=== PATIENT | female | born 1965 ===

== ENCOUNTER 2022-04-03 18:59 | Inpatient (IN) | payer OTHER, SELFPAY ==
--- NOTE | ~2022-04-03 | XR_ITS ---
EXAMINATION: XR CHEST CLINICAL INFORMATION: NG tube placement COMPARISON: 04/04/2022 TECHNIQUE: Frontal view of the chest was obtained. FINDINGS: Enteric tube tip lies in the region of the upper thoracic esophagus at the level of T2/T3. Lung volumes are symmetric. No focal consolidation is seen. No evidence of pneumothorax or significant pleural effusion, though the lateral left base is not fully included on this exam. The cardiomediastinal contour is unremarkable. No acute osseous findings are seen. XR/XR chest 1V IMPRESSION: 1. Enteric tube tip lies in the region of the upper thoracic esophagus. Repositioning recommended. 2. No acute cardiopulmonary findings.
--- NOTE | ~2022-04-03 | XR_ITS ---
EXAMINATION: XR CHEST CLINICAL INFORMATION: NG tube placement COMPARISON: Chest x-ray from earlier today TECHNIQUE: Frontal view of the chest was obtained. FINDINGS: Enteric tube tip lies in the region of the distal stomach, with side-port below the level of the diaphragm. The lungs are clear with no focal consolidation. No evidence of pneumothorax, pulmonary edema, or pleural effusions. The cardiomediastinal silhouette is unremarkable. No acute osseous findings. XR/XR chest 1V IMPRESSION: Enteric tube tip in the region of the distal stomach.
--- NOTE | ~2022-04-03 | XR_ITS ---
EXAMINATION: XR CHEST CLINICAL INFORMATION: G-tube confirmation COMPARISON: 10/30/2019 TECHNIQUE: Frontal view of the chest was obtained. FINDINGS: Enteric tube courses into the stomach with side-port below the level of the gastroesophageal junction. Lung volumes are symmetric. No focal consolidation is seen. No evidence of pneumothorax. No significant pleural effusion, though the lateral left base is not fully included on this exam. The cardiomediastinal contour is unremarkable. No acute osseous findings are seen. XR/XR chest 1V IMPRESSION: Enteric tube courses into the stomach with side-port below the level of the gastroesophageal junction.
--- NOTE | ~2022-04-03 | CT_ITS ---
EXAMINATION: CT ABDOMEN AND PELVIS WITHOUT CONTRAST CLINICAL INFORMATION: Abdominal pain COMPARISON: None TECHNIQUE: Multidetector volumetric imaging was performed from the superior aspect of the liver through the pubic symphysis. Sagittal and coronal reformatted images were obtained on the technologist's workstation. This CT examination was performed using dose optimization techniques as appropriate, variously including the following: *Automated exposure control *Adjustment of mA and/or kV according to patient size (this includes techniques or standardized protocols for targeted exams where dose is matched to indication/reason for exam; i.e. extremities or head) *Use of iterative reconstruction technique DLP: 395 mGy-cm FINDINGS: LUNG BASES: The visualized lung bases are unremarkable. LIVER, GALLBLADDER, AND BILIARY TREE: The liver is normal in size, shape, and attenuation. No focal hepatic lesion or biliary ductal dilatation is present. The gallbladder is unremarkable with no evidence of radiopaque gallstones, gallbladder wall thickening, or obvious pericholecystic inflammatory changes. PANCREAS: Unremarkable. SPLEEN: Unremarkable. ADRENAL GLANDS: Unremarkable. KIDNEYS AND URETERS: The kidneys are normal in size, shape, and attenuation. No hydronephrosis, hydroureter, or calculi seen. No perinephric stranding. BLADDER: Unremarkable. GASTROINTESTINAL TRACT: Large volume stool in the rectal vault with thickening of the rectosigmoid colon. The large bowel is otherwise decompressed. There are multiple dilated loops of small bowel extending to the ileocolic valve, a discrete transition point is not visualized. Left mid hemiabdomen anastomosis is noted. There is free pelvic fluid. ABDOMINAL WALL: No significant hernia is appreciated. Midline surgical incision scar is noted. LYMPH NODES: Normal. VASCULAR: Unremarkable. PELVIC VISCERA: Unremarkable. OSSEOUS STRUCTURES: Unremarkable. CT/CT abdomen pelvis wo IV con IMPRESSION: 1. Multiple dilated loops of small bowel extending to the ileocolic valve, a discrete transition point is not visualized. These findings are concerning for small bowel obstruction. 2. Large volume stool in the rectal vault with thickening of the rectosigmoid colon. This may reflect stercoral colitis. 3. There is free pelvic fluid which may be secondary to inflammation or bowel obstruction. Fleischner guidelines were followed.
[2022-04-03 19:05] VITALS: BP 136/101; RESP 18; TEMP 36.1; BMI 18.7
[2022-04-03 20:13] LABS: MANUAL DIFF FLAG NO
[2022-04-03 20:14] LABS: Basophils Percent Auto 0.2 % (0-2); Eosinophils Percent Auto 0.2 % (0-4); Hematocrit 48.7 % (37.0-47.0); Hemoglobin 15.8 g/dl (12.0-16.0); Imm Gran Abs Auto 0.03 X10*3/uL (0.00-0.03); Imm Gran Pct Auto 0.3 % (0.0-0.4); Lymphocytes Absolute Auto 1.5 X10*3/uL (1.2-4.9); Mean Corpuscular HGB Conc 32.4 g/dl (31.0-35.0); Mean Corpuscular Hemoglobin 29.3 pg (27.0-33.0); Mean Corpuscular Volume 90.2 fL (80.0-98.0); Mean Platelet Volume 10.6 fL (9.4-12.3); Monocytes Absolute Auto 0.6 X10*3/uL (0.1-1.2); Monocytes Percent Auto 5.5 % (2-11); Neutrophils Absolute Auto 9.3 x10*3/uL (2.0-8.3); Neutrophils Percent Auto 80.8 % (45-73); Platelet Count 345 X10*3/uL (160-400); Red Cell Distribution Width 13.1 % (11.0-16.0); White Blood Count 11.5 X10*3/uL (4.8-10.8)
[2022-04-03 20:39] LABS: Anion Gap 22 (12-20); Blood Urea Nitrogen 33 mg/dL (9-16); Calcium 10.3 mg/dL (8.4-10.2); Carbon Dioxide 33 mmol/L (22-29); Chloride 96 mmol/L (96-108); Creatinine Clr Calc Pharmacy 61.6; Estimated Glomerular Filt Rate > 60; Glucose Random 133 mg/dL (60-115); Potassium 3.2 mmol/L (3.3-5.1); Sodium 148 mmol/L (135-145)
--- NOTE | 2022-04-03 22:15 | PC.NURSE ---
PT laying in stretcher, no apparent distress. Daughter at bedside, reports PT c/o abd pain and black emesis. PT not able to formulate sentences, word salad. 5/10 on the faces pain scale. IV placed. PT able to stand on side of bed with two assist.PT incontinent of stool/urine. Incontinent care provided.
--- NOTE | 2022-04-03 22:23 | ED_ITS ---
HPI - Nausea/Vomiting/Diarrhea General Chief complaint: Nausea/Vomiting/Diarrhea Stated complaint: vomiting, not feeling well Time Seen by Provider: 04/03/22 22:15 Source: family Limitations: other (dementia) History of Present Illness HPI Narrative: This is a 56 years old female with history of early dementia no verbal a baseline, presented with the daughter with a chief complaint of nausea vomiting the history is obtained by the daughter that tells me she has been vomiting today. MD elicited complaint: vomiting and diarrhea Pertinent past history: other (dementia) Onset (ago): hour(s) (10) Description of diarrhea: watery Associated nausea: Yes Associated abdominal pain: Yes Related Data Home Medications Medication Instructions Recorded Confirmed amlodipine 10 mg tablet 1 tab PO DAILY 04/04/22 04/04/22 fluoxetine 10 mg capsule 1 cap PO DAILY 04/04/22 04/04/22 hydrochlorothiazide 25 mg tablet 1 tab PO DAILY 04/04/22 04/04/22 risperidone 0.5 mg tablet 1 tab PO BID 04/04/22 04/04/22 trazodone 50 mg tablet 1 tab PO DAILY 04/04/22 04/04/22 Previous Rx's Medication Instructions Recorded amlodipine 10 mg tablet 10 mg PO DAILY 90 days #90 tabs 02/21/21 hydrochlorothiazide 25 mg tablet 25 mg PO DAILY 90 days #90 tabs 02/21/21 risperidone 0.5 mg tablet 0.5 mg PO BID 30 days #60 tabs 05/07/21 fluoxetine 10 mg capsule 10 mg PO DAILY 30 days #30 caps 09/24/21 trazodone 50 mg tablet 50 mg PO DAILY 30 days #30 tabs 09/24/21 Allergies Allergy/AdvReac Type Severity Reaction Status Date / Time No Known Allergies Allergy Verified 04/03/22 19:18 [No Known Allergies*] Review of Systems Review of Systems: Yes Unobtainable due to mental condition (dementia) Gastrointestinal: Gastrointestinal: Reports nausea PMF Past Medical History Attestation statement: The following information was validated with the patient. PMFSH Narrative: Dementia, depression, history of overdose Medical History B12 deficiency Surgical History History of section History of incisional hernia repair History of ventral hernia repair Family History Family History Father Pacemaker Chronic mental illness Hypertension Mother Hypertension Chronic mental illness Family/Other Chronic mental illness Brother No problems noted. Sister No problems noted. Son No problems noted. Daughter No problems noted. Daughter No problems noted. Daughter No problems noted. Social History Social History Patient Tobacco Use Status: Former Tobacco user Advance Directives: No Advance Directives Information Provided: Yes Nutrition Risks: Anorexia Physical Exam Vital Signs: Vital Signs: Last Vital Signs Temp 97.4 F 04/04/22 00:28 Pulse 76 04/04/22 00:28 Resp 16 04/04/22 00:28 BP 146/96 H 04/04/22 00:28 Pulse Ox 100 04/04/22 00:28 O2 Del Method 04/04/22 00:28 BMI result Body Mass Index 18.7 Const: General: cooperative Nutritional Appearance: average body habitus HEENT: Head: Yes normal to inspection General nose exam: Normal external nose present Face and sinus: Yes normal facial exam Mouth: Normal oral and palatal mucosa present Throat: Yes posterior oropharynx normal Neck: Neck: Yes normal visual inspection and Yes full ROM Chest: Chest palpation & inspection: normal inspection of the chest Resp: Effort & Inspection: normal respiratory effort Cardio: Rate: regular rate Rhythm: regular rhythm GI: Inspection: Yes normal to inspection Palpation (GI): Soft to palpation, not firm, nontender and no guarding Auscultation: normal bowel sounds Skin: General skin exam: no rashes or lesions noted and elasticity normal Rashes: no rashes Neuro: Other: She is awake and alert, she is nonverbal a baseline Course Reevaluation(s) Reevaluation #1: case d/w Dr Monsivais will admit the pt Time: 00:44 Medications Administered Generic Name Dose Route Start Last Admin Trade Name Freq PRN Reason Stop Dose Admin Lactated Ringer's 1,000 mls @ 999 mls/hr 04/04/22 00:15 04/04/22 00:24 Lr IV 04/04/22 01:15 999 mls/hr .Q1H1M KJ Administration Discontinued Medications Generic Name Dose Route Start Last Admin Trade Name Freq PRN Reason Stop Dose Admin Lactated Ringer's 500 mls @ 999 mls/hr 04/03/22 22:30 04/04/22 00:01 Lr IV 04/03/22 23:00 Infused .Q31M KJ Infusion Ondansetron HCl 4 mg 04/03/22 22:18 04/03/22 23:04 Ondansetron Hcl 4 Mg/2 Ml Vial IVPUSH 04/03/22 22:19 4 mg ONCE ONE Administration Medical Decision Making Medical Decision Making [facility] Narrative: 56 years old woman presented with the nausea vomiting will get labs IV fluid reassess Differential Diagnosis Differential Diagnoses: The differential diagnosis associated with the presentation includes Colitis diverticulitis gastroenteritis Admission/Observation Consideration of admission/observation: Escalation of care including admission/observation considered Consult Healthcare Provider Management of the patient was discussed with: Acid Bleacher Dr monsivais Lab Data [facility] Lab Attestation statement: I reviewed the patient's lab results. 04/03/22 20:08 04/03/22 20:08 Labs: Lab Results 04/03/22 04/03/22 Range/Units 20:08 20:08 WBC 11.5 H (4.8-10.8) X10*3/uL RBC 5.40 (4.20-5.50) X10*6/uL Hgb 15.8 (12.0-16.0) g/dl Hct 48.7 H (37.0-47.0) % MCV 90.2 (80.0-98.0) fL MCH 29.3 (27.0-33.0) pg MCHC 32.4 (31.0-35.0) g/dl RDW 13.1 (11.0-16.0) % Plt Count 345 (160-400) X10*3/uL MPV 10.6 (9.4-12.3) fL Immature Gran % (Auto) 0.3 (0.0-0.4) % Neut % (Auto) 80.8 H (45-73) % Lymph % (Auto) 13.0 L (20-40) % [place] % (Auto) 5.5 (2-11) % Eos % (Auto) 0.2 (0-4) % Baso % (Auto) 0.2 (0-2) % Lymph # (Auto) 1.5 (1.2-4.9) X10*3/uL [place] # (Auto) 0.6 (0.1-1.2) X10*3/uL Eos # (Auto) 0.0 (0.0-0.4) X10*3/uL Baso # (Auto) 0.0 (0.0-0.2) X10*3/uL Abs Immat Gran (auto) 0.03 (0.00-0.03) X10*3/uL Absolute Neuts (auto) 9.3 H (2.0-8.3) x10*3/uL Absolute Nucleated RBC 0.000 (0.0-0.012) X10*3/uL Nucleated RBC % (auto) 0.0 (0.0-0.2) /100WBC Sodium 148 H (135-145) mmol/L Potassium 3.2 L (3.3-5.1) mmol/L Chloride 96 (96-108) mmol/L Carbon Dioxide 33 H (22-29) mmol/L Anion Gap 22 H (12-20) BUN 33 H (9-16) mg/dL Creatinine 0.84 (0.5-1.4) mg/dL Estim Creat Clear Calc 61.6 Estimated GFR > 60 Random Glucose 133 H (60-115) mg/dL Calcium 10.3 H (8.4-10.2) mg/dL Independent Interpretation I performed an independent interpretation of an: CT Scan Interpretation: i reviewed ct scan my self Radiology Impression Discussion of test interpretation with radiology: I have reviewed the radiologist's reading. Radiologist Impression: normal in size, shape, and attenuation. No hydronephrosis, hydroureter, or calculi seen. No perinephric stranding. ? BLADDER: Unremarkable.? GASTROINTESTINAL TRACT: Large volume stool in the rectal vault with thickening of the rectosigmoid colon. The large bowel is otherwise decompressed. There are multiple dilated loops of small bowel extending to the ileocolic valve, a discrete transition point is not visualized. Left mid hemiabdomen anastomosis is noted. There is free pelvic fluid. ABDOMINAL WALL: No significant hernia is appreciated. Midline surgical incision scar is noted. LYMPH NODES: Normal. VASCULAR: Unremarkable. PELVIC VISCERA: Unremarkable.? OSSEOUS STRUCTURES: Unremarkable.? CT/CT abdomen pelvis wo IV con IMPRESSION: 1.? Multiple dilated loops of small bowel extending to the ileocolic valve, a discrete transition point is not visualized. These findings are concerning for small bowel obstruction. 2.? Large volume stool in the rectal vault with thickening of the rectosigmoid colon. This may reflect stercoral colitis. 3.? There is free pelvic fluid which may be secondary to inflammation or bowel obstruction. Fleischner guidelines were f Independent Historian Clinical information obtained from an independent historian. History obtained from or confirmed by: Other (Daughter) External Record Review External record reviewed: Inpatient record Chronic Conditions Patient?s care impacted by: Other (dementia) Discharge Plan Discharge Clinical Impression: SBO (small bowel obstruction) Patient Disposition: Admitted As Inpatient
[2022-04-03] MEDS: ondansetron HCL 4 MG/2 ML VIAL IVPUSH (23:04)
[2022-04-03] MEDS: Lactated Ringers 500 ML 999 ML IV (23:13)
[2022-04-04] VITALS (8 sets, daily range): BP systolic 99–156; BP diastolic 69–96; PULSE 65–100; RESP 12–76; TEMP 35.7–37.3; O2SAT 95–100; BMI 18.7
[2022-04-04] MEDS: Lactated Ringers 1,000 ML 999 ML IV (00:24)
[2022-04-04 01:20] LABS: COVID-19 Test Negative (Negative); IDNOW Serial# 6674DD1D
[2022-04-04] MEDS: Dextrose 5 % and Lactated Ring 1,000 ML 125 ML IVCONT ×3 (01:28→17:21)
[2022-04-04] MEDS: Heparin Sodium,Porcine 5,000 UNIT/ML VIAL 5000 UNIT SUBCUT ×2 (01:28→15:16)
--- NOTE | 2022-04-04 03:50 | PC.NURSE ---
NG tube inserted to right nare, secured. Draining dark brown/black liquid. x-ray obtained. Daughter remains at bedside.
--- NOTE | 2022-04-04 07:49 | P.HPGS_ITS ---
History of Present Illness History of Present Illness Date of Service: 04/04/22 Chief complaint: small bowel obstruction Narrative: Shalonda Murguia is a 56 year old female presenting with complaints of nausea and vomiting, evaluated in the emergency department and determined to have a small b owel obstruction. Her past history is significant for dementia and she is non- verbal. She has a previous surgical history of an abdominal hernia repair in [place] complicated by mesh infection. 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 She was previously admitted to the surgical service in 2018 for small bowel obstruction and found to have a recurrent incisional her álvaro. She underwent hernia repair without mesh at that time. She returns today with abdominal distension, nausea, vomiting and diarrhea. CT abdomen without contrast revealed diffusely dilated small bowel with a large amount of stool in the rectum with surrounding inflammation. No definite transition point is identified. Review of Systems Review of Systems: Yes Unobtainable due to mental status PMF Past Medical History Medical History B12 deficiency Family History Family History Father Pacemaker Chronic mental illness Hypertension Mother Hypertension Chronic mental illness Family/Other Chronic mental illness Brother No problems noted. Sister No problems noted. Son No problems noted. Daughter No problems noted. Daughter No problems noted. Daughter No problems noted. Surgical History Surgical History History of section History of incisional hernia repair History of ventral hernia repair Social History Social History Alcohol intake: never Patient Tobacco Use Status: Former Tobacco user Smoked in Last 30 Days: No Use of substances other than those prescribed or required for medical reasons: No Advance Directives: No Advance Directives Information Provided: Yes Nutrition Risks: Anorexia Patient : No Meds Allergies Allergy/AdvReac Type Severity Reaction Status Date / Time No Known Allergies Allergy Verified 04/03/22 19:18 [No Known Allergies*] Active Medications: Current Medications Heparin Sodium (Porcine) (Heparin Sodium,Porcine 5,000 Unit/Ml Vial) 5,000 unit SUBCUT Q12H KJ Last Admin: 04/04/22 01:28 Dose: 5,000 unit Hydromorphone HCl (Hydromorphone Hcl 0.5 Mg/0.5 Ml Syringe) 0.5 mg IVPUSH Q3H PRN; Protocol PRN Reason: Pain, Severe (Pain Scale 7-10) Dextrose/Lactated Ringer's (D5lr) 1,000 mls @ 125 mls/hr IVCONT .Q8H [facility] Last Admin: 04/04/22 01:28 Dose: 125 mls/hr Ondansetron HCl (Ondansetron Hcl 4 Mg/2 Ml Vial) 4 mg IVPUSH QID PRN PRN Reason: Nausea Pharmacy Consult (Consult Rx Perform Med Rec) 1 each MISCELLANE ONCE PRN PRN Reason: Consult order Sodium Chloride (0.9 % Sodium Chloride Flush 3 Ml Syringe) 3 ml IVFLUSH QSHIFT [facility] Home Medications Medication Instructions Recorded Confirmed Last Taken Type amlodipine 10 mg tablet 1 tab PO DAILY 04/04/22 04/04/22 Unknown History fluoxetine 10 mg capsule 1 cap PO DAILY 04/04/22 04/04/22 Unknown History hydrochlorothiazide 25 mg tablet 1 tab PO DAILY 04/04/22 04/04/22 Unknown History risperidone 0.5 mg tablet 1 tab PO BID 04/04/22 04/04/22 Unknown History trazodone 50 mg tablet 1 tab PO BEDTIME 04/04/22 04/04/22 Unknown History Physical Exam Vital Signs: Vital Signs: Last Vital Signs Temp 97.4 F 04/04/22 00:28 Pulse 77 04/04/22 07:29 Resp 12 04/04/22 07:29 BP 99/72 04/04/22 07:29 Pulse Ox 95 04/04/22 07:29 O2 Del Method 04/04/22 07:29 BMI result Body Mass Index 18.7 Const: Other: somnulent, lethargic, opens eyes to voice, non-verbal Eyes: Sclerae: sclerae normal Resp: Effort & Inspection: normal respiratory effort, not labored, no stridor and no tracheal deviation GI: Inspection: Yes normal to inspection, Yes distended and Yes scar Palpation (GI): Soft to palpation, nontender, no guarding and not rigid Percussion: Yes dullness to percussion Auscultation: Absent bowel sounds Rectal Exam - Female: deferred Extrem: Other: contracted lower extremities Results Results Labs: Short CBC 04/03/22 Range/Units 20:08 WBC 11.5 H (4.8-10.8) X10*3/uL Hgb 15.8 (12.0-16.0) g/dl Hct 48.7 H (37.0-47.0) % Plt Count 345 (160-400) X10*3/uL BMP 04/03/22 20:08 Sodium 148 H Potassium 3.2 L Chloride 96 Carbon Dioxide 33 H BUN 33 H Creatinine 0.84 Calcium 10.3 H Assessment and Plan (1) SBO (small bowel obstruction): Status: Acute (2) Dementia: Status: Acute Plan Unfortunate 56 year old female with severe dementia [facility] apparent small bowel obstruction by non-contrasted CT abdomen and pelvis. Patient with prior history on multiple abdominal surgeries and history of Enterocutaneous fistula. Current exam is difficult to interpret due to the dementia. CT is not very clear as well. NGT placed and drained dark brown/black fluid. Will plan non-operative management with IV hydration and bowel rest/NGT decompression for the next several days. Contrasted CT may be needed if no improvement of symptoms. Time Spent With Patient Time: Total time managing care of this patient today 30 minutes. Quality Stroke Does the patient have a stroke diagnosis?: No VTE Prior VTE?: No VTE Risk Level:: Surgical - moderate VTE Device Contraindication: N/A - Device Ordered VTE Drug Contraindication: N/A - Med Ordered Procedures Date of Service Date of Service: 04/04/22
--- NOTE | 2022-04-04 08:06 | PC.NURSE ---
rn to rn report given randy. pt/daughter aware of plan of care.
--- NOTE | 2022-04-04 08:14 | PHA.MEDREC ---
Pharmacy Consult ? Medication Reconciliation Pharmacy has completed the medication reconciliation. Spoke with daughter via talk show host. Patient last took her medications about 1 week ago. daughter had med list on her phone
--- NOTE | 2022-04-04 13:14 | HO.PM.IMCN ---
History of Present Illness Data of Consult Service Date: 04/04/22 <JERRY Vines - Last Filed: 04/04/22 13:40> Primary Care Provider: Camila Gambino MD <JERRY Vines - Last Filed: 04/04/22 13:40> HPI Reason for consult: Med management <JERRY Vines - Last Filed: 04/04/22 13:40> Pt is a 56-year-old female with a PMH significant for early onset dementia with limited verbal capabilities, HTN, mood disorder, and hx of hernia repair complicated by enterocutaneous fistula who presented to the ED with N/V, abdominal distention, diarrhea and determined to have a SBO. General surgery consult for medication management. Patient is Kyrgyz-speaking only and accompanied by her daughter. Patient seen and evaluated at bedside, somnolent, lethargic, opens eyes to commands but unable to provide HPI. <JERRY Vines - Last Filed: 04/04/22 13:40> Review of Systems Review of Systems: Unable to obtain due to patient's mentation <JERRY Vines - Last Filed: 04/04/22 13:40> [facility] Medical History: Medical History B12 deficiency <JERRY Vines - Last Filed: 04/04/22 13:40> Family History: Family History Father Pacemaker Chronic mental illness Hypertension Mother Hypertension Chronic mental illness Family/Other Chronic mental illness Brother No problems noted. Sister No problems noted. Son No problems noted. Daughter No problems noted. Daughter No problems noted. Daughter No problems noted. <JERRY Vines - Last Filed: 04/04/22 13:40> Surgical History: Surgical History History of section History of incisional hernia repair History of ventral hernia repair <JERRY Vines - Last Filed: 04/04/22 13:40> Social History: Social History Household Members: Family Household Members Other:: lives with son Housing: Apartment Do you presently have visiting nurse or other home services: Yes (2 days per week) Unable to assess alcohol history related to: Unable to respond Alcohol intake: never Patient Tobacco Use Status: Former Tobacco user Tobacco use type: Cigarette Years Smoked: 20 e-Cigarette/Vaping Use: Never Used Second Hand Smoke Exposure: No service: No <JERRY Vines - Last Filed: 04/04/22 13:40> Meds Allergies/Adverse reactions: Allergies Allergy/AdvReac Type Severity Reaction Status Date / Time No Known Allergies Allergy Verified 04/03/22 19:18 [No Known Allergies*] <JERRY Vines - Last Filed: 04/04/22 13:40> Active Medications: Current Medications Amlodipine Besylate (Amlodipine Besylate 10 Mg Tablet) 10 mg PO DAILY [facility]; Protocol Fluoxetine HCl (Fluoxetine Hcl 10 Mg Capsule) 10 mg PO DAILY [facility] Heparin Sodium (Porcine) (Heparin Sodium,Porcine 5,000 Unit/Ml Vial) 5,000 unit SUBCUT Q12H [facility] Last Admin: 04/04/22 01:28 Dose: 5,000 unit Hydromorphone HCl (Hydromorphone Hcl 0.5 Mg/0.5 Ml Syringe) 0.5 mg IVPUSH Q3H PRN; Protocol PRN Reason: Pain, Severe (Pain Scale 7-10) Dextrose/Lactated Ringer's (D5lr) 1,000 mls @ 125 mls/hr IVCONT .Q8H [facility] Last Admin: 04/04/22 09:32 Dose: 125 mls/hr Ondansetron HCl (Ondansetron Hcl 4 Mg/2 Ml Vial) 4 mg IVPUSH QID PRN PRN Reason: Nausea Pharmacy Consult (Consult Rx Perform Med Rec) 1 each MISCELLANE ONCE PRN PRN Reason: Consult order Risperidone (Risperidone 0.5 Mg Tablet) 0.5 mg PO BID [facility] Sodium Chloride (0.9 % Sodium Chloride Flush 3 Ml Syringe) 3 ml IVFLUSH QSHIFT [facility] Last Admin: 04/04/22 09:31 Dose: Not Given Trazodone HCl (Trazodone Hcl 50 Mg Tablet) 50 mg PO BEDTIME [facility] <JERRY Vines - Last Filed: 04/04/22 13:40> Home medications: Home Medications Medication Instructions Recorded Confirmed Last Taken Type amlodipine 10 mg tablet 1 tab PO DAILY 04/04/22 04/04/22 03/28/22 History fluoxetine 10 mg capsule 1 cap PO DAILY 04/04/22 04/04/22 03/28/22 History hydrochlorothiazide 25 mg tablet 1 tab PO DAILY 04/04/22 04/04/22 03/28/22 History risperidone 0.5 mg tablet 1 tab PO BID 04/04/22 04/04/22 03/28/22 History trazodone 50 mg tablet 1 tab PO BEDTIME 04/04/22 04/04/22 03/28/22 History <JERRY Vines - Last Filed: 04/04/22 13:40> Physical Exam Vital Signs and Narrative: Vital Signs: Last Vital Signs Temp 98.5 F 04/04/22 10:00 Pulse 65 04/04/22 08:07 Resp 76 H 04/04/22 10:00 BP 120/73 04/04/22 10:00 Pulse Ox 95 04/04/22 10:00 O2 Del Method 04/04/22 10:00 BMI result Body Mass Index 18.7 <JERRY Vines - Last Filed: 04/04/22 13:40> General: Somnolent, lethargic, opens eyes to verbal commands Resp: CTA bilaterally CVS: S1, S2, RRR GI: Abdomen soft, nontender, nondistended. Bowel sounds absent. Skin: No rash Extremities: No edema <JERRY Vines - Last Filed: 04/04/22 13:40> Results Labs CBC and Chem 7: 04/03/22 20:08 04/03/22 20:08 <JERRY Vines - Last Filed: 04/04/22 13:40> Labs: Laboratory Results - last 24 hr 04/03/22 04/03/22 04/04/22 20:08 20:08 01:03 MCV 90.2 MCH 29.3 MCHC 32.4 RDW 13.1 Plt Count 345 MPV 10.6 Immature Gran % (Auto) 0.3 Neut % (Auto) 80.8 H Lymph % (Auto) 13.0 L [place] % (Auto) 5.5 Eos % (Auto) 0.2 Baso % (Auto) 0.2 Lymph # (Auto) 1.5 [place] # (Auto) 0.6 Eos # (Auto) 0.0 Baso # (Auto) 0.0 Abs Immat Gran (auto) 0.03 Absolute Neuts (auto) 9.3 H Absolute Nucleated RBC 0.000 Nucleated RBC % (auto) 0.0 Anion Gap 22 H Estim Creat Clear Calc 61.6 Estimated GFR > 60 Random Glucose 133 H Calcium 10.3 H COVID-19 ([facility]) Negative COVID-19 Clin Com See Note <JERRY Vines - Last Filed: 04/04/22 13:40> Imaging Radiologist's Impressions: Impressions Abdomen/Pelvis CT 04/03/22 22:57 IMPRESSION: 1. Multiple dilated loops of small bowel extending to the ileocolic valve, a discrete transition point is not visualized. These findings are concerning for small bowel obstruction. 2. Large volume stool in the rectal vault with thickening of the rectosigmoid colon. This may reflect stercoral colitis. 3. There is free pelvic fluid which may be secondary to inflammation or bowel obstruction. Fleischner guidelines were followed. Chest X-Ray 04/04/22 03:59 IMPRESSION: Enteric tube courses into the stomach with side-port below the level of the gastroesophageal junction. <JERRY Vines Last Filed: 04/04/22 13:40> Assessment and Plan (1) SBO (small bowel obstruction): Status: Acute <JERRY Vines - Last Filed: 04/04/22 13:40> (2) Dementia: Status: Acute <JERRY Vines - Last Filed: 04/04/22 13:40> Pt is a 56-year-old female with a PMH significant for early onset dementia with limited verbal capabilities, HTN, mood disorder, and hx of hernia repair complicated by enterocutaneous fistula who presented to the ED with N/V, abdominal distention, diarrhea and determined to have a SBO. General surgery consult for medication management. HTN Continue amlodipine, hold hydrochlorothiazide Monitor BP Mood disorder Continue fluoxetine, risperidone SBO Plan as per Surgery team Thank you for allowing us to participate in the care of this pt. We will follow at this time. Please contact us if there are any acute concerns or questions. <JERRY Vines Last Filed: 04/04/22 13:40> Pt is a 56-year-old female with a PMH significant for early onset dementia with limited verbal capabilities, HTN, mood disorder, and hx of hernia repair complicated by enterocutaneous fistula who presented to the ED with N/V, abdominal distention, diarrhea and determined to have a SBO. General surgery consult for medication management. HTN Continue amlodipine reduce dose to 5mg since bp soft, hold hydrochlorothiazide Monitor BP Mood disorder Continue fluoxetine, risperidone SBO Plan as per Surgery team Thank you for allowing us to participate in the care of this pt. We will follow at this time. Please contact us if there are any acute concerns or questions. <Kris Toro MD - Last Filed: 04/04/22 16:37> Time Spent With Patient Time: Total time managing care of this patient today ____ minutes. <JERRY Vines - Last Filed: 04/04/22 13:40>
--- NOTE | 2022-04-04 13:40 | MHC.CM.PN ---
with interpertator met with pt and dgter basilio gomez [phone] who explins that pt has herpetologist servceis which family is hoping to increase pt lives with brother pt is active with [facility] attempted to do a hcp with pt pt is too confused plan is forpt to return home with [facility] and herpetologist,may need help with transport home
[2022-04-04] MEDS: risperiDONE 0.5 MG TABLET PO (21:22)
[2022-04-04] MEDS: traZODone HCL 50 MG TABLET PO (21:22)
[2022-04-04] MEDS: 0.9 % Sodium Chloride Flush 3 ML SYRINGE IVFLUSH (23:18)
[2022-04-05] VITALS (7 sets, daily range): BP systolic 138–152; BP diastolic 80–92; PULSE 64–78; RESP 15–18; TEMP 36.4–37.1; O2SAT 95–100
[2022-04-05] MEDS: Heparin Sodium,Porcine 5,000 UNIT/ML VIAL 5000 UNIT SUBCUT ×2 (02:16→13:25)
[2022-04-05] MEDS: LORazepam 2 MG/ML VIAL 1 MG IVPUSH (03:40)
[2022-04-05] MEDS: Dextrose 5 % and Lactated Ring 1,000 ML 125 ML IVCONT ×2 (03:43→14:39)
[2022-04-05 06:36] LABS: MANUAL DIFF FLAG NO
[2022-04-05 06:41] LABS: Basophils Percent Auto 0.6 % (0-2); Eosinophils Absolute Auto 0.1 X10*3/uL (0.0-0.4); Eosinophils Percent Auto 0.8 % (0-4); Hematocrit 33.3 % (37.0-47.0); Hemoglobin 10.5 g/dl (12.0-16.0); Imm Gran Abs Auto 0.02 X10*3/uL (0.00-0.03); Imm Gran Pct Auto 0.3 % (0.0-0.4); Lymphocytes Absolute Auto 2.1 X10*3/uL (1.2-4.9); Mean Corpuscular HGB Conc 31.5 g/dl (31.0-35.0); Mean Corpuscular Hemoglobin 29.2 pg (27.0-33.0); Mean Corpuscular Volume 92.5 fL (80.0-98.0); Mean Platelet Volume 10.8 fL (9.4-12.3); Monocytes Absolute Auto 0.5 X10*3/uL (0.1-1.2); Neutrophils Absolute Auto 4.4 x10*3/uL (2.0-8.3); Neutrophils Percent Auto 61.3 % (45-73); Platelet Count 222 X10*3/uL (160-400); Red Cell Distribution Width 13.1 % (11.0-16.0); White Blood Count 7.1 X10*3/uL (4.8-10.8)
--- NOTE | 2022-04-05 10:29 | PM.PNGS ---
Subjective Subjective Date of Service: 04/05/22 Interval history: The patient is seen in coverage for Dr. Monsivais Per nursing staff, the patient was agitated overnight and just received sedation. She was pulling at the nasogastric tube. Patient is comfortable now having been medicated. Physical Exam Vital Signs: Vital Signs: Last Vital Signs Temp 98.4 F 04/05/22 08:00 Pulse 71 04/05/22 08:00 Resp 18 04/05/22 08:00 BP 142/91 H 04/05/22 08:00 Pulse Ox 98 04/05/22 08:00 O2 Del Method 04/05/22 08:00 BMI result Body Mass Index 18.7 Abdomen is nondistended and soft with no apparent tenderness Objective Data Active Medications Amlodipine Besylate (Amlodipine Besylate 5 Mg Tablet) 5 mg PO DAILY [facility]; Protocol Fluoxetine HCl (Fluoxetine Hcl 10 Mg Capsule) 10 mg PO DAILY [facility] Heparin Sodium (Porcine) (Heparin Sodium,Porcine 5,000 Unit/Ml Vial) 5,000 unit SUBCUT Q12H [facility] Last Admin: 04/05/22 02:16 Dose: 5,000 unit Documented By: HUMA Hydromorphone HCl (Hydromorphone Hcl 0.5 Mg/0.5 Ml Syringe) 0.5 mg IVPUSH Q3H PRN; Protocol PRN Reason: Pain, Severe (Pain Scale 7-10) Dextrose/Lactated Ringer's (D5lr) 1,000 mls @ 125 mls/hr IVCONT .Q8H [facility] Last Admin: 04/05/22 10:17 Dose: Not Given Documented By: PARKER Non-Admin Reason: IV Running Ondansetron HCl (Ondansetron Hcl 4 Mg/2 Ml Vial) 4 mg IVPUSH QID PRN PRN Reason: Nausea Pharmacy Consult (Consult Rx Perform Med Rec) 1 each MISCELLANE ONCE PRN PRN Reason: Consult order Risperidone (Risperidone 0.5 Mg Tablet) 0.5 mg PO BID [facility] Last Admin: 04/04/22 21:22 Dose: 0.5 mg Documented By: HUMA Sodium Chloride (0.9 % Sodium Chloride Flush 3 Ml Syringe) 3 ml IVFLUSH QSHIFT [facility] Last Admin: 04/05/22 10:17 Dose: Not Given Documented By: HO.LINGH Non-Admin Reason: IV Running Trazodone HCl (Trazodone Hcl 50 Mg Tablet) 50 mg PO BEDTIME [facility] Last Admin: 04/04/22 21:22 Dose: 50 mg Documented By: HUMA Labs 04/05/22 05:57 04/03/22 20:08 Labs: Laboratory Results - last 24 hr 04/05/22 05:57 MCV 92.5 MCH 29.2 MCHC 31.5 RDW 13.1 Plt Count 222 D MPV 10.8 Immature Gran % (Auto) 0.3 Neut % (Auto) 61.3 Lymph % (Auto) 30.0 [place] % (Auto) 7.0 Eos % (Auto) 0.8 Baso % (Auto) 0.6 Lymph # (Auto) 2.1 [place] # (Auto) 0.5 Eos # (Auto) 0.1 Baso # (Auto) 0.0 Abs Immat Gran (auto) 0.02 Absolute Neuts (auto) 4.4 Absolute Nucleated RBC 0.000 Nucleated RBC % (auto) 0.0 Procedures Date of Service Date of Service: 04/05/22 Progress Note: A&P Assessment and plan (1) SBO (small bowel obstruction): Status: Acute (2) Dementia: Status: Acute (3) B12 deficiency: Status: Acute Plan See orders regarding NG tube clamping schedule. Try clamping the NG for 4 hours. Restart the nasogastric tube if the patient becomes bloated, nauseous or has vomiting. After 4 hours, restart the nasogastric tube for 1 hour and record output. Continue this clamping schedule and we will reassess the entire output next 24 hours. Patient is a little dry with an elevated BUN. Continue IV fluids and trend labs. Await evidence of bowel function Time Spent With Patient Time: Total time managing care of this patient today ____ minutes. Quality Stroke Does the patient have a stroke diagnosis?: No VTE Prior VTE?: No VTE Risk Level:: Surgical - moderate VTE Device Contraindication: N/A - Device Ordered VTE Drug Contraindication: N/A - Med Ordered
--- NOTE | 2022-04-05 12:29 | P.PNIM_ITS ---
Subjective Subjective Date of Service: 04/05/22 Interval History: Seen in follow-up for small bowel obstruction Interval history: Patient is nonverbal but sister is at bedside who is here overnight. She denies any overnight events including vomiting. Patient has not moved her bowels. She has been noted to be agitated trying to pull out NG tube but is resting comfortably on my exam with NG Tube in place. Review of Systems Review of Systems: Yes Unobtainable due to mental condition and Unobtainable due to mental status Physical Exam Vital Signs: Vital Signs: Last Vital Signs Temp 97.6 F 04/05/22 11:41 Pulse 67 04/05/22 11:41 Resp 18 04/05/22 11:41 BP 151/86 H 04/05/22 11:41 Pulse Ox 99 04/05/22 11:41 O2 Del Method 04/05/22 11:41 BMI result Body Mass Index 18.7 Constitutional - Awake and Alert, No apparent distress Eyes - PERRLA, EOMI Cardiovascular - S1S2, RRR, No edema Respiratory - Normal lung expansion, Normal respiratory effort, No respiratory distress, CTA bilaterally Gastrointestinal - NT / ND; +BS; No rebound or guarding Extremities - no calf tenderness bilaterally, no swelling Skin - Warm/Dry Neurological - Alert & disoriented Objective Data Active Medications Amlodipine Besylate (Amlodipine Besylate 5 Mg Tablet) 5 mg PO DAILY [facility]; Protocol Last Admin: 04/05/22 10:30 Dose: Not Given Documented By: PARKER Non-Admin Reason: pt unable to follow command to swallow Fluoxetine HCl (Fluoxetine Hcl 10 Mg Capsule) 10 mg PO DAILY [facility] Last Admin: 04/05/22 10:30 Dose: Not Given Documented By: PARKER Non-Admin Reason: pt unable to follow command to swallow Heparin Sodium (Porcine) (Heparin Sodium,Porcine 5,000 Unit/Ml Vial) 5,000 unit SUBCUT Q12H [facility] Last Admin: 04/05/22 02:16 Dose: 5,000 unit Documented By: HUMA Hydromorphone HCl (Hydromorphone Hcl 0.5 Mg/0.5 Ml Syringe) 0.5 mg IVPUSH Q3H PRN; Protocol PRN Reason: Pain, Severe (Pain Scale 7-10) Dextrose/Lactated Ringer's (D5lr) 1,000 mls @ 125 mls/hr IVCONT .Q8H [facility] Last Admin: 04/05/22 10:17 Dose: Not Given Documented By: PARKER Non-Admin Reason: IV Running Ondansetron HCl (Ondansetron Hcl 4 Mg/2 Ml Vial) 4 mg IVPUSH QID PRN PRN Reason: Nausea Pharmacy Consult (Consult Rx Perform Med Rec) 1 each MISCELLANE ONCE PRN PRN Reason: Consult order Risperidone (Risperidone 0.5 Mg Tablet) 0.5 mg PO BID [facility] Last Admin: 04/05/22 10:30 Dose: Not Given Documented By: PARKER Non-Admin Reason: pt unable to follow command to swallow Sodium Chloride (0.9 % Sodium Chloride Flush 3 Ml Syringe) 3 ml IVFLUSH QSHIFT [facility] Last Admin: 04/05/22 10:17 Dose: Not Given Documented By: PARKER Non-Admin Reason: IV Running Trazodone HCl (Trazodone Hcl 50 Mg Tablet) 50 mg PO BEDTIME [facility] Last Admin: 04/04/22 21:22 Dose: 50 mg Documented By: HUMA Labs 04/05/22 05:57 04/03/22 20:08 Labs: Laboratory Results - last 24 hr 04/05/22 05:57 MCV 92.5 MCH 29.2 MCHC 31.5 RDW 13.1 Plt Count 222 D MPV 10.8 Immature Gran % (Auto) 0.3 Neut % (Auto) 61.3 Lymph % (Auto) 30.0 [place] % (Auto) 7.0 Eos % (Auto) 0.8 Baso % (Auto) 0.6 Lymph # (Auto) 2.1 [place] # (Auto) 0.5 Eos # (Auto) 0.1 Baso # (Auto) 0.0 Abs Immat Gran (auto) 0.02 Absolute Neuts (auto) 4.4 Absolute Nucleated RBC 0.000 Nucleated RBC % (auto) 0.0 Assessment and Plan (1) SBO (small bowel obstruction): Status: Acute Plan Pt is a 56-year-old female with a PMH significant for 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 General surgery c onsult for medication management. #HTN- reasonably controlled Continue amlodipine, hold hydrochlorothiazide. Consider resuming once diet advanced Monitor BP #Mood disorder/dementia Continue fluoxetine, risperidone #SBO Plan as per Surgery team NPO, continue IVF WBC trending down Thank you for allowing us to participate in the care of this pt. We will follow at this time. Please contact us if there are any acute concerns or questions. Time Spent With Patient Time: Total time managing care of this patient today ____ minutes. Quality Stroke Does the patient have a stroke diagnosis?: No VTE Prior VTE?: No VTE Risk Level:: Surgical - moderate VTE Device Contraindication: N/A - Device Ordered VTE Drug Contraindication: N/A - Med Ordered
--- NOTE | 2022-04-05 13:44 | PC.NURSE ---
incident occurred around 13:30 when checking in on PT this nurse noticed NG tube was pulled out. This nurse asked sitter in room sitting with pt did someone come in and pull the tube that's in her nose out in which the sitter replied with I don't think so, I came in about 15-20 minutes ago and there was nothing on her face . This nurse and sitter searched bed for NG tube and it was tangled up in some blankets. NG tube was clammed per order around 10:45 for 4hrs and to restart on low intermittent suction should pt becomes bloated or vomits. JERRY Dangelo notified. Bariatric surgeon Mandeep Garza notified. per Dr. Garza, to monitor and should pt get bloated or vomits to place NG tube back in.
[2022-04-05] MEDS: traZODone HCL 50 MG TABLET PO (20:55)
[2022-04-05] MEDS: risperiDONE 0.5 MG TABLET PO (20:56)
[2022-04-06] VITALS (7 sets, daily range): BP systolic 138–155; BP diastolic 84–101; PULSE 59–72; RESP 14–18; TEMP 36.1–36.7; O2SAT 94–100
[2022-04-06] MEDS: Heparin Sodium,Porcine 5,000 UNIT/ML VIAL 5000 UNIT SUBCUT ×2 (01:10→12:34)
[2022-04-06] MEDS: Dextrose 5 % and Lactated Ring 1,000 ML 125 ML IVCONT ×3 (01:19→19:29)
[2022-04-06 06:15] LABS: MANUAL DIFF FLAG NO
[2022-04-06 06:21] LABS: Basophils Percent Auto 0.7 % (0-2); Eosinophils Absolute Auto 0.1 X10*3/uL (0.0-0.4); Hematocrit 32.7 % (37.0-47.0); Hemoglobin 10.4 g/dl (12.0-16.0); Imm Gran Abs Auto 0.01 X10*3/uL (0.00-0.03); Imm Gran Pct Auto 0.2 % (0.0-0.4); Lymphocytes Absolute Auto 2.4 X10*3/uL (1.2-4.9); Lymphocytes Percent Auto 39.8 % (20-40); Mean Corpuscular HGB Conc 31.8 g/dl (31.0-35.0); Mean Corpuscular Hemoglobin 29.3 pg (27.0-33.0); Mean Corpuscular Volume 92.1 fL (80.0-98.0); Mean Platelet Volume 11.2 fL (9.4-12.3); Monocytes Absolute Auto 0.4 X10*3/uL (0.1-1.2); Monocytes Percent Auto 6.4 % (2-11); Neutrophils Absolute Auto 3.1 x10*3/uL (2.0-8.3); Neutrophils Percent Auto 50.9 % (45-73); Platelet Count 198 X10*3/uL (160-400); Red Blood Count 3.55 X10*6/uL (4.20-5.50); Red Cell Distribution Width 12.8 % (11.0-16.0); White Blood Count 6.1 X10*3/uL (4.8-10.8)
[2022-04-06 06:50] LABS: Anion Gap 11 (12-20); Blood Urea Nitrogen 14 mg/dL (9-16); Calcium 8.3 mg/dL (8.4-10.2); Carbon Dioxide 31 mmol/L (22-29); Chloride 105 mmol/L (96-108); Creatinine Clr Calc Pharmacy 87.7; Estimated Glomerular Filt Rate > 60; Glucose Random 96 mg/dL (60-115); Potassium 2.6 mmol/L (3.3-5.1); Sodium 144 mmol/L (135-145)
[2022-04-06 08:44] LABS: Anion Gap 11 (12-20); Blood Urea Nitrogen 14 mg/dL (9-16); Calcium 8.5 mg/dL (8.4-10.2); Carbon Dioxide 32 mmol/L (22-29); Chloride 105 mmol/L (96-108); Creatinine Clr Calc Pharmacy 84.8; Estimated Glomerular Filt Rate > 60; Glucose Random 98 mg/dL (60-115); Potassium 2.9 mmol/L (3.3-5.1); Sodium 145 mmol/L (135-145)
[2022-04-06] MEDS: risperiDONE 0.5 MG TABLET PO ×2 (10:41→20:24)
[2022-04-06] MEDS: amLODIPine Besylate 5 MG TABLET PO (10:41)
[2022-04-06] MEDS: FLUoxetine HCl 10 MG CAPSULE PO (10:41)
--- NOTE | 2022-04-06 11:28 | P.PNGS_ITS ---
Subjective Subjective Date of Service: 04/06/22 Patient reports: feels better Interval history: Patient is seen in coverage for Dr. Monsivais Patient is seen with the help of automotive parts interpreter Amber. Patient's daughters at the bedside in speaks only Albanian. Per the daughter and the patient, the patient is doing better. She denies any nausea or vomiting. Nursing staff reports the patient had smears of stool in her incontinence garment overnight. There is no witnessed flatus or additional bowel movement but the patient is not having any apparent nausea, bloating or vomiting. The patient removed her NG yesterday. Physical Exam Vital Signs: Vital Signs: Last Vital Signs Temp 98.1 F 04/06/22 08:00 Pulse 60 04/06/22 08:00 Resp 18 04/06/22 08:00 BP 155/101 H 04/06/22 08:00 Pulse Ox 99 04/06/22 08:00 O2 Del Method 04/06/22 08:00 BMI result Body Mass Index 18.7 On exam the patient is nontoxic She has no respiratory distress Her abdomen is flat with no distension, tenderness, tympany or peritoneal irritation to percussion Objective Data Active Medications Amlodipine Besylate (Amlodipine Besylate 5 Mg Tablet) 5 mg PO DAILY [facility]; Protocol Last Admin: 04/06/22 10:41 Dose: 5 mg Documented By: PARKER Fluoxetine HCl (Fluoxetine Hcl 10 Mg Capsule) 10 mg PO DAILY [facility] Last Admin: 04/06/22 10:41 Dose: 10 mg Documented By: PARKER Heparin Sodium (Porcine) (Heparin Sodium,Porcine 5,000 Unit/Ml Vial) 5,000 unit SUBCUT Q12H [facility] Last Admin: 04/06/22 01:10 Dose: 5,000 unit Documented By: CHUY Hydromorphone HCl (Hydromorphone Hcl 0.5 Mg/0.5 Ml Syringe) 0.5 mg IVPUSH Q3H PRN; Protocol PRN Reason: Pain, Severe (Pain Scale 7-10) Dextrose/Lactated Ringer's (D5lr) 1,000 mls @ 125 mls/hr IVCONT .Q8H [facility] Last Admin: 04/06/22 10:40 Dose: 125 mls/hr Documented By: PARKER Ondansetron HCl (Ondansetron Hcl 4 Mg/2 Ml Vial) 4 mg IVPUSH QID PRN PRN Reason: Nausea Pharmacy Consult (Consult Rx Perform Med Rec) 1 each MISCELLANE ONCE PRN PRN Reason: Consult order Risperidone (Risperidone 0.5 Mg Tablet) 0.5 mg PO BID [facility] Last Admin: 04/06/22 10:41 Dose: 0.5 mg Documented By: PARKER Sodium Chloride (0.9 % Sodium Chloride Flush 3 Ml Syringe) 3 ml IVFLUSH QSHIFT [facility] Last Admin: 04/06/22 10:41 Dose: Not Given Documented By: PARKER Non-Admin Reason: IV Running Trazodone HCl (Trazodone Hcl 50 Mg Tablet) 50 mg PO BEDTIME [facility] Last Admin: 04/05/22 20:55 Dose: 50 mg Documented By: CHUY Labs 04/06/22 05:30 04/06/22 07:48 Labs: Laboratory Results - last 24 hr 04/06/22 04/06/22 04/06/22 05:30 05:30 07:48 MCV 92.1 MCH 29.3 MCHC 31.8 RDW 12.8 Plt Count 198 MPV 11.2 Immature Gran % (Auto) 0.2 Neut % (Auto) 50.9 Lymph % (Auto) 39.8 [place] % (Auto) 6.4 Eos % (Auto) 2.0 Baso % (Auto) 0.7 Lymph # (Auto) 2.4 [place] # (Auto) 0.4 Eos # (Auto) 0.1 Baso # (Auto) 0.0 Abs Immat Gran (auto) 0.01 Absolute Neuts (auto) 3.1 Absolute Nucleated RBC 0.000 Nucleated RBC % (auto) 0.0 Anion Gap 11 L 11 L Estim Creat Clear Calc 87.7 84.8 Estimated GFR > 60 > 60 Random Glucose 96 98 Calcium 8.3 L D 8.5 Procedures Date of Service Date of Service: 04/06/22 Progress Note: A&P Assessment and plan (1) SBO (small bowel obstruction): Status: Acute (2) Dementia: Status: Acute Plan Start clear liquids Old liquids if the patient becomes bloated or has evidence of dysphagia so, swallowing problem Dr. Monsivais to resume care on April 07 Time Spent With Patient Time: Total time managing care of this patient today ____ minutes. Quality Stroke Does the patient have a stroke diagnosis?: No VTE Prior VTE?: No VTE Risk Level:: Surgical - moderate VTE Device Contraindication: N/A - Device Ordered VTE Drug Contraindication: N/A - Med Ordered
--- NOTE | 2022-04-06 11:35 | P.PNIM_ITS ---
Subjective Subjective Date of Service: 04/06/22 Interval History: Seen in follow-up for small bowel obstruction Interval history: Patient is a limited historian 2/2 dementia. No overnight events. NG tube removed. Review of Systems Review of Systems: Yes Unobtainable due to mental condition and Unobtainable due to mental status Physical Exam Vital Signs: Vital Signs: Last Vital Signs Temp 98.1 F 04/06/22 08:00 Pulse 60 04/06/22 08:00 Resp 18 04/06/22 08:00 BP 155/101 H 04/06/22 08:00 Pulse Ox 99 04/06/22 08:00 O2 Del Method 04/06/22 08:00 BMI result Body Mass Index 18.7 Constitutional - Awake and Alert, No apparent distress Eyes - PERRLA, EOMI Cardiovascular - S1S2, RRR, No edema Respiratory - Normal lung expansion, Normal respiratory effort, No respiratory distress, CTA bilaterally Gastrointestinal - NT / ND; +BS; No rebound or guarding Extremities - no calf tenderness bilaterally, no swelling Skin - Warm/Dry Neurological - Alert & disoriented Objective Data Active Medications Amlodipine Besylate (Amlodipine Besylate 5 Mg Tablet) 5 mg PO DAILY [facility]; Protocol Last Admin: 04/06/22 10:41 Dose: 5 mg Documented By: PARKER Fluoxetine HCl (Fluoxetine Hcl 10 Mg Capsule) 10 mg PO DAILY [facility] Last Admin: 04/06/22 10:41 Dose: 10 mg Documented By: PARKER Heparin Sodium (Porcine) (Heparin Sodium,Porcine 5,000 Unit/Ml Vial) 5,000 unit SUBCUT Q12H [facility] Last Admin: 04/06/22 01:10 Dose: 5,000 unit Documented By: CHUY Hydromorphone HCl (Hydromorphone Hcl 0.5 Mg/0.5 Ml Syringe) 0.5 mg IVPUSH Q3H PRN; Protocol PRN Reason: Pain, Severe (Pain Scale 7-10) Dextrose/Lactated Ringer's (D5lr) 1,000 mls @ 125 mls/hr IVCONT .Q8H [facility] Last Admin: 04/06/22 10:40 Dose: 125 mls/hr Documented By: PARKER Ondansetron HCl (Ondansetron Hcl 4 Mg/2 Ml Vial) 4 mg IVPUSH QID PRN PRN Reason: Nausea Pharmacy Consult (Consult Rx Perform Med Rec) 1 each MISCELLANE ONCE PRN PRN Reason: Consult order Risperidone (Risperidone 0.5 Mg Tablet) 0.5 mg PO BID [facility] Last Admin: 04/06/22 10:41 Dose: 0.5 mg Documented By: PARKER Sodium Chloride (0.9 % Sodium Chloride Flush 3 Ml Syringe) 3 ml IVFLUSH QSHIFT [facility] Last Admin: 04/06/22 10:41 Dose: Not Given Documented By: PARKER Non-Admin Reason: IV Running Trazodone HCl (Trazodone Hcl 50 Mg Tablet) 50 mg PO BEDTIME [facility] Last Admin: 04/05/22 20:55 Dose: 50 mg Documented By: CHUY Labs 04/06/22 05:30 04/06/22 07:48 Labs: Laboratory Results - last 24 hr 04/06/22 04/06/22 04/06/22 05:30 05:30 07:48 MCV 92.1 MCH 29.3 MCHC 31.8 RDW 12.8 Plt Count 198 MPV 11.2 Immature Gran % (Auto) 0.2 Neut % (Auto) 50.9 Lymph % (Auto) 39.8 [place] % (Auto) 6.4 Eos % (Auto) 2.0 Baso % (Auto) 0.7 Lymph # (Auto) 2.4 [place] # (Auto) 0.4 Eos # (Auto) 0.1 Baso # (Auto) 0.0 Abs Immat Gran (auto) 0.01 Absolute Neuts (auto) 3.1 Absolute Nucleated RBC 0.000 Nucleated RBC % (auto) 0.0 Anion Gap 11 L 11 L Estim Creat Clear Calc 87.7 84.8 Estimated GFR > 60 > 60 Random Glucose 96 98 Calcium 8.3 L D 8.5 Assessment and Plan (1) SBO (small bowel obstruction): Status: Acute Plan Pt is a 56-year-old female with a PMH significant for 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 Hospitalist cons ult for medical management #HTN- reasonably controlled -Continue amlodipine, hold hydrochlorothiazide. Consider resuming once diet advanced -Monitor BP #Hypokalemia- likely r/t NPO status -Replete with 40meq PO -Follow BMP #Mood disorder/dementia -Continue fluoxetine, risperidone #SBO -Plan as per Surgery team -Advance to clears per surgery -Leukocytosis resolved Thank you for allowing us to participate in the care of this pt. We will follow at this time. Please contact us if there are any acute concerns or questions. Time Spent With Patient Time: Total time managing care of this patient today ____ minutes. Quality Stroke Does the patient have a stroke diagnosis?: No VTE Prior VTE?: No VTE Risk Level:: Surgical - moderate VTE Device Contraindication: N/A - Device Ordered VTE Drug Contraindication: N/A - Med Ordered
[2022-04-06] MEDS: Potassium Chloride Packet 20 MEQ PACKET 40 MEQ PO (12:34)
[2022-04-06] MEDS: traZODone HCL 50 MG TABLET PO (20:24)
[2022-04-07] VITALS (7 sets, daily range): BP systolic 134–161; BP diastolic 82–102; PULSE 57–76; RESP 15–20; TEMP 36.1–37.2; O2SAT 97–100
[2022-04-07] MEDS: Heparin Sodium,Porcine 5,000 UNIT/ML VIAL 5000 UNIT SUBCUT ×2 (01:21→11:42)
[2022-04-07] MEDS: Dextrose 5 % and Lactated Ring 1,000 ML 125 ML IVCONT ×2 (02:52→11:39)
[2022-04-07 08:02] LABS: Anion Gap 8 (12-20); Blood Urea Nitrogen 9 mg/dL (9-16); Carbon Dioxide 29 mmol/L (22-29); Chloride 105 mmol/L (96-108); Creatinine Clr Calc Pharmacy 94.1; Estimated Glomerular Filt Rate > 60; Glucose Random 99 mg/dL (60-115); Magnesium 1.6 mg/dL (1.6-2.6); Potassium 3.3 mmol/L (3.3-5.1); Sodium 139 mmol/L (135-145)
[2022-04-07] MEDS: amLODIPine Besylate 5 MG TABLET PO (08:11)
[2022-04-07] MEDS: risperiDONE 0.5 MG TABLET PO ×2 (08:11→20:28)
[2022-04-07] MEDS: FLUoxetine HCl 10 MG CAPSULE PO (08:11)
[2022-04-07] MEDS: Potassium Chloride Packet 20 MEQ PACKET 40 MEQ PO (08:12)
--- NOTE | 2022-04-07 10:26 | PM.PNGS ---
Subjective Subjective Date of Service: 04/07/22 Patient reports: no new complaints, tolerating liquids well, flatus and bowel movement Physical Exam Vital Signs: Vital Signs: Last Vital Signs Temp 97.0 F 04/07/22 07:26 Pulse 57 04/07/22 07:26 Resp 20 04/07/22 07:26 BP 161/99 H 04/07/22 07:26 Pulse Ox 100 04/07/22 07:26 O2 Del Method 04/07/22 07:26 BMI result Body Mass Index 18.7 Const: Other: Open eyes, answering simple questions, sleepy HEENT: Head: Yes normocephalic and Yes atraumatic Resp: Other: Breathing comfortably on room air, no respiratory distress, no wheezing GI: Other: Soft, nontender, no tympany to percussion, nondistended Skin: General skin exam: no rashes or lesions noted Objective Data Active Medications Amlodipine Besylate (Amlodipine Besylate 5 Mg Tablet) 5 mg PO DAILY [facility]; Protocol Last Admin: 04/07/22 08:11 Dose: 5 mg Documented By: SHOSHANA Fluoxetine HCl (Fluoxetine Hcl 10 Mg Capsule) 10 mg PO DAILY [facility] Last Admin: 04/07/22 08:11 Dose: 10 mg Documented By: SHOSHANA Heparin Sodium (Porcine) (Heparin Sodium,Porcine 5,000 Unit/Ml Vial) 5,000 unit SUBCUT Q12H [facility] Last Admin: 04/07/22 01:21 Dose: 5,000 unit Documented By: PENNY Hydromorphone HCl (Hydromorphone Hcl 0.5 Mg/0.5 Ml Syringe) 0.5 mg IVPUSH Q3H PRN; Protocol PRN Reason: Pain, Severe (Pain Scale 7-10) Dextrose/Lactated Ringer's (D5lr) 1,000 mls @ 125 mls/hr IVCONT .Q8H [facility] Last Admin: 04/07/22 02:52 Dose: 125 mls/hr Documented By: PENNY Ondansetron HCl (Ondansetron Hcl 4 Mg/2 Ml Vial) 4 mg IVPUSH QID PRN PRN Reason: Nausea Pharmacy Consult (Consult Rx Perform Med Rec) 1 each MISCELLANE ONCE PRN PRN Reason: Consult order Risperidone (Risperidone 0.5 Mg Tablet) 0.5 mg PO BID [facility] Last Admin: 04/07/22 08:11 Dose: 0.5 mg Documented By: SHOSHANA Sodium Chloride (0.9 % Sodium Chloride Flush 3 Ml Syringe) 3 ml IVFLUSH QSHIFT [facility] Last Admin: 04/07/22 08:15 Dose: Not Given Documented By: SHOSHANA Non-Admin Reason: IV Running Trazodone HCl (Trazodone Hcl 50 Mg Tablet) 50 mg PO BEDTIME [facility] Last Admin: 04/06/22 20:24 Dose: 50 mg Documented By: PENNY Labs 04/06/22 05:30 04/07/22 06:35 Labs: Laboratory Results - last 24 hr 04/07/22 06:35 Anion Gap 8 L Estim Creat Clear Calc 94.1 Estimated GFR > 60 Random Glucose 99 Calcium 8.0 L Magnesium 1.6 Procedures Date of Service Date of Service: 04/07/22 Progress Note: A&P Assessment and plan (1) SBO (small bowel obstruction): Status: Acute (2) Dementia: Status: Acute Plan Overall patient is improved with a soft abdomen, nontender to palpation. Overall she seems improved with resolution of small-bowel obstruction. NG tube is now out and she is tolerating a clear liquid. I will advance to a full liquid diet and monitor patient's tolerance. Time Spent With Patient Time: Total time managing care of this patient today ____ minutes. Quality Stroke Does the patient have a stroke diagnosis?: No VTE Prior VTE?: No VTE Risk Level:: Surgical - moderate VTE Device Contraindication: N/A - Device Ordered VTE Drug Contraindication: N/A - Med Ordered
--- NOTE | 2022-04-07 10:36 | MHC.CLN ---
F/U PT IS UNDER WT FOR HT CURRENTLY C/L DIET-75% X 1 MEAL WILL START ENSURE CLEAR TID TO PROVIDE 720KCALS, 24G PROTEIN WHILE ON CLEAR LIQUID DIET WHEN DIET ADVANCES; RECOMMEND SWITCHING TO ENSURE PLUS HIGH PROTEIN BID TO INCREASE KCALS SUPP PROVIDES 700KCALS, 40G PROTEIN MONITOR PO INTAKE CLOSELY
--- NOTE | 2022-04-07 12:48 | HO.PM.IMPN ---
Subjective Subjective Date of Service: 04/07/22 Interval History: Seen in follow-up for small bowel obstruction Interval history: Patient is a limited historian 2/2 dementia. No overnight events. NG tube removed. Hypokalemia resolved, K low normal at 3.3 this morning. BPs stable Review of Systems Review of Systems: Yes Unobtainable due to mental condition and Unobtainable due to mental status Physical Exam Vital Signs: Vital Signs: Last Vital Signs Temp 98.3 F 04/07/22 11:16 Pulse 67 04/07/22 11:16 Resp 20 04/07/22 11:16 BP 160/98 H 04/07/22 11:16 Pulse Ox 99 04/07/22 11:16 O2 Del Method 04/07/22 11:16 BMI result Body Mass Index 18.7 Constitutional - Awake and Alert, No apparent distress Eyes - PERRLA, EOMI Cardiovascular - S1S2, RRR, No edema Respiratory - Normal lung expansion, Normal respiratory effort, No respiratory distress, CTA bilaterally Gastrointestinal - NT / ND; +BS; No rebound or guarding Extremities - no calf tenderness bilaterally, no swelling Skin - Warm/Dry Neurological - Alert & disoriented Objective Data Active Medications Amlodipine Besylate (Amlodipine Besylate 5 Mg Tablet) 5 mg PO DAILY [facility]; Protocol Last Admin: 04/07/22 08:11 Dose: 5 mg Documented By: SHOSHANA Fluoxetine HCl (Fluoxetine Hcl 10 Mg Capsule) 10 mg PO DAILY [facility] Last Admin: 04/07/22 08:11 Dose: 10 mg Documented By: SHOSHANA Heparin Sodium (Porcine) (Heparin Sodium,Porcine 5,000 Unit/Ml Vial) 5,000 unit SUBCUT Q12H [facility] Last Admin: 04/07/22 11:42 Dose: 5,000 unit Documented By: SHOSHANA Hydromorphone HCl (Hydromorphone Hcl 0.5 Mg/0.5 Ml Syringe) 0.5 mg IVPUSH Q3H PRN; Protocol PRN Reason: Pain, Severe (Pain Scale 7-10) Ondansetron HCl (Ondansetron Hcl 4 Mg/2 Ml Vial) 4 mg IVPUSH QID PRN PRN Reason: Nausea Pharmacy Consult (Consult Rx Perform Med Rec) 1 each MISCELLANE ONCE PRN PRN Reason: Consult order Risperidone (Risperidone 0.5 Mg Tablet) 0.5 mg PO BID [facility] Last Admin: 04/07/22 08:11 Dose: 0.5 mg Documented By: SHOSHANA Sodium Chloride (0.9 % Sodium Chloride Flush 3 Ml Syringe) 3 ml IVFLUSH QSHIFT [facility] Last Admin: 04/07/22 08:15 Dose: Not Given Documented By: SHOSHANA Non-Admin Reason: IV Running Trazodone HCl (Trazodone Hcl 50 Mg Tablet) 50 mg PO BEDTIME [facility] Last Admin: 04/06/22 20:24 Dose: 50 mg Documented By: PENNY Labs 04/06/22 05:30 04/07/22 06:35 Labs: Laboratory Results - last 24 hr 04/07/22 06:35 Anion Gap 8 L Estim Creat Clear Calc 94.1 Estimated GFR > 60 Random Glucose 99 Calcium 8.0 L Magnesium 1.6 Assessment and Plan (1) SBO (small bowel obstruction): Status: Acute Plan Pt is a 56-year-old female with a PMH significant for 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 Hospitalist consult for medical management #HTN- reasonably controlled -Increase amlodipine to 10mg. Would continue holding HCTZ in setting of hypokalemia which was also present on admission -Monitor BP #Hypokalemia- resolved -K low normal this am at 3.3 -Addl 40meq KCl Po given to support K. Will likely remain stable with advancement of diet -Continue holding hctz -Follow BMP #Mood disorder/dementia -Continue fluoxetine, risperidone #SBO -Plan as per Surgery team Thank you for allowing me to participate in this consult. Signing off at this time. Please do not hesitate to call for further questions. Time Spent With Patient Time: Total time managing care of this patient today ____ minutes. Quality Stroke Does the patient have a stroke diagnosis?: No VTE Prior VTE?: No VTE Risk Level:: Surgical - moderate VTE Device Contraindication: N/A - Device Ordered VTE Drug Contraindication: N/A - Med Ordered
--- NOTE | 2022-04-07 15:31 | MHC.CM.PN ---
per rounds pt not ready for dc plan [facility] home witH channel account manager and vna
[2022-04-07] MEDS: 0.9 % Sodium Chloride Flush 3 ML SYRINGE IVFLUSH (20:30)
[2022-04-07] MEDS: traZODone HCL 50 MG TABLET PO (20:30)
[2022-04-08] VITALS (7 sets, daily range): BP systolic 133–162; BP diastolic 83–94; PULSE 62–104; RESP 16–20; TEMP 36.3–37.6; O2SAT 96–100
[2022-04-08] MEDS: Heparin Sodium,Porcine 5,000 UNIT/ML VIAL 5000 UNIT SUBCUT ×2 (01:28→14:15)
--- NOTE | 2022-04-08 09:05 | P.CDIC_ITS ---
CDI Concurrent Query Documentation Clarification: PHYSICIAN'S DOCUMENTATION REQUEST Date of Query: 04/08/22905 Patient Name: Shalonda Murguia Admit Date: 04/04/22 Dear Doctor, A review of the medical record indicates additional documentation may be needed. Please review below and update the documentation accordingly. Clinical Indicators: Risk Factors/Clinical Indicators/Treatments Surgery notes - SBO, N/V/abdominal distention, diarrhea. Ct 2/2 - Multiple dilated loops of small bowel extending to the ileocolic valve, a descrete transition point is not visualized. These findings concerning for SBO. Based on the above, could you clarify in the Progress Notes the appropriate diagnosis, if significant, that supports the above abnormalities and additional evaluation, monitoring, and/or treatment rendered: * Small bowel obstruction, complete * Small bowel obstruction, partial * Small bowel obstruction, incomplete * Other (please specify) * Unable to determine Use of terms such as suspected, likely, concern for, or probable (associated with a specific diagnosis that is being evaluated, monitored, or treated as if it exists) are acceptable and can be coded in the inpatient setting, when documented at the time of discharge. Thank you, Sujata Oscar [facility], CDIS Extension: [phone] Please use your independent medical judgment in providing your response. THIS QUERY IS PART OF THE PERMANENT MEDICAL RECORD Provider Response: Other Other Diagnosis: Partial small bowel obstruction
--- NOTE | 2022-04-08 09:15 | P.CDIC_ITS ---
CDI Concurrent Query Documentation Clarification: PHYSICIAN'S DOCUMENTATION REQUEST Date of Query: 04/08/22 0915 Patient Name: Shalonda Murguia Admit Date: 04/04/22 Dear Doctor, A review of the medical record indicates additional documentation may be needed. Please review below and update the documentation accordingly. Risk Factors/Clinical Indicators/Treatments Nutrition notes 2/3 - Patient is underweight with BMI 18.7 Prolong catabolic illness, monitor closely. Recommend adding Ensure to promote KCALS. If possible, please provide an associated diagnosis related to the abnormal BMI, such as: For a BMI <= 19: * Underweight * Weight loss * Anorexia * Other * Unable to determine Use of terms such as suspected, likely, concern for, or probable (associated with a specific diagnosis that is being evaluated, monitored, or treated as if it exists) are acceptable and can be coded in the inpatient setting, when documented at the time of discharge. Thank you, Sujata Oscar [facility], CDIS Extension: [phone] Please use your independent medical judgment in providing your response. THIS QUERY IS PART OF THE PERMANENT MEDICAL RECORD Provider Response: Other Other Diagnosis: Underweight
[2022-04-08] MEDS: FLUoxetine HCl 10 MG CAPSULE PO (09:24)
[2022-04-08] MEDS: amLODIPine Besylate 10 MG TABLET PO (09:24)
[2022-04-08] MEDS: risperiDONE 0.5 MG TABLET PO ×2 (09:24→20:00)
[2022-04-08] MEDS: 0.9 % Sodium Chloride Flush 3 ML SYRINGE IVFLUSH ×3 (09:24→20:00)
--- NOTE | 2022-04-08 11:59 | P.PNGS_ITS ---
Subjective Subjective Date of Service: 04/08/22 Interval history: Patient tolerating the full liquid diet without nausea or vomiting. Denies abdominal pain Physical Exam Vital Signs: Vital Signs: Last Vital Signs Temp 97.4 F 04/08/22 11:01 Pulse 70 04/08/22 11:01 Resp 20 04/08/22 11:01 BP 162/85 H 04/08/22 11:01 Pulse Ox 100 04/08/22 11:01 O2 Del Method 04/08/22 11:01 BMI result Body Mass Index 18.7 Const: Other: Open eyes, answering simple questions, sleepy HEENT: Head: Yes normocephalic and Yes atraumatic Resp: Other: Breathing comfortably on room air, no respiratory distress, no wheezing GI: Other: Soft, nontender, no tympany to percussion, nondistended Skin: General skin exam: no rashes or lesions noted Objective Data Active Medications Amlodipine Besylate (Amlodipine Besylate 10 Mg Tablet) 10 mg PO DAILY [facility]; Protocol Last Admin: 04/08/22 09:24 Dose: 10 mg Documented By: SHOSHANA Fluoxetine HCl (Fluoxetine Hcl 10 Mg Capsule) 10 mg PO DAILY [facility] Last Admin: 04/08/22 09:24 Dose: 10 mg Documented By: SHOSHANA Heparin Sodium (Porcine) (Heparin Sodium,Porcine 5,000 Unit/Ml Vial) 5,000 unit SUBCUT Q12H [facility] Last Admin: 04/08/22 01:28 Dose: 5,000 unit Documented By: CARRIE Hydromorphone HCl (Hydromorphone Hcl 0.5 Mg/0.5 Ml Syringe) 0.5 mg IVPUSH Q3H PRN; Protocol PRN Reason: Pain, Severe (Pain Scale 7-10) Ondansetron HCl (Ondansetron Hcl 4 Mg/2 Ml Vial) 4 mg IVPUSH QID PRN PRN Reason: Nausea Pharmacy Consult (Consult Rx Perform Med Rec) 1 each MISCELLANE ONCE PRN PRN Reason: Consult order Risperidone (Risperidone 0.5 Mg Tablet) 0.5 mg PO BID [facility] Last Admin: 04/08/22 09:24 Dose: 0.5 mg Documented By: SHOSHANA Sodium Chloride (0.9 % Sodium Chloride Flush 3 Ml Syringe) 3 ml IVFLUSH QSHIFT [facility] Last Admin: 04/08/22 09:24 Dose: 3 ml Documented By: SHOSHANA Trazodone HCl (Trazodone Hcl 50 Mg Tablet) 50 mg PO BEDTIME [facility] Last Admin: 04/07/22 20:30 Dose: 50 mg Documented By: CARRIE Labs 04/06/22 05:30 04/07/22 06:35 Procedures Date of Service Date of Service: 04/08/22 Progress Note: A&P Assessment and plan (1) SBO (small bowel obstruction): Status: Acute (2) Dementia: Status: Acute Plan Patient seems improved, tolerating her full liquid diet without nausea or vomiting. Abdominal examination reveals her abdomen to be soft and nondistended with no evidence of obstruction. Will advance to regular diet and if well tolerated anticipate discharge tomorrow. Time Spent With Patient Time: Total time managing care of this patient today ____ minutes. Quality Stroke Does the patient have a stroke diagnosis?: No VTE Prior VTE?: No VTE Risk Level:: Surgical - moderate VTE Device Contraindication: N/A - Device Ordered VTE Drug Contraindication: N/A - Med Ordered
[2022-04-08] MEDS: traZODone HCL 50 MG TABLET PO (20:00)
[2022-04-09] VITALS (7 sets, daily range): BP systolic 104–140; BP diastolic 56–86; PULSE 70–84; RESP 14–20; TEMP 36.2–37.1; O2SAT 98–100
[2022-04-09] MEDS: amLODIPine Besylate 10 MG TABLET PO (09:16)
[2022-04-09] MEDS: 0.9 % Sodium Chloride Flush 3 ML SYRINGE IVFLUSH (09:16)
[2022-04-09] MEDS: risperiDONE 0.5 MG TABLET PO ×2 (09:16→19:40)
[2022-04-09] MEDS: FLUoxetine HCl 10 MG CAPSULE PO (09:16)
--- NOTE | 2022-04-09 11:24 | MHC.CLN ---
F/U PO INTAKE 50% CONTINUES ON F/L DIET PT RECEIVING ENSURE TID TO INCREASE KCALS SUPP PROVIDES 1050KCALS, 60G PROTEIN NOTED: Patient seems improved, tolerating her full liquid diet without nausea or vomiting. Abdominal examination reveals her abdomen to be soft and nondistended with no evidence of obstruction. Will advance to regular diet and if well tolerated anticipate discharge tomorrow. MONITOR PO INTAKE CLOSELY
[2022-04-09] MEDS: Heparin Sodium,Porcine 5,000 UNIT/ML VIAL 5000 UNIT SUBCUT (12:56)
--- NOTE | 2022-04-09 13:26 | P.PNGS_ITS ---
Subjective Subjective Date of Service: 04/09/22 Interval history: Patient is smiling, appears comfortable. Discussed patient's progress with daughter and nail feeder. Patient is tolerating full liquid diet without nausea or vomiting. Patient normally takes a regular diet without restrictions. Physical Exam Vital Signs: Vital Signs: Last Vital Signs Temp 98.1 F 04/09/22 10:55 Pulse 79 04/09/22 10:55 Resp 20 04/09/22 10:55 BP 115/68 04/09/22 10:55 Pulse Ox 99 04/09/22 10:55 O2 Del Method 04/09/22 10:55 BMI result Body Mass Index 18.7 Const: General: comfortable and no acute distress Nutritional Appearance: well nourished Limitations: altered mental status Resp: Effort & Inspection: normal respiratory effort, no audible wheezes, no cough and no respiratory distress GI: Inspection: Yes normal to inspection Palpation (GI): Soft to palpation, nontender, no guarding and not rigid Percussion: Yes normal to percussion Auscultation: normal bowel sounds Skin: General skin exam: no rashes or lesions noted Objective Data Active Medications Amlodipine Besylate (Amlodipine Besylate 10 Mg Tablet) 10 mg PO DAILY [facility]; Protocol Last Admin: 04/09/22 09:16 Dose: 10 mg Documented By: TIM Fluoxetine HCl (Fluoxetine Hcl 10 Mg Capsule) 10 mg PO DAILY [facility] Last Admin: 04/09/22 09:16 Dose: 10 mg Documented By: TIM Heparin Sodium (Porcine) (Heparin Sodium,Porcine 5,000 Unit/Ml Vial) 5,000 unit SUBCUT Q12H [facility] Last Admin: 04/09/22 12:56 Dose: 5,000 unit Documented By: TIM Hydromorphone HCl (Hydromorphone Hcl 0.5 Mg/0.5 Ml Syringe) 0.5 mg IVPUSH Q3H PRN; Protocol PRN Reason: Pain, Severe (Pain Scale 7-10) Ondansetron HCl (Ondansetron Hcl 4 Mg/2 Ml Vial) 4 mg IVPUSH QID PRN PRN Reason: Nausea Pharmacy Consult (Consult Rx Perform Med Rec) 1 each MISCELLANE ONCE PRN PRN Reason: Consult order Risperidone (Risperidone 0.5 Mg Tablet) 0.5 mg PO BID [facility] Last Admin: 04/09/22 09:16 Dose: 0.5 mg Documented By: TIM Sodium Chloride (0.9 % Sodium Chloride Flush 3 Ml Syringe) 3 ml IVFLUSH QSHIFT [facility] Last Admin: 04/09/22 09:16 Dose: 3 ml Documented By: TIM Trazodone HCl (Trazodone Hcl 50 Mg Tablet) 50 mg PO BEDTIME [facility] Last Admin: 04/08/22 20:00 Dose: 50 mg Documented By: CARRIE Labs 04/06/22 05:30 04/07/22 06:35 Procedures Date of Service Date of Service: 04/09/22 Progress Note: A&P Assessment and plan (1) SBO (small bowel obstruction): Status: Acute (2) Dementia: Status: Acute Plan Patient is now much improved and tolerating full liquid diet. Will advance to regular diet and if well tolerated will plan on discharge tomorrow morning. Discussed with patient's daughter and she agrees with the plan. Time Spent With Patient Time: Total time managing care of this patient today ____ minutes. Quality Stroke Does the patient have a stroke diagnosis?: No VTE Prior VTE?: No VTE Risk Level:: Surgical - moderate VTE Device Contraindication: N/A - Device Ordered VTE Drug Contraindication: N/A - Med Ordered
[2022-04-09] MEDS: traZODone HCL 50 MG TABLET PO (19:40)
[2022-04-10] VITALS: BP 119/69; PULSE 75; RESP 14; TEMP 36.8; O2SAT 98
[2022-04-10] MEDS: Heparin Sodium,Porcine 5,000 UNIT/ML VIAL 5000 UNIT SUBCUT (01:13)
[2022-04-10 03:51] VITALS: BP 148/84; PULSE 73; RESP 15; TEMP 36.8; O2SAT 100
[2022-04-10 07:11] VITALS: BP 147/92; PULSE 74; RESP 20; TEMP 36.5; O2SAT 98
--- NOTE | 2022-04-10 08:07 | PM.PNGS ---
Subjective Subjective Date of Service: 04/10/22 Interval history: Patient tolerated solid food without nausea or vomiting. Patient is comfortable with no abdominal pain. Physical Exam Vital Signs: Vital Signs: Last Vital Signs Temp 97.7 F 04/10/22 07:11 Pulse 74 04/10/22 07:11 Resp 20 04/10/22 07:11 BP 147/92 H 04/10/22 07:11 Pulse Ox 98 04/10/22 07:11 O2 Del Method 04/10/22 07:11 BMI result Body Mass Index 18.7 Const: Other: Smiling, in no acute distress Resp: Other: No respiratory distress, breathing comfortably on room air. GI: Other: Soft, nondistended, nontender, non tympanitic to percussion. Skin: Other: Warm, dry, no rash Objective Data Active Medications Amlodipine Besylate (Amlodipine Besylate 10 Mg Tablet) 10 mg PO DAILY [facility]; Protocol Last Admin: 04/09/22 09:16 Dose: 10 mg Documented By: TIM Fluoxetine HCl (Fluoxetine Hcl 10 Mg Capsule) 10 mg PO DAILY [facility] Last Admin: 04/09/22 09:16 Dose: 10 mg Documented By: TIM Heparin Sodium (Porcine) (Heparin Sodium,Porcine 5,000 Unit/Ml Vial) 5,000 unit SUBCUT Q12H [facility] Last Admin: 04/10/22 01:13 Dose: 5,000 unit Documented By: PENNY Hydromorphone HCl (Hydromorphone Hcl 0.5 Mg/0.5 Ml Syringe) 0.5 mg IVPUSH Q3H PRN; Protocol PRN Reason: Pain, Severe (Pain Scale 7-10) Ondansetron HCl (Ondansetron Hcl 4 Mg/2 Ml Vial) 4 mg IVPUSH QID PRN PRN Reason: Nausea Pharmacy Consult (Consult Rx Perform Med Rec) 1 each MISCELLANE ONCE PRN PRN Reason: Consult order Risperidone (Risperidone 0.5 Mg Tablet) 0.5 mg PO BID [facility] Last Admin: 04/09/22 19:40 Dose: 0.5 mg Documented By: PENNY Sodium Chloride (0.9 % Sodium Chloride Flush 3 Ml Syringe) 3 ml IVFLUSH QSHIFT [facility] Last Admin: 04/10/22 01:02 Dose: Not Given Documented By: PENNY Non-Admin Reason: No Access Trazodone HCl (Trazodone Hcl 50 Mg Tablet) 50 mg PO BEDTIME [facility] Last Admin: 04/09/22 19:40 Dose: 50 mg Documented By: PENNY Labs 04/06/22 05:30 04/07/22 06:35 Procedures Date of Service Date of Service: 04/10/22 Progress Note: A&P Assessment and plan (1) SBO (small bowel obstruction): Status: Acute Plan Plan discharge to home today. Patient is cared for by her family with VNA visits. Will continue this upon discharge. Patient should continue with her usual diet. She will follow-up in the office in approximately 1 week and to call sooner for any return of symptoms. Time Spent With Patient Time: Total time managing care of this patient today ____ minutes. Quality Stroke Does the patient have a stroke diagnosis?: No VTE Prior VTE?: No VTE Risk Level:: Surgical - moderate VTE Device Contraindication: N/A - Device Ordered VTE Drug Contraindication: N/A - Med Ordered
--- NOTE | 2022-04-10 08:10 | P.F2F_ITS ---
Service Date Service Date: 04/10/22 Encounter Date of encounter: 04/10/22 Encounter: Patient's symptoms have resolved. Reasons for Services Signs and symptoms assessed: Patient previously had abdominal distension, nausea, vomiting with CT findings suggestive of small-bowel obstruction. Symptoms have now resolved with non operative measures including bowel rest and NG tube decompression. She is now tolerating a regular diet. Reason for longterm: neurological assessment, medication management and teach disease management Homebound: Leaving the home is medically contraindicated at this time without the asist of a device and/or another person due th the listed conditions above and below. Reason homebound: bedbound/chairbound and weakness related to hospital stay Certification: Based on the above findings, I certify that this patient is confined to the home and needs intermittent longterm care, physical therapy and/or speech therapy, or continues to need occupational therapy. The patient is under my care, and I have initiated the establishment of the plan of care. The patient will be followed by a physician who will periodically review the plan of care. Time Spent With Patient Time: Total time managing care of this patient today __20__ minutes.
--- NOTE | 2022-04-10 09:13 | P.DS_ITS ---
DS: Providers Provider Date of Service: 04/10/22 Date of admission: 04/04/22 00:24 Date of discharge: 04/10/22 Primary care physician: Camila Gambino MD Admitting clinician: Oren Monsivais Consults: 04/04/22 00:23 Consult to Hospitalist Routine Consulting Provider: Hospitalist Reason For Exam: SBO, med management Discharging clinician: Oren Monsivais DS: Diagnosis Discharge Diagnosis (1) SBO (small bowel obstruction): Start date: 04/04/22 Status: Acute DS: Summary Hospital Course Hospital Course: Shalonda Murguia is a 56 year old female presenting with complaints of nausea and vomiting, evaluated in the emergency department and determined to have a small bowel obstruction. Her past history is significant for dementia and she is non- verbal. She has a previous surgical history of an abdominal hernia repair in [place] complicated by mesh infection. 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 She was previously admitted to the surgical service in 2018 for small bowel obstruction and found to have a recurrent incisional hernia. She underwent hernia repair without mesh at that time. She returns today with abdominal distension, nausea, vomiting and diarrhea. CT abdomen without contrast revealed diffusely dilated small bowel with a large amount of stool in the rectum with surrounding inflammation. No definite transition point is identified. On examination the patient was noted to be distended mildly tender throughout the abdomen. Decision was made to admit the patient surgical service for bowel rest, nasogastric tube decompression, and IV hydration. A nasogastric tube was placed in the emergency department unfortunately during the night the patient pulled the tube out. The tube was replaced and clamping trials started. over the next 24 hours however the patient was much improved and the tube was subsequently removed. She began to pass gas in bowels over the weekend as well. Her abdomen remains soft and nondistended with no tenderness. By 04/07/2022 she was started on clear liquids and seemed to do well with this. S he was slowly advanced to a regular diet which is her normal diet by 04/10/2022. Over the next 24 hours she tolerated the regular diet without nausea, vomiting, fever or chills. Her abdominal exam reveals no tenderness. She is soft and nondistended. Patient is to be discharged to home on a regular diet. She will follow-up with her PCP and with my office in approximately 1 week. Her family should call sooner for any concerns. Her daughter reports that that her family cares for her at home as well as the VNA which will continue post discharge. Time spent discussing smoking cessation with patient: 3 to 10 minutes Status at Discharge Functional status at discharge: bed bound Overall status at discharge: patient is back to baseline Time Spent with Patient Time attestation: Total time managing care of this patient today __20__ minutes. Discharge coordination time: Less than 30 minutes Quality: Safe Use of Opioids Does Pt have an Active Cancer Diagnosis on the Problem List?: No Quality: Stroke Does the patient have a stroke diagnosis?: No Physical Exam Vital Signs: Vital Signs: Last Vital Signs Temp 97.7 F 04/10/22 07:11 Pulse 74 04/10/22 07:11 Resp 20 04/10/22 07:11 BP 147/92 H 04/10/22 07:11 Pulse Ox 98 04/10/22 07:11 O2 Del Method 04/10/22 07:11 BMI result Body Mass Index 18.7 Const: Other: Smiling, in no acute distress Resp: Other: No respiratory distress, breathing comfortably on room air. GI: Other: Soft, nondistended, nontender, non tympanitic to percussion. Skin: Other: Warm, dry, no rash Discharge Plan Discharge Anticipated Discharge Date/Time: 04/10/22 08:05 Patient Disposition: Home Health Service Discharge Diagnosis: Partial small bowel obstruction Referrals: Oren Monsivais MD [Physician] - 1 Week Camila Rouse MD [Primary Care Provider] - 1 Week (CALL AND SCHEDULE FOLLOW UP APPOINTMENT WITH PCP ) Discharge Medications: Continued trazodone 50 mg tablet 1 tab PO BEDTIME amlodipine 10 mg tablet 1 tab PO DAILY fluoxetine 10 mg capsule 1 cap PO DAILY hydrochlorothiazide 25 mg tablet 1 tab PO DAILY risperidone 0.5 mg tablet 1 tab PO BID Discharge Orders: Discharge Order (Routine); Ordered 04/10/22 Ordered By: Oren Monsivais Diet: Advance to usual diet Activity on Discharge: As tolerated Stand Alone Forms: Patient Portal Discharge page Care Plan Goals: Return to normal diet and activity Health Concerns: abdominal pain, nausea, vomiting Plan of Treatment: Bowel rest, IV hydration Assessment: Partial small bowel obstruction
--- NOTE | 2022-04-10 09:26 | MHC.CM.PN ---
Patient has been medically cleared for dc to home today, with services. A referral was made to Carly HARRIS, who has been made aware of today's dc (DC summary and face to face has been successfully faxed to Carly @ [phone] and uploaded into [employer]).
[2022-04-10] MEDS: FLUoxetine HCl 10 MG CAPSULE PO (09:43)
[2022-04-10] MEDS: risperiDONE 0.5 MG TABLET PO (09:43)
[2022-04-10] MEDS: amLODIPine Besylate 10 MG TABLET PO (09:43)
== END 2022-04-10 11:07 | disposition home health service (06) | DRG 247 ==
LOC: HO.ED 04-04 00:24 → HO.EDOVER 04-04 00:40 → HO.IMC 04-04 06:56
PROVIDERS: Physician Assistant; Surgery; Admitting Provider Surgery; Emergency Provider Emergency Medicine; PCP Internal Medicine; Visit Provider Surgery
DX: K56.600 Partial intestinal obstruction, unspecified as to cause (principal); F03.911 Unspecified dementia, unspecified severity, with agitation; R63.6 Underweight; E53.8 Deficiency of other specified B group vitamins; I10 Essential (primary) hypertension; E87.6 Hypokalemia; F39 Unspecified mood [affective] disorder; Z20.822 Contact with and (suspected) exposure to COVID-19; Z68.1 Body mass index [BMI] 19.9 or less, adult; Z87.891 Personal history of nicotine dependence; Z79.899 Other long term (current) drug therapy
CPT/HCPCS: 36415; 71045; 74176; 80048; 83735; 85025; 87635; 96361; 96374; 99285; J1643; J2060; J2405

== ENCOUNTER → 2022-05-08 13:07 | Outpatient (BNVA) | payer OTHER, SELFPAY | PROVIDERS: PCP Nurse Practitioner Family; Visit Provider Surgery | DX: K56.609 Unspecified intestinal obstruction, unspecified as to partial versus complete obstruction (principal) | CPT/HCPCS: 99212 ==

== ENCOUNTER 2022-08-03 23:22 | Inpatient (IN) | payer OTHER, SELFPAY ==
--- NOTE | ~2022-08-03 | XR_ITS ---
EXAMINATION: XR CHEST CLINICAL INFORMATION: Follow-up pneumonia COMPARISON: Previous chest x-ray most recent 08/07/2022 TECHNIQUE: Frontal view of the chest was obtained. FINDINGS: The cardiac silhouette is enlarged however this may be due to patient positioning/rotation to the right. There is bilateral central multilobar airspace disease. This appears improved from 08/07/2022, particularly in the left upper lung and right lung. No pleural effusion. No pneumothorax. Mild degenerative changes of the spine. XR/XR chest 1V IMPRESSION: Improving bilateral central airspace disease from 08/07/2022.
--- NOTE | ~2022-08-03 | XR_ITS ---
EXAMINATION: XR CHEST CLINICAL INFORMATION: Evaluation of internal jugular line in place COMPARISON: 08/04/2022 TECHNIQUE: Frontal view of the chest was obtained. FINDINGS: Patchy airspace disease seen on the left. There is mediastinal shift to the right due to patient's rotation. Newly placed infusion catheter projecting: The atriocaval junction. No evidence of pneumothorax. XR/XR chest 1V IMPRESSION: Well-positioned internal jugular line with the tip at the atriocaval junction and left lung pneumonia
--- NOTE | ~2022-08-03 | XR_ITS ---
EXAMINATION: XR CHEST CLINICAL INFORMATION: Hypoxic COMPARISON: 04/05/2022 TECHNIQUE: Frontal view of the chest was obtained. FINDINGS: Lung volumes are symmetric. There is patchy airspace opacity in the mid and basilar left lung, suspicious for pneumonia. No evidence of pneumothorax or significant pleural effusion. The cardiomediastinal contour is unremarkable. No acute osseous findings are seen. XR/XR chest 1V IMPRESSION: Patchy mid and basilar left lung opacity, suspicious for pneumonia. Radiographic followup after treatment/resolution of symptoms is recommended.
--- NOTE | ~2022-08-03 | XR_ITS ---
EXAMINATION: XR CHEST CLINICAL INFORMATION: Dyspnea and hypoxia COMPARISON: Previous chest x-ray most recent 08/04/2022 TECHNIQUE: Frontal view of the chest was obtained. FINDINGS: The cardiac and mediastinal contours are stable. There is worsening bilateral multilobar airspace disease. There are small bilateral pleural effusions. No pneumothorax. Mild degenerative changes of the spine. XR/XR chest 1V IMPRESSION: Worsening bilateral multilobar airspace disease and small bilateral pleural effusions. Differential would include pneumonia/ARDS and CHF.
[2022-08-03 23:30] VITALS: PULSE 84; PULSE 88; RESP 16; TEMP 34.8; O2SAT 84; O2SAT 89; O2SAT 90; BMI 16.4
--- NOTE | 2022-08-03 23:37 | ECG_ITS ---
Test Reason : sepsis Blood Pressure : / mmHG Vent. Rate : 070 BPM Atrial Rate : 070 BPM P-R Int : 190 ms QRS Dur : 176 ms QT Int : 460 ms P-R-T Axes : 084 -74 083 degrees QTc Int : 496 ms Normal sinus rhythm Right bundle branch block Left anterior fascicular block Bifascicular block Left ventricular hypertrophy with repolarization abnormality ( R in aVL ) Abnormal ECG When compared with ECG of 31-OCT-2019 06:02, T wave inversion no longer evident in Inferior leads Referred By: Nayely Clinton Electronically Signed By:Santi Jackson
[2022-08-03] MEDS: 0.9 % Sodium Chloride 2,000 ML 999 ML IVCONT (23:50)
[2022-08-04] VITALS (20 sets, daily range): BP systolic 76–148; BP diastolic 36–97; PULSE 58–79; RESP 13–20; TEMP 35–37.6; O2SAT 93–100
[2022-08-04] MEDS: Piperacillin Sodium/Tazobactam 3.375 GM in 0.9 % Sodium Chloride 50 ML IV (00:19)
[2022-08-04] MEDS: vancomycin HCL 1,250 MG in 0.9 % Sodium Chloride 250 ML 166.67 MG IV (00:20)
[2022-08-04 00:29] LABS: Basophils Absolute Auto 0.1 X10*3/uL (0.0-0.2); Basophils Percent Auto 0.5 % (0-2); Eosinophils Absolute Auto 0.1 X10*3/uL (0.0-0.4); Eosinophils Percent Auto 0.5 % (0-4); Hematocrit 36.1 % (37.0-47.0); Hemoglobin 11.7 g/dl (12.0-16.0); Imm Gran Abs Auto 0.04 X10*3/uL (0.00-0.03); Imm Gran Pct Auto 0.2 % (0.0-0.4); Lymphocytes Absolute Auto 0.5 X10*3/uL (1.2-4.9); MANUAL DIFF FLAG SCAN; Mean Corpuscular HGB Conc 32.4 g/dl (31.0-35.0); Mean Corpuscular Volume 92.6 fL (80.0-98.0); Mean Platelet Volume 11.4 fL (9.4-12.3); Monocytes Absolute Auto 0.5 X10*3/uL (0.1-1.2); Monocytes Percent Auto 3.1 % (2-11); Neutrophils Absolute Auto 15.5 x10*3/uL (2.0-8.3); Neutrophils Percent Auto 92.7 % (45-73); Platelet Count 174 X10*3/uL (160-400); Red Cell Distribution Width 12.8 % (11.0-16.0); SCAN SMEAR FLAG 1; White Blood Count 16.8 X10*3/uL (4.8-10.8)
[2022-08-04 00:31] LABS: SLIDE REVIEW VERIFIED
[2022-08-04 00:32] LABS: VBG Base Excess 13.4 mmol/L; VBG HCO3 38 mmol/L (22-26); VBG pCO2 47 mmHg; VBG pH 7.51 (7.32-7.43); VBG pO2 95 mmHg
[2022-08-04 00:42] LABS: Alanine Aminotransferase 120 U/L (0-31); Albumin Level 3.3 g/dL (3.5-5.0); Alkaline Phosphatase 141 U/L (39-117); Anion Gap 18 (12-20); Aspartate Amino Transferase 132 U/L (5-31); Bilirubin Direct 0.4 mg/dL (0.0-0.5); Bilirubin Total 1.6 mg/dL (0.0-1.0); Blood Urea Nitrogen 75 mg/dL (9-16); Calcium 10.4 mg/dL (8.4-10.2); Carbon Dioxide 31 mmol/L (22-29); Chloride 102 mmol/L (96-108); Estimated Glomerular Filt Rate > 60; Glucose Random 153 mg/dL (60-115); Lipase 22 U/L (8-78); Magnesium 2.4 mg/dL (1.6-2.6); Potassium 3.9 mmol/L (3.3-5.1); Sodium 147 mmol/L (135-145); Total Protein 7.2 g/dL (6.5-8.0)
[2022-08-04 00:44] LABS: Venous Blood Gas Refer to POC result
[2022-08-04 00:44] LABS: Lactic Acid 3.1 mmol/L (0.5-2.0)
[2022-08-04 00:48] LABS: Troponin-I High Sensitivity 5.3 ng/L (<3.5-17.0)
[2022-08-04 00:57] LABS: COVID-19 Test Negative (Negative); IDNOW Serial# 6674DD1D
[2022-08-04 01:15] LABS: TSH reflex Free T4 2.55 uIU/mL (0.32-4.0)
[2022-08-04 01:15] LABS: B Type Natriuretic Peptide 13 pg/mL (<100)
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
[2022-08-04 02:18] LABS: Color Urine Dark Yellow; Glucose Urine UA Negative (Negative); Leukocyte Esterase Urine Trace (Negative); Nitrite Urine Negative (Negative); PH 5.5 (5.0-9.0); Specific Gravity - Urine 1.025 (1.005-1.025); UMIC TRIGGER UACC YES; Urine Blood Negative (Negative); Urine Ketones Negative (Negative); Urine Protein Trace mg/dL (Neg-Trace)
--- NOTE | 2022-08-04 02:20 | PC.NURSE ---
med rec complete
[2022-08-04 02:21] LABS: Amphetamine Screen Urine Not Detected (Not Detect); Barbiturates, Urine Not Detected (Not Detect); Benzodiazepines Screen Urine Not Detected (Not Detect); Cannabinoid Screen Urine Not Detected (Not Detect); Cocaine Screen Urine Not Detected (Not Detect); Fentanyl, urine Not Detected (Not Detect); Opiate Screen Urine Not Detected (Not Detect); Phencyclidine Screen Urine Not Detected (Not Detect)
[2022-08-04 02:22] LABS: Appearance Urine Clear
[2022-08-04 02:24] LABS: Reflex Lactate? Lactic Acid Added
[2022-08-04 02:26] LABS: Bacteria Urine None Seen (None Seen); Hyaline Casts Urine >20 /LPF (0-2); RBC Urine 0-2 /HPF (0-2); Squamous Epithelial Cell Urine 0-2 /HPF (0-2); WBC Urine 0-5 /HPF (0-5)
[2022-08-04 02:37] LABS: Ammonia 28 umol/L (13-55)
--- NOTE | 2022-08-04 02:38 | PC.NURSE ---
skin turgor very poor, tenting multiple pressure wounds in varying stages on various parts of the body noted, photos taken by Dr Nayely Clinton pt unable to respond, unable to make needs known seems too make more eye contact when speaking to her in Urdu pt appears to be malnutritioned urine tea colored and concentrated, foul odor hypothermic at 94.7 rectal bear hugger applied to regulate temperature
--- NOTE | 2022-08-04 02:42 | PC.NURSE ---
temp sensing cath in place tolerated well
[2022-08-04 02:44] LABS: INTERNATIONAL NORM RATIO 1.2 (0.9-1.1); Prothrombin Time 14.1 SEC (10.0-13.1)
--- NOTE | 2022-08-04 02:45 | PC.NURSE ---
pt's [id number] found in pt's room taking pictures of monitor by TITI Nevarez made this nurse aware this nurse reported to charge nurse [id number] removed from room
--- NOTE | 2022-08-04 03:09 | PC.NURSE ---
pt's rectal temp 95.0 F bear hugger increased will CTM
--- NOTE | 2022-08-04 04:27 | PC.NURSE ---
low bp of 80/45 hospitalist aware
--- NOTE | 2022-08-04 04:36 | PC.NURSE ---
applied warm packets to pt pt repositioned to trendelenberg position 1L LR 999 mLs per MAR pt responding well to warm packets temp sensing temp (rectal) 97.2 F
--- NOTE | 2022-08-04 04:45 | PC.NURSE ---
per hospitalist to place orders for 2L LR to address pt's low bp
[2022-08-04] MEDS: Lactated Ringers 1,000 ML 999 ML IV ×3 (04:46→12:12)
[2022-08-04 05:04] LABS: ~Lactic Acid-LAB USE ONLY 0.9 mmol/L (0.5-2.0)
--- NOTE | 2022-08-04 05:45 | PC.NURSE ---
1L of LR infusion complete pt O2 NC to 3L -desating to 86% now at 94% pt bp remains low at 76/47 hospitalist aware (Dr Bazan) MD in ED aware (Dr Miller)
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
--- NOTE | 2022-08-04 06:50 | PC.NURSE ---
0634 and 0645 meds not given at this as meds are not verified yet
[2022-08-04 06:51] LABS: Hemoglobin 9.8 g/dl (12.0-16.0); Mean Corpuscular HGB Conc 32.7 g/dl (31.0-35.0); Mean Corpuscular Hemoglobin 30.5 pg (27.0-33.0); Mean Corpuscular Volume 93.5 fL (80.0-98.0); Mean Platelet Volume 11.7 fL (9.4-12.3); Platelet Count 155 X10*3/uL (160-400); Red Blood Count 3.21 X10*6/uL (4.20-5.50); Red Cell Distribution Width 12.8 % (11.0-16.0); White Blood Count 13.1 X10*3/uL (4.8-10.8)
[2022-08-04 07:17] LABS: Alanine Aminotransferase 73 U/L (0-31); Albumin Level 2.3 g/dL (3.5-5.0); Alkaline Phosphatase 93 U/L (39-117); Aspartate Amino Transferase 65 U/L (5-31); Bilirubin Total 1.3 mg/dL (0.0-1.0); Blood Urea Nitrogen 57 mg/dL (9-16); Creatinine Clr Calc Pharmacy 72.1; Estimated Glomerular Filt Rate > 60; Glucose Random 77 mg/dL (60-115); Total Protein 4.6 g/dL (6.5-8.0)
--- NOTE | 2022-08-04 07:23 | PHA.MEDREC ---
Pharmacy Consult ? Medication Reconciliation Pharmacy has completed the medication reconciliation. Reviewed med rec done by nursing
[2022-08-04 07:34] LABS: Anion Gap 12 (12-20); Calcium 8.4 mg/dL (8.4-10.2); Carbon Dioxide 27 mmol/L (22-29); Chloride 116 mmol/L (96-108); Sodium 152 mmol/L (135-145)
[2022-08-04 07:39] LABS: Band Neutrophils Percent 3 % (3-5); Eosinophils Absolute Manual 0.1 X10*3/uL (0.0-0.4); Eosinophils Percent Manual 1 % (0-4); Lymphocytes Absolute Manual 0.8 X10*3/uL (1.2-4.9); Lymphocytes Percent Manual 6 % (20-40); Neutrophils Absolute Manual 12.2 X10*3/uL (2.0-8.3); Neutrophils Percent Manual 90 % (45-73)
[2022-08-04 07:44] LABS: Large Platelet PRESENT; Platelet Estimate NORMAL (NORMAL); Platelet Morphology Comment NOTED; RBC Morphology NORMAL
[2022-08-04] MEDS: cefTRIAXone sodium 1 GM in 0.9 % Sodium Chloride 50 ML IV (08:11)
[2022-08-04] MEDS: Enoxaparin Sodium 40 MG/0.4 ML SYRINGE SUBCUT (08:12)
--- NOTE | 2022-08-04 08:15 | PC.NURSE ---
pt received in bed, sleeping. meds administered. BP noted to be SBP 83, fluids added. SBP 63. Charge nurse aware, making hospitalist aware. SBP now 84, will continue to monitor
[2022-08-04] MEDS: Azithromycin 500 MG in 0.9 % Sodium Chloride 250 ML 125 MG IV (09:19)
[2022-08-04] MEDS: 0.9 % Sodium Chloride 1,000 ML 125 ML IVCONT ×2 (10:10→14:46)
--- NOTE | 2022-08-04 10:11 | PC.NURSE ---
Dr Dodge places TLC to left neck. plan is to transfer patient to [facility] for ICU care.
[2022-08-04] MEDS: Norepinephrine Bitartrate/D5W 8 MG/250 ML PLAST..BAG 4.31 MG IV (10:40)
--- NOTE | 2022-08-04 11:02 | PC.NURSE ---
pt with Norepinephrine running at 0.05mcg/kg/min. MAP now 70. Report to ROMEO Serrato
--- NOTE | 2022-08-04 11:13 | PM.CCN ---
Critical Care Event Note Summary Date of Service: 08/04/22 Code activated: No Narrative: Patient seen and examined in the emergency room. Failure to thrive. Protein calorie malnutrition. Distributive shock requiring pressor support. At this time patient requires intensive care unit level of care, however no staffed intensive care unit beds available at this time. Discussed with Anamaria Sharp N.P. Critical Care Time (minutes): 0
[2022-08-04] MEDS: 0.9 % Sodium Chloride Flush 3 ML SYRINGE IVFLUSH (11:21)
[2022-08-04] MEDS: Albumin Human 25 % 100 ML IV ×4 (12:12→23:15)
--- NOTE | 2022-08-04 12:32 | PM.EVENT ---
Event Note Date of Service: 08/04/22 Event Note: 57-year-old female past medical history of dementia presents the hospital after visiting nurse found her to be sleeping on an air mattress that had no Shilpa it for several days and have multiple pressure ulcers found to have acute pneumonia Septic shock secondary to Community-acquired pneumonia Associated with hypoxia Initially on Rocephin and azithromycin, due to septic shock start vanco and zosyn Follow blood cx hypotension, secondary to septic shock clinically patient appears significantly dehydrated, with concentrated urine, and very dry mucosal membranes s/p started on Pressors in the ED due to SBP as low as 50. Seen and evaluated by ICU provider>rec albumin and continued IV fluids weaned off pressors with stable blood presusre continue IV fluids and albumin hypernatremia secondary to hypovolemia IV fluids Hypokalemia secondary to poor nutrition Transaminitis likely secondary to hypovolemia Pressure ulcers present on admission wound care consulted Mental health/dementia non verbal and non ambulatory for the last 6 months according to her son with whom she lives speech/swallow consult severe protein calorie malnutrition BMI 16.4 nutrition consult DVT prophylaxis with Lovenox Attending Dr. Saha Time Spent With Patient Time: Total time managing care of this patient today ____ minutes.
--- NOTE | 2022-08-04 13:00 | PC.NURSE ---
upon assessment of triple lumen central line noted pulsation and back flow of blood into line and iv tubing provider matias aware
[2022-08-04] MEDS: vancomycin HCL 1,000 MG in 0.9 % Sodium Chloride 250 ML 270 MG IV (16:42)
[2022-08-04 16:51] LABS: Anion Gap 12 (12-20); Blood Urea Nitrogen 38 mg/dL (9-16); Calcium 8.7 mg/dL (8.4-10.2); Carbon Dioxide 27 mmol/L (22-29); Chloride 118 mmol/L (96-108); Creatinine Clr Calc Pharmacy 78.2; Estimated Glomerular Filt Rate > 60; Glucose Random 78 mg/dL (60-115); Potassium 3.1 mmol/L (3.3-5.1); Sodium 154 mmol/L (135-145)
[2022-08-04] MEDS: Piperacillin Sodium/Tazobactam 4.5 GM in 0.9 % Sodium Chloride 100 ML IV ×2 (17:51→23:14)
--- NOTE | 2022-08-04 17:53 | PHA.PROG ---
Admission Date/Time: August 04, 2022 06:35 Indication: RESP Weight in k kg Serum Creatinine - Last 168 Hours 08/03/22 08/04/22 08/04/22 00:19 06:41 15:19 Creatinine 0.87 0.64 0.59 Estimated CrCl and GFR - Last 168 Hours 08/03/22 08/04/22 08/04/22 00:19 06:41 15:19 Estim Creat Clear Calc TNP 72.1 78.2 Estimated GFR > 60 > 60 > 60 Vancomycin Loading Dose: 1250 Current Vancomycin Dosing Regimen: 750 Q 12H Vancomycin Monitoring using AUC goal of 400 - 600 range with trough as surrogate marker: 498 Date and Time for next Vancomycin Level to be drawn: 07/05 @ 1700 Pharmacist Comments on Vancomycin Plan: Vancomycin dosing will take advantage of CR2 as a clinical decision support tool that uses Bayesian modeling to calculate individual patient's pharmacokinetic parameters and forecast the patient's drug concentration time course with the target goal AUC 24 range of 400 - 600 mg/L/hr.
[2022-08-04 19:54] LABS: Anion Gap 10 (12-20); Blood Urea Nitrogen 32 mg/dL (9-16); Calcium 8.5 mg/dL (8.4-10.2); Carbon Dioxide 28 mmol/L (22-29); Chloride 118 mmol/L (96-108); Creatinine Clr Calc Pharmacy 80.9; Estimated Glomerular Filt Rate > 60; Glucose Random 79 mg/dL (60-115); Potassium 2.9 mmol/L (3.3-5.1); Sodium 153 mmol/L (135-145)
[2022-08-05 03:25] VITALS: BP 141/80; PULSE 73; RESP 20; TEMP 36.7; O2SAT 94
[2022-08-05] MEDS: 0.9 % Sodium Chloride 1,000 ML 125 ML IVCONT ×2 (05:30→16:51)
[2022-08-05] MEDS: Piperacillin Sodium/Tazobactam 4.5 GM in 0.9 % Sodium Chloride 100 ML IV ×4 (05:32→22:25)
[2022-08-05] MEDS: cefTRIAXone sodium 1 GM in 0.9 % Sodium Chloride 50 ML IV (06:16)
[2022-08-05] MEDS: Enoxaparin Sodium 40 MG/0.4 ML SYRINGE SUBCUT (06:17)
[2022-08-05 06:54] LABS: MANUAL DIFF FLAG NO
[2022-08-05 07:00] LABS: Basophils Percent Auto 0.1 % (0-2); Eosinophils Percent Auto 0.3 % (0-4); Hematocrit 28.6 % (37.0-47.0); Hemoglobin 9.1 g/dl (12.0-16.0); Imm Gran Abs Auto 0.04 X10*3/uL (0.00-0.03); Imm Gran Pct Auto 0.4 % (0.0-0.4); Lymphocytes Absolute Auto 1.2 X10*3/uL (1.2-4.9); Lymphocytes Percent Auto 11.3 % (20-40); Mean Corpuscular HGB Conc 31.8 g/dl (31.0-35.0); Mean Corpuscular Hemoglobin 29.7 pg (27.0-33.0); Mean Corpuscular Volume 93.5 fL (80.0-98.0); Mean Platelet Volume 11.5 fL (9.4-12.3); Monocytes Absolute Auto 0.5 X10*3/uL (0.1-1.2); Neutrophils Absolute Auto 8.7 x10*3/uL (2.0-8.3); Neutrophils Percent Auto 82.9 % (45-73); Platelet Count 159 X10*3/uL (160-400); Red Blood Count 3.06 X10*6/uL (4.20-5.50); Red Cell Distribution Width 12.9 % (11.0-16.0); White Blood Count 10.4 X10*3/uL (4.8-10.8)
[2022-08-05 07:28] VITALS: BP 132/80; PULSE 70; RESP 20; TEMP 37.2; O2SAT 98
[2022-08-05 07:38] LABS: Anion Gap 11 (12-20); Blood Urea Nitrogen 24 mg/dL (9-16); Calcium 8.6 mg/dL (8.4-10.2); Carbon Dioxide 27 mmol/L (22-29); Chloride 118 mmol/L (96-108); Creatinine Clr Calc Pharmacy 78.2; Estimated Glomerular Filt Rate > 60; Glucose Random 77 mg/dL (60-115); Potassium 2.7 mmol/L (3.3-5.1); Sodium 153 mmol/L (135-145)
--- NOTE | 2022-08-05 08:12 | PC.NURSE ---
Pt tolerated iv fluids and meds well with CYU via juarez. juarez removed this AM per protocol @ 0630. Dressings C/D/I to L shoulder and hip. Allevyn applied to buttocks/coccyx area for p revention. Heels floated, pillow between knees. Air relief matress started. Pt turned and repositioned for comfort/skin Q2hrs and barrier cream applied to daija/buttock area 2/2 inc stool. L hand mildly swollen, no swelling at iv site. hand elevated on pillow.
[2022-08-05] MEDS: Potassium Chloride Packet 20 MEQ PACKET 40 MEQ PO (08:56)
[2022-08-05] MEDS: vancomycin HCL 750 MG in 0.9 % Sodium Chloride 250 ML 265 MG IV (09:06)
[2022-08-05 10:18] VITALS: BMI 16.4
--- NOTE | 2022-08-05 10:24 | MHC.CLN ---
RE: CONSULT PT IS SEVERELY MALNOURISHED PT WITH SEVERELY DEPLETED SUBCUTANEOUS FAT AND MUSCLE MASS WITH CHRONIC POOR PO INTAKE AND 10% SIGNIFICANT WT LOSS X 90DAYS WITH BMI 16.4 PREVIOUS WT HX 51KG (04/03/22) CACHETIC, NONVERBAL PT WITH INCREASED NUTRITION RISK R/T PRESSURE INJURIES DIET RX: REGULAR-APPROPRIATE RECOMMEND ADDING ENSURE BID TO INCREASE KCALS SUPP TO PROVIDE 700KCALS, 40G PROTEIN WITH 100% ACCEPTANCE MONITOR PO INTAKE CLOSELY SEE ALSO FULL CLINICAL NUTRITION ASSESSMENT
[2022-08-05] MEDS: Azithromycin 500 MG in 0.9 % Sodium Chloride 250 ML 125 MG IV (10:34)
[2022-08-05 11:22] VITALS: BP 124/82; PULSE 74; RESP 20; TEMP 36.2; O2SAT 96
[2022-08-05] MEDS: Albumin Human 25 % 100 ML IV (11:50)
--- NOTE | 2022-08-05 11:54 | P.PNIM_ITS ---
Subjective Subjective Date of Service: 08/05/22 Review of Systems Follow up septic shock, hypotension doing better non verbal Review of Systems: Yes Unobtainable due to mental condition and Unobtainable due to mental status Physical Exam Vital Signs: Vital Signs: Last Vital Signs Temp 97.2 F 08/05/22 11:22 Pulse 74 08/05/22 11:22 Resp 20 08/05/22 11:22 BP 124/82 08/05/22 11:22 Pulse Ox 96 08/05/22 11:22 O2 Del Method Room Air 08/05/22 11:22 O2 Flow Rate 3 08/04/22 15:28 Oxygen Flow Rate 13 08/03/22 23:30 BMI result Body Mass Index 16.4 Appearing in no acute distress. nonverbal lung sounds are clear to auscultation heart regular rate rhythm, clear S1, S2 positive bowel sounds, abdomen is soft, nontender neuro patient is alert x3, no focal deficits MSK LE contractures Objective Data Active Medications Acetaminophen (Acetaminophen 325 Mg Tablet) 650 mg PO Q6H PRN PRN Reason: Pain, Mild (Pain Scale 1-3) Docusate Sodium (Docusate Sodium 100 Mg Capsule) 100 mg PO DAILY PRN PRN Reason: Constipation Enoxaparin Sodium (Enoxaparin Sodium 40 Mg/0.4 Ml Syringe) 40 mg SUBCUT Q24H [facility] Last Admin: 08/05/22 06:17 Dose: 40 mg Documented By: ODILON Ceftriaxone Sodium 1 gm/ (Sodium Chloride) 50 mls @ 100 mls/hr IV Q24H [facility] Last Infusion: 08/05/22 06:45 Dose: 0 mls/hr Documented By: TIKI Azithromycin 500 mg/ Sodium (Chloride) 250 mls @ 125 mls/hr IV Q24H [facility] Last Admin: 08/05/22 10:34 Dose: 125 mls/hr Documented By: MEG Sodium Chloride (Ns) 1,000 mls @ 125 mls/hr IVCONT .Q8H [facility] Last Admin: 08/05/22 08:57 Dose: Not Given Documented By: TIKI Non-Admin Reason: IV Running Norepinephrine Bitartrate (Levophed) 8 mg in 250 mls @ 0 mls/hr IV .Q0M [facility]; Protocol Last Admin: 08/04/22 10:40 Dose: 0.05 mcg/kg/min, 4.31 mls/hr Documented By: AIDEE Albumin Human (Kedbumin 25 %) 100 mls @ 100 mls/hr IV Q6H [facility] Stop: 08/05/22 11:59 Last Admin: 08/05/22 11:50 Dose: 100 mls/hr Documented By: TIKI Vancomycin HCl 750 mg/ Sodium (Chloride) 265 mls @ 265 mls/hr IV Q12H [facility] Last Infusion: 08/05/22 11:39 Dose: 0 mls/hr Documented By: TIKI Piperacillin Sod/Tazobactam (Sod 4.5 gm/ Sodium Chloride) 100 mls @ 200 mls/hr IV Q6H [facility] Last Infusion: 08/05/22 11:39 Dose: 0 mls/hr Documented By: TIKI Ondansetron HCl (Ondansetron Hcl 4 Mg/2 Ml Vial) 4 mg IVPUSH Q8H PRN PRN Reason: Nausea and Vomiting Pharmacy Consult (Consult Rx Vancomycin Dosing) 1 each MISCELLANE DAILY PRN PRN Reason: Consult order Sodium Chloride (0.9 % Sodium Chloride Flush 3 Ml Syringe) 3 ml IVFLUSH QSHIFT [facility] Last Admin: 08/05/22 07:58 Dose: Not Given Documented By: TIKI Non-Admin Reason: IV Running Labs 08/05/22 06:44 08/05/22 06:44 Labs: Laboratory Results - last 24 hr 08/04/22 08/04/22 08/05/22 15:19 19:17 06:44 MCV 93.5 MCH 29.7 MCHC 31.8 RDW 12.9 Plt Count 159 L MPV 11.5 Immature Gran % (Auto) 0.4 Neut % (Auto) 82.9 H Lymph % (Auto) 11.3 L [place] % (Auto) 5.0 Eos % (Auto) 0.3 Baso % (Auto) 0.1 Lymph # (Auto) 1.2 [place] # (Auto) 0.5 Eos # (Auto) 0.0 Baso # (Auto) 0.0 Abs Immat Gran (auto) 0.04 H Absolute Neuts (auto) 8.7 H Absolute Nucleated RBC 0.000 Nucleated RBC % (auto) 0.0 Anion Gap 12 10 L Estim Creat Clear Calc 78.2 80.9 Estimated GFR > 60 > 60 Random Glucose 78 79 Calcium 8.7 8.5 08/05/22 06:44 MCV MCH MCHC RDW Plt Count MPV Immature Gran % (Auto) Neut % (Auto) Lymph % (Auto) [place] % (Auto) Eos % (Auto) Baso % (Auto) Lymph # (Auto) [place] # (Auto) Eos # (Auto) Baso # (Auto) Abs Immat Gran (auto) Absolute Neuts (auto) Absolute Nucleated RBC Nucleated RBC % (auto) Anion Gap 11 L Estim Creat Clear Calc 78.2 Estimated GFR > 60 Random Glucose 77 Calcium 8.6 Microbiology Microbiology Results: Microbiology 08/04/22 00:18 Blood Culture - Preliminary Blood - Venous No growth after 24 hours. 08/04/22 00:18 Blood Culture - Preliminary Blood - Venous No growth after 24 hours. Assessment and Plan (1) Pneumonia: Status: Acute Plan 57-year-old female past medical history of dementia presents the hospital after visiting nurse found her to be sleeping on an air mattress that had no Shilpa it for several days and have multiple pressure ulcers found to have acute pneumonia Septic shock secondary to Community-acquired pneumonia Associated with hypoxia Initially on Rocephin and azithromycin, due to septic shock start vanco and zosyn Follow blood cx neg blood cx so far after 24 hrs hypotension, secondary to septic shock. Resolved clinically patient appears significantly dehydrated, with concentrated urine, and very dry mucosal membranes s/p started on Pressors in the ED due to SBP as low as 50. Seen and evaluated by ICU provider>rec albumin and continued IV fluids weaned off pressors with stable blood pressure hypernatremia secondary to hypovolemia continue IV fluids Hypokalemia secondary to poor nutrition Transaminitis likely secondary to hypovolemia ? Pressure ulcers present on admission wound care consulted Mental health/dementia non verbal and non ambulatory for the last 6 months according to her son with whom she lives speech/swallow eval>Ground solids severe protein calorie malnutrition BMI 16.4 nutrition consult DVT prophylaxis with Lovenox Attending Dr. Jimenez Continue hospital stay for tx of septic shock and CAP requiring IV abx and fluids Time Spent With Patient Time: Total time managing care of this patient today ____ minutes. Quality Stroke Does the patient have a stroke diagnosis?: No VTE Prior VTE?: No VTE Risk Level:: Medical - moderate - high VTE Device Contraindication: Treatment Not Indicated VTE Drug Contraindication: N/A - Med Ordered
[2022-08-05 15:28] VITALS: BP 129/83; PULSE 70; RESP 14; TEMP 36.2; O2SAT 97
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
[2022-08-05] MEDS: 0.9 % Sodium Chloride Flush 3 ML SYRINGE IVFLUSH (17:06)
[2022-08-05 19:22] VITALS: BP 115/72; PULSE 70; RESP 14; TEMP 36.5; O2SAT 95
[2022-08-05] MEDS: vancomycin HCL 1,000 MG in 0.9 % Sodium Chloride 250 ML 270 MG IV (20:25)
[2022-08-05 23:42] VITALS: BP 129/60; PULSE 67; RESP 14; TEMP 36.6; O2SAT 94
[2022-08-06 03:14] VITALS: BP 128/80; PULSE 66; RESP 18; TEMP 36.6; O2SAT 92
[2022-08-06] MEDS: 0.9 % Sodium Chloride 1,000 ML 125 ML IVCONT ×2 (04:15→15:02)
[2022-08-06] MEDS: Piperacillin Sodium/Tazobactam 4.5 GM in 0.9 % Sodium Chloride 100 ML IV ×4 (04:16→22:24)
[2022-08-06] MEDS: cefTRIAXone sodium 1 GM in 0.9 % Sodium Chloride 50 ML IV (06:17)
[2022-08-06] MEDS: Enoxaparin Sodium 40 MG/0.4 ML SYRINGE SUBCUT (06:22)
[2022-08-06 07:55] VITALS: BP 138/94; PULSE 69; RESP 18; TEMP 36.7; O2SAT 90
[2022-08-06] MEDS: vancomycin HCL 1,000 MG in 0.9 % Sodium Chloride 250 ML 270 MG IV ×2 (07:55→20:46)
[2022-08-06] MEDS: Azithromycin 500 MG in 0.9 % Sodium Chloride 250 ML 125 MG IV (07:55)
[2022-08-06] MEDS: 0.9 % Sodium Chloride Flush 3 ML SYRINGE IVFLUSH ×3 (07:56→20:50)
[2022-08-06 12:00] VITALS: BP 175/89; PULSE 77; TEMP 36.8
--- NOTE | 2022-08-06 12:06 | PC.NURSE ---
During 11:30 vitals, patient's o2 was 85% on room air. patient does not appear to be in any respiratory distress and has a normal WOB. Dr. estrada was notified and the patient was placed on a continuous o2 monitor to confirm reading. Patient remained in the mid 80s with occasional dips to low 80s. Pt was placed on 2L NC and is currently satting at 95% on 2L. MD notified. will continue to monitor
--- NOTE | 2022-08-06 12:28 | MHC.CLN ---
F/U PT IS SEVERELY MALNOURISHED SEE FULL CLINICAL NUTRITION ASSESSMENT DATED 08/05/22 CACHETIC, NONVERBAL PT WITH INCREASED NUTRITION RISK R/T PRESSURE INJURIES PO INTAKE 75% X 1 MEAL DIET RX: REGULAR GRD M/S-APPROPRIATE PT RECEIVING ENSURE BID TO INCREASE KCALS SUPP PROVIDES 700KCALS, 40G PROTEIN WITH 100% ACCEPTANCE MONITOR PO INTAKE CLOSELY
[2022-08-06 14:04] LABS: Creatinine Clr Calc Pharmacy 69.9; Estimated Glomerular Filt Rate > 60
--- NOTE | 2022-08-06 14:07 | MHC.SLORD ---
Speech Language Pathology Order Status: SENIOR SUPPLY CHAIN ANALYST attempted to see patient multiple to monitor for diet toleration. Each time, pt did not respond to verbal stimuli. Per PHP ENGINEER, pt tolerated oatmeal and liquids at breakfast, however did not swallow eggs. PHP ENGINEER reports pt tolerated pudding and Ensure at lunch. Per conversations w/ nursing, recommend DOWNGRADE to PUREE solids. Pt to be re-evaluated tomorrow by SENIOR SUPPLY CHAIN ANALYST.
--- NOTE | 2022-08-06 15:11 | MHC.SLORD ---
Speech Language Pathology Order Status: Pt seen by WELDER SETTER ELECTRON BEAM MACHINE yesterday and recommended ground solids (NDD2) and thin liquids. WELDER SETTER ELECTRON BEAM MACHINE attempted to see patient multiple to monitor for diet toleration. Each time, pt did not respond to verbal stimuli. Per MANAGER EXCHANGE, pt tolerated oatmeal and liquids at breakfast, however did not swallow eggs. MANAGER EXCHANGE reports pt tolerated pudding and Ensure at lunch. Per conversations w/ nursing, recommend DOWNGRADE to PUREE solids Continue w/ thin liquids and full supervision/assist. Pt to be re-evaluated tomorrow by WELDER SETTER ELECTRON BEAM MACHINE.
--- NOTE | 2022-08-06 15:16 | P.PNIM_ITS ---
Subjective Subjective Date of Service: 08/06/22 Interval History: Essentially nonverbal appears comfortable Review of Systems Unable to obtain Physical Exam Vital Signs: Vital Signs: Last Vital Signs Temp 98.2 F 08/06/22 12:00 Pulse 77 08/06/22 12:00 Resp 18 08/06/22 07:55 BP 175/89 H 08/06/22 12:00 Pulse Ox 90 L 08/06/22 07:55 O2 Del Method Nasal Cannula 08/06/22 12:00 O2 Flow Rate 2 08/06/22 12:00 Oxygen Flow Rate 13 08/03/22 23:30 BMI result Body Mass Index 16.4 Const: Other: Awake/nonverbal HEENT: Other: Mucous membranes dry Resp: Other: Mild left-sided crackles Cardio: Other: No S4; positive S1-S2; no S3 murmurs rubs or gallops GI: Other: Soft nontender nondistended normoactive bowel sounds Extrem: Other: No edema bilaterally Objective Data Active Medications Acetaminophen (Acetaminophen 325 Mg Tablet) 650 mg PO Q6H PRN PRN Reason: Pain, Mild (Pain Scale 1-3) Docusate Sodium (Docusate Sodium 100 Mg Capsule) 100 mg PO DAILY PRN PRN Reason: Constipation Enoxaparin Sodium (Enoxaparin Sodium 40 Mg/0.4 Ml Syringe) 40 mg SUBCUT Q24H [facility] Last Admin: 08/06/22 06:22 Dose: 40 mg Documented By: DANIELA Ceftriaxone Sodium 1 gm/ (Sodium Chloride) 50 mls @ 100 mls/hr IV Q24H [facility] Last Infusion: 08/06/22 06:51 Dose: 0 mls/hr Documented By: DANIELA Azithromycin 500 mg/ Sodium (Chloride) 250 mls @ 125 mls/hr IV Q24H [facility] Last Infusion: 08/06/22 09:55 Dose: 0 mls/hr Documented By: TIKI Sodium Chloride (Ns) 1,000 mls @ 125 mls/hr IVCONT .Q8H [facility] Last Admin: 08/06/22 15:02 Dose: 125 mls/hr Documented By: TIKI Norepinephrine Bitartrate (Levophed) 8 mg in 250 mls @ 0 mls/hr IV .Q0M [facility]; Protocol Last Admin: 08/04/22 10:40 Dose: 0.05 mcg/kg/min, 4.31 mls/hr Documented By: AIDEE Piperacillin Sod/Tazobactam (Sod 4.5 gm/ Sodium Chloride) 100 mls @ 200 mls/hr IV Q6H [facility] Last Infusion: 08/06/22 11:16 Dose: 0 mls/hr Documented By: TIKI Vancomycin HCl 1,000 mg/ (Sodium Chloride) 270 mls @ 270 mls/hr IV Q12H [facility] Last Infusion: 08/06/22 09:41 Dose: 0 mls/hr Documented By: TIKI Ondansetron HCl (Ondansetron Hcl 4 Mg/2 Ml Vial) 4 mg IVPUSH Q8H PRN PRN Reason: Nausea and Vomiting Pharmacy Consult (Consult Rx Vancomycin Dosing) 1 each MISCELLANE DAILY PRN PRN Reason: Consult order Sodium Chloride (0.9 % Sodium Chloride Flush 3 Ml Syringe) 3 ml IVFLUSH QSHIFT [facility] Last Admin: 08/06/22 07:56 Dose: 3 ml Documented By: TIKI Labs 08/05/22 06:44 08/06/22 13:34 Labs: Laboratory Results - last 24 hr 08/05/22 08/06/22 17:08 13:34 Estim Creat Clear Calc 69.9 Estimated GFR > 60 Random Vancomycin 12.0 L Microbiology Microbiology Results: Microbiology 08/04/22 00:18 Blood Culture - Preliminary Blood - Venous No growth after 48 hours. 08/04/22 00:18 Blood Culture - Preliminary Blood - Venous No growth after 48 hours. Assessment and Plan (1) Septic shock: Status: Acute (2) Pneumonia: Status: Acute (3) Hypernatremia: Status: Acute (4) Hypokalemia: Status: Acute Plan 57-year-old female past medical history of dementia presents the hospital after visiting nurse found her to be sleeping on an air mattress that had no air it for several days and have multiple pressure ulcers found to have acute pneumonia 1.Septic shock secondary to Community-acquired pneumonia -vanco/Zosyn (2) -hypotension resolved; shock resolved -cultures negative times 48 hours 2.Hypernatremia -calculated 2 L free water deficit -D5W at 125 an hour -follow renals/divalents 3.Hypokalemia -IV potassium -check magnesium potassium in a.m. 4.Pressure ulcers -present on admission -wound care consult Janeth Full Code Requires ongoing hospitalization to replete free water deficit and to maintain electrolytes; requires IV antibiotics to treat septic shock secondary to community-acquired pneumonia Time Spent With Patient Time: Total time managing care of this patient today ____ minutes. Quality Stroke Does the patient have a stroke diagnosis?: No VTE Prior VTE?: No VTE Risk Level:: Medical - moderate - high VTE Device Contraindication: Treatment Not Indicated VTE Drug Contraindication: N/A - Med Ordered
[2022-08-06 15:21] VITALS: BP 129/94; PULSE 81; RESP 20; TEMP 36.4; O2SAT 92
[2022-08-06] MEDS: Potassium Chloride/H20 10 MEQ/100 ML PIGGYBACK 100 MEQ IV (15:57)
--- NOTE | 2022-08-06 16:01 | HO.WOUND ---
Wound Care Consult Reason for consult: Pressure ulcers on left shoulder and left hip Patient has a unstageable pressure ulcer on the left shoulder and an unstageable pressure ulcer on the left hip. Foam borders were removed from both wounds at the time of the consult. Left shoulder wound- Wound bed was about 95% slough/eschar with very little pink granulation tissue towards the edge of wound. Wound edges were attached. No undermining or tunneling. No odor noted. There was a small amount of serous drainage on the dressing. Periwound appearance was dry and intact. Wound measured 5.1cm x 2.3cm x 0.1cm. Wound was cleaned with sea clense wound cleanser. Foam border dressing reapplied for now. Left hip wound- wound bed was 100% slough/eschar. Wound edges were attached. No undermining or tunneling. No odor. Periwound had a small excoriated area distal to the wound, possibly from the dressing adhesive. Small amount of serous drainage noted on dressing. Wound measured 3cm x 2.2cm x 0.1cm. Wound was cleaned with sea clense wound cleanser. Applied zinc barrier cream to the excoriated area. Foam border reapplied to wound for now. Recommendation: Left shoulder wound- Cleanse with normal saline or sea clense. Would recommend applying Collagenase Santyl ointment, hubert thick, to the wound bed. Cover with foam border or gauze and tape daily. If periwound starts to get macerated, may apply zinc barrier cream around the wound. Would also suggest using skin prep to the areas where the adhesive is going to protect the patient's fragile skin from breaking down with the increased dressing changes. Left hip wound- Cleanse with normal saline or sea clense. Would also recommend applying Collagenase Santyl ointment, hubert thick, to the wound bed. Cover with foam border or gauze and tape daily. Continue to apply zinc to the excoriated area with dressing changes until resolved. If periwound starts to get macerated, may apply zinc barrier cream around the wound also. Would also suggest using skin prep to the areas where the adhesive is going to protect the patient's fragile skin from breaking down with the increased dressing changes. Patient already has an airbed in place. Continue with frequent position changes. If not already in place with dietary, would recommend increasing patients protein intake if able to help with wound healing. If there are any changes or questions with the wounds, please feel free to consult wound care again. If patient is still in need for wound care services upon discharge, please make appt with the outpatient wound care clinic.
--- NOTE | 2022-08-06 17:19 | PC.NURSE ---
patient had minimal urine output since beginning of shift. Bladder scan revealed [address] estrada was notified and the patient was straight cathed. 280mL of urine drained from bladder.
[2022-08-06] MEDS: Potassium Chloride/H20 10 MEQ/100 ML PIGGYBACK 75 MEQ IV ×3 (18:12→22:24)
[2022-08-06 19:23] VITALS: BP 136/92; PULSE 79; RESP 20; TEMP 36.4; O2SAT 92
[2022-08-06 23:27] VITALS: BP 136/100; PULSE 75; RESP 18; TEMP 36.8; O2SAT 90
[2022-08-07] VITALS (13 sets, daily range): BP systolic 120–138; BP diastolic 80–101; PULSE 75–85; RESP 17–34; TEMP 36.1–37.2; O2SAT 83–99
--- NOTE | 2022-08-07 | ECG_ITS ---
Test Reason : NSTEMI Blood Pressure : / mmHG Vent. Rate : 080 BPM Atrial Rate : 080 BPM P-R Int : 150 ms QRS Dur : 170 ms QT Int : 470 ms P-R-T Axes : 022 -62 -80 degrees QTc Int : 542 ms Normal sinus rhythm Right bundle branch block Left anterior fascicular block Bifascicular block T wave abnormality, consider inferolateral ischemia Abnormal ECG When compared with ECG of 04-AUG-2022 01:00, T wave inversion now evident in Inferior leads T wave inversion more evident in Anterolateral leads Referred By: Iris Mora Electronically Signed By:Santi Jackson
--- NOTE | 2022-08-07 02:22 | PC.NURSE ---
pt bladder scanned at 01:00. 100mls scanned. will continue to monitor
[2022-08-07] MEDS: Piperacillin Sodium/Tazobactam 4.5 GM in 0.9 % Sodium Chloride 100 ML IV ×4 (03:12→21:05)
[2022-08-07] MEDS: cefTRIAXone sodium 1 GM in 0.9 % Sodium Chloride 50 ML IV (05:47)
[2022-08-07] MEDS: Enoxaparin Sodium 40 MG/0.4 ML SYRINGE SUBCUT (05:55)
[2022-08-07 06:58] LABS: Hematocrit 35.7 % (37.0-47.0); Hemoglobin 11.2 g/dl (12.0-16.0); Mean Corpuscular HGB Conc 31.4 g/dl (31.0-35.0); Mean Corpuscular Hemoglobin 29.5 pg (27.0-33.0); Mean Corpuscular Volume 93.9 fL (80.0-98.0); Mean Platelet Volume 11.9 fL (9.4-12.3); Platelet Count 216 X10*3/uL (160-400); White Blood Count 13.3 X10*3/uL (4.8-10.8)
[2022-08-07 07:20] LABS: Alanine Aminotransferase 96 U/L (0-31); Albumin Level 2.9 g/dL (3.5-5.0); Alkaline Phosphatase 110 U/L (39-117); Aspartate Amino Transferase 101 U/L (5-31); Bilirubin Total 1.3 mg/dL (0.0-1.0); Blood Urea Nitrogen 16 mg/dL (9-16); Calcium 8.3 mg/dL (8.4-10.2); Creatinine Clr Calc Pharmacy 67.8; Estimated Glomerular Filt Rate > 60; Glucose Fasting 105 mg/dL (60-99); Total Protein 5.3 g/dL (6.5-8.0)
[2022-08-07 07:29] LABS: Anion Gap 16 (12-20); Carbon Dioxide 20 mmol/L (22-29); Chloride 123 mmol/L (96-108); Sodium 156 mmol/L (135-145)
[2022-08-07] MEDS: vancomycin HCL 1,000 MG in 0.9 % Sodium Chloride 250 ML 270 MG IV ×2 (07:46→19:53)
[2022-08-07] MEDS: Azithromycin 500 MG in 0.9 % Sodium Chloride 250 ML 125 MG IV (08:00)
[2022-08-07] MEDS: 0.9 % Sodium Chloride Flush 3 ML SYRINGE IVFLUSH ×2 (08:01→16:29)
[2022-08-07 08:06] LABS: Magnesium 1.7 mg/dL (1.6-2.6)
[2022-08-07] MEDS: Dextrose 5 % 1,000 ML 125 ML IVCONT ×2 (09:14→18:47)
--- NOTE | 2022-08-07 10:46 | MHC.SL.SWA ---
Speech Pathologist Impression: Risk of Aspiration Due to: Lethargy Medically Fragile Neurological Condition History of Pneumonia Poor PO Intake Weak Cough Weak Voice Dysphasia Diet Status: Liquid Consistency and Strategies for Safe Swallow: Liquid Intake Recommendation: Thin Liquid Intake Strategies: Small Sips Solid Food Consistency: Dietary Recommendations: Grnd/Mech Altered (NDD2) Additional Modifications to Solid Foods: Oral Medication Intake: Crushed with Puree Please contact the pharmacy regarding appropriate crushable or liquid drug formulations that are available whenever modified delivery is recommended. Compensatory Strategies and Precautions to be Taken for Safe Swallow: Sitting Upright (90 deg) Liquids from Straw Small Bites and Sips Alternate Liquids/Solids Rate of Ingestion Change Avoid Specific Foods Supervision While Eating and Drinking for Safe Swallow: Total Assistance (1:1) Foods to Avoid: Mixed consistencies such as soups, cereal with milk, fruit cups. Swallowing Recommended Treatments: Compens. Strategy Educat. Recommendation for Speech: Inpatient Speech Therapy Comment: Recommend Ground/Mech Altered (NDD2) Solids and Thin Liquids. Pt will require 1:1 assistance with feeding. Aspiration precautions include upright positioning in bed, slow pace, small bites/sips, use of straws OK. VICE PRESIDENT OF PROCUREMENT will continue to follow. Frequency/Duration: Date Range for Service Req: Timeline to reassess: PRN Paper Tube Machine Operator Clinican/Clinical Fellow: No Supervisory Statement: I have reviewed and agree with the student/clinical fellow's documentation: N/A Speech Language Pathologist: Deshawn Hoff M.A., [facility]-VICE PRESIDENT OF PROCUREMENT
--- NOTE | 2022-08-07 14:18 | HO.PM.IMPN ---
Subjective Subjective Date of Service: 08/07/22 Interval History: Essentially no changes overnight. Minimally verbal. Now with an O2 requirement Review of Systems Unable to obtain Physical Exam Vital Signs: Vital Signs: Last Vital Signs Temp 98.1 F 08/07/22 11:13 Pulse 85 08/07/22 11:13 Resp 20 08/07/22 11:13 BP 120/80 08/07/22 11:13 Pulse Ox 93 08/07/22 11:13 O2 Del Method Nasal Cannula 08/07/22 11:13 O2 Flow Rate 2 08/07/22 11:13 Oxygen Flow Rate 13 08/03/22 23:30 BMI result Body Mass Index 16.4 Const: Other: Awake/nonverbal HEENT: Other: Mucous membranes dry Resp: Other: Mild left-sided crackles Cardio: Other: No S4; positive S1-S2; no S3 murmurs rubs or gallops GI: Other: Soft nontender nondistended normoactive bowel sounds Extrem: Other: No edema bilaterally Objective Data Active Medications Acetaminophen (Acetaminophen 325 Mg Tablet) 650 mg PO Q6H PRN PRN Reason: Pain, Mild (Pain Scale 1-3) Docusate Sodium (Docusate Sodium 100 Mg Capsule) 100 mg PO DAILY PRN PRN Reason: Constipation Enoxaparin Sodium (Enoxaparin Sodium 40 Mg/0.4 Ml Syringe) 40 mg SUBCUT Q24H [facility] Last Admin: 08/07/22 05:55 Dose: 40 mg Documented By: CARRIE Ceftriaxone Sodium 1 gm/ (Sodium Chloride) 50 mls @ 100 mls/hr IV Q24H [facility] Last Infusion: 08/07/22 06:27 Dose: 0 mls/hr Documented By: CARRIE Azithromycin 500 mg/ Sodium (Chloride) 250 mls @ 125 mls/hr IV Q24H [facility] Last Infusion: 08/07/22 10:12 Dose: 0 mls/hr Documented By: JELLY Norepinephrine Bitartrate (Levophed) 8 mg in 250 mls @ 0 mls/hr IV .Q0M [facility]; Protocol Last Admin: 08/04/22 10:40 Dose: 0.05 mcg/kg/min, 4.31 mls/hr Documented By: AIDEE Piperacillin Sod/Tazobactam (Sod 4.5 gm/ Sodium Chloride) 100 mls @ 200 mls/hr IV Q6H [facility] Last Infusion: 08/07/22 11:04 Dose: 0 mls/hr Documented By: JELLY Vancomycin HCl 1,000 mg/ (Sodium Chloride) 270 mls @ 270 mls/hr IV Q12H [facility] Last Infusion: 08/07/22 09:15 Dose: 0 mls/hr Documented By: JELLY Dextrose (D5w) 1,000 mls @ 125 mls/hr IVCONT .Q8H [facility] Last Admin: 08/07/22 09:14 Dose: 125 mls/hr Documented By: JELLY Ondansetron HCl (Ondansetron Hcl 4 Mg/2 Ml Vial) 4 mg IVPUSH Q8H PRN PRN Reason: Nausea and Vomiting Pharmacy Consult (Consult Rx Vancomycin Dosing) 1 each MISCELLANE DAILY PRN PRN Reason: Consult order Sodium Chloride (0.9 % Sodium Chloride Flush 3 Ml Syringe) 3 ml IVFLUSH QSHIFT [facility] Last Admin: 08/07/22 08:01 Dose: 3 ml Documented By: JELLY Labs 08/07/22 06:30 08/07/22 06:30 Labs: Laboratory Results - last 24 hr 08/06/22 08/07/22 08/07/22 17:50 06:30 06:30 MCV 93.9 MCH 29.5 MCHC 31.4 RDW 13.0 Plt Count 216 D MPV 11.9 Absolute Nucleated RBC 0.000 Nucleated RBC % (auto) 0.0 Anion Gap 16 Estim Creat Clear Calc 67.8 Estimated GFR > 60 Fasting Glucose 105 H Calcium 8.3 L Magnesium 1.7 Total Bilirubin 1.3 H AST 101 H ALT 96 H Alkaline Phosphatase 110 Total Protein 5.3 L Albumin 2.9 L Random Vancomycin 14.0 L Assessment and Plan (1) Septic shock: Status: Acute (2) Hypernatremia: Status: Acute (3) Hypokalemia: Status: Acute Plan 57-year-old female past medical history of dementia presents the hospital after visiting nurse found her to be sleeping on an air mattress that had no air it for several days and have multiple pressure ulcers found to have acute pneumonia 1.Septic shock secondary to Community-acquired pneumonia -vanco/Zosyn (3) -hypotension resolved; shock resolved -cultures negative times 48 hours 2.Hypernatremia -calculated 2 L free water deficit -D5W at 125 an hour -follow renals/divalents 3.Hypokalemia -IV potassium -check magnesium potassium in a.m. 4.Pressure ulcers -present on admission -wound care consult Janeth Full Code Requires ongoing hospitalization to replete free water deficit and to maintain electrolytes; requires IV antibiotics to treat septic shock secondary to community-acquired pneumonia Time Spent With Patient Time: Total time managing care of this patient today ____ minutes. Quality Stroke Does the patient have a stroke diagnosis?: No VTE Prior VTE?: No VTE Risk Level:: Medical - moderate - high VTE Device Contraindication: Treatment Not Indicated VTE Drug Contraindication: N/A - Med Ordered
[2022-08-07] MEDS: Potassium Chloride/H20 10 MEQ/100 ML PIGGYBACK 100 MEQ IV ×4 (16:29→23:12)
[2022-08-07 18:26] LABS: Vancomycin Random 14.9 mcg/mL (15-20)
--- NOTE | 2022-08-07 18:33 | HE.PHANOTE ---
Vancomycin Dosing Addendum Patients level back today at 14.9. Will continue with current dose as AUC is within range. Predicted AUC 531 mg/L/hr. Will get another level tomorrow 08/08 @1800 to ensure patient safety vs efficacy.
[2022-08-07] MEDS: methylPREDNISolone Sod Succ 125 MG/2 ML VIAL IVPUSH (18:51)
--- NOTE | 2022-08-07 19:01 | MHC.SL.SWA ---
Speech Pathologist Impression: Risk of Aspiration Due to: Lethargy Medically Fragile Neurological Condition History of Pneumonia Poor PO Intake Weak Cough Weak Voice Dysphasia Diet Status: Recommend patient continue on current diet of PUREE (NDD1) with Thin liquids by controlled cup sip only. Liquid Consistency and Strategies for Safe Swallow: Liquid Intake Recommendation: Thin Liquid Intake Strategies: Small Sips Solid Food Consistency: Dietary Recommendations: Pureed (NDD1) Additional Modifications to Solid Foods: Patient requires 1-1 feeding. Monitor for attention/engagement with meal, pocketing or oral residual. Alternate liquids and solids. Oral Medication Intake: Crushed with Puree Please contact the pharmacy regarding appropriate crushable or liquid drug formulations that are available whenever modified delivery is recommended. Compensatory Strategies and Precautions to be Taken for Safe Swallow: Sitting Upright (90 deg) Liquids from Cup Small Bites and Sips Alternate Liquids/Solids Rate of Ingestion Change Oral Check Avoid Specific Foods Supervision While Eating and Drinking for Safe Swallow: Total Assistance (1:1) Foods to Avoid: Mixed consistencies such as soups, cereal with milk, fruit cups. Swallowing Recommended Treatments: Compens. Strategy Educat. Recommendation for Speech: Inpatient Speech Therapy Comment: Patient seen for re-assessment of swallow this a.m. Patient was awake and lying in bed, was communicated with in Japanese. Patient responded after delay to some yes no questions, used occasional word to communicate, but made limited eye contact, was mostly staring straight ahead, appeared anxious/fearful. Patient however cooperated with all trials today. Patient given controlled cup sips of water and juice, with patient containing liquid well, producing a timely oral phase, swallow trigger evident, laryngeal elevation wfl. On puree, patient produced a mildly prolonged oral phase, timely swallow, however evident oral residue after swallow cleared by sip of liquid. Patient was given softened agustin cracker in puree, with patient producing a prolonged period of masticating and manipulating the solid before initiating swallow, with evident oral residual after swallow cleared by sip of liquid. Patient continues to appear to tolerate puree consistencies best at this time, recommend patient continue on current diet of PUREE (NDD1) with Thin liquids by controlled cup sip only. Patient requires 1-1 feeding. Monitor for attention/engagement with meal, pocketing or oral residual. Alternate liquids and solids. Frequency/Duration: Date Range for Service Req: Timeline to reassess: PRN Quality Tech Clinican/Clinical Fellow: No Supervisory Statement: I have reviewed and agree with the student/clinical fellow's documentation: N/A Speech Language Pathologist: Grace Moss M.A., [facility]-ENDLESS TRACK VEHICLE MECHANIC
--- NOTE | 2022-08-07 19:02 | PC.NURSE ---
At start of shift, pt noted to desatting down to the low 80s on 4L NC. In to evaluate patient. Increased WOB, tachypnea to the high 20s, labored. O2 increased to 6L with no improvement. NC changed to [place] NC and increased to 10L [place] with no improvement. RT in to assess patient changed over to 15L [place] with O2 sats up to 87/88%. Cross coverage Morgan notified STAT CXR and ABG ordered and pending.
[2022-08-07 19:13] LABS: ABG Base Excess 1.4 mmol/L; ABG HCO3 25 mmol/L (22-26); ABG pCO2 39 mmHg (32-45); ABG pH 7.42 (7.35-7.45); ABG pO2 69 mmHg (83-108)
[2022-08-07 20:13] LABS: B Type Natriuretic Peptide 3875 pg/mL (<100)
[2022-08-07 20:24] LABS: Troponin-I High Sensitivity 234.7 ng/L (<3.5-17.0)
--- NOTE | 2022-08-07 21:36 | P.EN_ITS ---
Event Note Date of Service: 08/07/22 Event Note: Was informed by the nurse that patient was with increasing oxygen requirements and worsening tachypnea. Upon examination, patient was with bilateral crackles. Noted tachypnea in the 30s. Chest x-ray with bilateral pleural effusions and concerning for CHF. Noted elevated troponin and BNP. Also ordered ABG. Will stop fluids and order Lasix. Patient placed on CPAP. Also obtaining echocardiogram and consulting Cardiology. Elevated troponin likely due to in creased demand. Will repeat and get EKG Time Spent With Patient Time: Total time managing care of this patient today ____ minutes.
--- NOTE | 2022-08-07 21:40 | ECG_ITS ---
Test Reason : QT interval check Blood Pressure : / mmHG Vent. Rate : 076 BPM Atrial Rate : 076 BPM P-R Int : 150 ms QRS Dur : 170 ms QT Int : 458 ms P-R-T Axes : 032 -64 -83 degrees QTc Int : 515 ms Normal sinus rhythm Right bundle branch block Left anterior fascicular block Bifascicular block T wave abnormality, consider inferolateral ischemia Abnormal ECG When compared with ECG of 07-AUG-2022 21:47, No significant change was found Referred By: Iris Mora Electronically Signed By:Santi Jackson
[2022-08-07] MEDS: Furosemide 40 MG/4 ML VIAL IVPUSH (22:10)
[2022-08-08] VITALS (8 sets, daily range): BP systolic 105–133; BP diastolic 71–91; PULSE 69–89; RESP 12–22; TEMP 36.5–37.3; O2SAT 96–100
[2022-08-08 00:24] LABS: ABG Refer to POC result
[2022-08-08] MEDS: Piperacillin Sodium/Tazobactam 4.5 GM in 0.9 % Sodium Chloride 100 ML IV ×4 (03:25→22:34)
--- NOTE | 2022-08-08 05:02 | PC.NURSE ---
patient placed on cpap approximately at 19:15. satting in the high 90s. chest x-ray and abg obtained. labs ordered and obtained, critical troponin drawn, MD notified and no further orders placed. lasix ivpush ordered, notified of potassium levels and ordered to administer. patient bladder scanned approximately at 23:00 and was 213mls. patient has been having multiple incontinent voids, skin care provided and repositioned.
[2022-08-08] MEDS: cefTRIAXone sodium 1 GM in 0.9 % Sodium Chloride 50 ML IV (05:46)
[2022-08-08] MEDS: Enoxaparin Sodium 40 MG/0.4 ML SYRINGE SUBCUT (05:47)
[2022-08-08 06:29] LABS: MANUAL DIFF FLAG NO
[2022-08-08 06:31] LABS: Basophils Percent Auto 0.2 % (0-2); Hematocrit 30.3 % (37.0-47.0); Hemoglobin 9.6 g/dl (12.0-16.0); Imm Gran Abs Auto 0.11 X10*3/uL (0.00-0.03); Lymphocytes Absolute Auto 1.3 X10*3/uL (1.2-4.9); Lymphocytes Percent Auto 11.2 % (20-40); Mean Corpuscular HGB Conc 31.7 g/dl (31.0-35.0); Mean Corpuscular Volume 94.7 fL (80.0-98.0); Mean Platelet Volume 12.1 fL (9.4-12.3); Monocytes Absolute Auto 0.4 X10*3/uL (0.1-1.2); Monocytes Percent Auto 3.4 % (2-11); Neutrophils Absolute Auto 9.5 x10*3/uL (2.0-8.3); Neutrophils Percent Auto 84.2 % (45-73); Platelet Count 237 X10*3/uL (160-400); Red Cell Distribution Width 13.1 % (11.0-16.0); White Blood Count 11.2 X10*3/uL (4.8-10.8)
--- NOTE | 2022-08-08 07:00 | CA_ITS ---
Transthoracic Echocardiogram Patient (Last, First, Middle): Shalonda Murguia, Gender: Female Date of : 1965 Age: 57 Procedure Date: 08/08/2022 Procedure Type: Transthoracic Echocardiogram Location: [facility] [place] Height: 167.64 cm Weight: 45.81 kg BSA: 1.50 m2 Heart Rate: 75 bpm BP: 126 / 91 mmHg Piercer: SB Referring MD: Cristino Mora MD Symptoms: CHF Study Quality: Good ECG Rhythm: Sinus Conclusions: - Normal left ventricular cavity size. There is normal left ventricular wall thickness. The left ventricular systolic function is moderate to severely decreased. The visually estimated ejection fraction is between 25-30%. - Mildly increased right ventricular cavity size. There is normal right ventricular systolic function. - Significantly elevated right atrial pressure. Moderate pulmonary hypertension is present. - There is mild dilatation of the sinuses of Valsalva measuring 3.70 cm and mild dilatation of the ascending aorta measuring 4.00 cm. Findings Left Ventricle Normal left ventricular cavity size. There is normal left ventricular wall thickness. The left ventricular systolic function is moderate to severely decreased. The visually estimated ejection fraction is between 25-30%. There is moderate global hypokinesis with regional variation. Diastolic function is indeterminate on the basis of available data. Right Ventricle Mildly increased right ventricular cavity size. There is normal right ventricular systolic function. Atria The left atrium is mildly dilated. The right atrium is mildly dilated. Aortic Valve Normal aortic valve structure and function. There is no aortic valve stenosis. There is trace (trivial) aortic valve regurgitation. Mitral Valve Normal mitral valve structure and function. There is trace mitral valve regurgitation. There is no mitral valve stenosis. Pulmonic Valve Normal pulmonic valve structure and function. There is no pulmonic valve regurgitation. Tricuspid Valve Normal tricuspid valve structure and function. There is trace tricuspid valve regurgitation. The right ventricular systolic pressure is 45 mmHg. Significantly elevated right atrial pressure. Moderate pulmonary hypertension is present. Great Vessels There is mild dilatation of the sinuses of Valsalva measuring 3.70 cm and mild dilatation of the ascending aorta measuring 4.00 cm. The visualized portions of the pulmonary artery and branches are normal. Venous The inferior vena cava is dilated and collapses less than 50% with inspiration. Pericardium/Pleural There is no evidence of pericardial effusion. Prior Study Comparison No prior study available for comparison. Measurements 2D Linear Measurements IVSd: 0.82 0.6-0.9/0.6-1.0 cm LVIDd: 4.73 3.9-5.3/4.2-5.9 cm LVIDd Index: 3.15 2.4-3.2/2.2-3.1 cm/m2 LVIDs: 4.13 2.0-3.6 cm LVPWd: 0.71 0.7-1.1 cm LA Diam: 3.50 2.7-3.8/3.0-4.0 cm LAIDs Index: 2.33 1.5-2.3 cm/m2 LV Mass: 144.83 67-162/88-224 g LV Mass Index: 96.55 43-95/49-115 g/m2 LVOT Diam: 2.20 3.0+(-)1.3 cm 2D Systolic Function EF 4C: 26.70 >55% EF 2C: 44.40 >55% EF BiP: 34.30 >55% Mitral Valve MV Pk E: 0.59 MV PK A: 0.83 MV Decel Time: 166.00 E/A: 0.70 E'Lateral: 6.64 E'Medial: 4.46 E/E' Med: 13.20 E/E' Lat: 8.80 PHT: 49.00 MVA PHT: 4.49 Decel Hettinger: 3.54 Aortic Valve AoV Pk Hipolito: 1.28 AoV Pk Grad: 7.00 REID: 3.23 AI Pk Hipolito: 4.02 AI Hettinger: 1.95 LVOT LVOT Pk Hipolito: 1.11 LVOT Mn Hipolito: 0.84 LVOT VTI: 0.20 LVOT Pk Grad: 5.00 LVOT Mn Grad: 3.00 LVOT Diam: 2.20 LVOT Area: 3.80 Diastolic Function MV Pk E: 0.59 MV Pk A: 0.83 E/A: 0.70 E'Medial: 4.46 E/E' Med: 13.20 E' Laterial: 6.64 E/E' Lat: 8.80 Right Ventricle TAPSE (mm): 23.80 TVS' Hipolito: 10.00 Tricuspid Valve TR Pk Hipolito: 2.73 TR Pk Grad: 30.00 RA Press: 15.00 RVSP: 45.00 Great Vessels Aorta Sinus of Valsalva: 3.70 2.0-3.5 cm Ao Asc: 4.00 2.1-3.4 cm Pulmonary Valve PV Pk Hipolito: 0.69 Peak PV Grad: 2.00 Updated in Other Vendor System with Status of Final Santi Jackson MD electronically signed on 08/08/2022 4:51:42 PM with status of Final
[2022-08-08 07:01] LABS: Alanine Aminotransferase 72 U/L (0-31); Albumin Level 2.7 g/dL (3.5-5.0); Alkaline Phosphatase 89 U/L (39-117); Anion Gap 12 (12-20); Aspartate Amino Transferase 31 U/L (5-31); Bilirubin Total 0.6 mg/dL (0.0-1.0); Blood Urea Nitrogen 19 mg/dL (9-16); Calcium 8.2 mg/dL (8.4-10.2); Carbon Dioxide 25 mmol/L (22-29); Chloride 116 mmol/L (96-108); Creatinine Clr Calc Pharmacy 65.9; Estimated Glomerular Filt Rate > 60; Glucose Fasting 119 mg/dL (60-99); Potassium 3.3 mmol/L (3.3-5.1); Sodium 150 mmol/L (135-145); Total Protein 5.2 g/dL (6.5-8.0)
[2022-08-08 07:08] LABS: Troponin-I High Sensitivity 212.1 ng/L (<3.5-17.0)
[2022-08-08] MEDS: vancomycin HCL 1,000 MG in 0.9 % Sodium Chloride 250 ML 270 MG IV (07:38)
[2022-08-08] MEDS: Furosemide 40 MG/4 ML VIAL IVPUSH (07:38)
[2022-08-08] MEDS: 0.9 % Sodium Chloride Flush 3 ML SYRINGE IVFLUSH ×3 (07:46→21:08)
[2022-08-08] MEDS: Azithromycin 500 MG in 0.9 % Sodium Chloride 250 ML 125 MG IV (09:22)
[2022-08-08] MEDS: methylPREDNISolone Sod Succ 125 MG/2 ML VIAL 60 MG IVPUSH ×3 (09:22→21:07)
--- NOTE | 2022-08-08 10:47 | MHC.CM.PN ---
EMR REVIEWED, CM CONT'S TO WORK ON DISPO, CM DIRECTOR ATTEMPTING TO LOCATE HCP FOR DECISION MAKING THIS CM HAS BEEN UNABLE TO CONTACT HIM, CM WILL CONT TO FOLLOW D/C NEEDS.
--- NOTE | 2022-08-08 10:57 | MHC.CLN ---
F/U PT IS SEVERELY MALNOURISHED SEE FULL CLINICAL NUTRITION ASSESSMENT DATED 08/05/22 CACHETIC, NONVERBAL PT WITH INCREASED NUTRITION RISK R/T PRESSURE INJURIES PO INTAKE VARIABLE RANGING FROM 25-75% DIET RX: PUREED-APPROPRIATE TEST ADMINISTRATOR FOLLOWING FOR APPROPRIATE DIET CONSISTENCY PT RECEIVING ENSURE BID PROVIDES 700KCALS, 40G PROTEIN WITH 100% ACCEPTANCE RECOMMEND ADDING KYUNG BID AND THRIVE ICE CREAM TO INCREASE KCALS FOR WOUND HEALING CONTINUE TO MONITOR PO INTAKE CLOSELY
--- NOTE | 2022-08-08 11:29 | P.CONCA_ITS ---
History of Present Illness History of Present Illness Date of Service: 08/08/22 Requesting physician: Mekhi Sullivan Chief complaint: Pneumonia, CHF Narrative: 57-year-old female who has background history of dementia and is usually alert and oriented to self who presented with mental status changes and apparently was found by visiting nurse laying in a air bed without any air leading to pressure ulcers. She also was diagnosed with pneumonia. She was getting IV fluids for hypernatremia and developed worsening shortness of breath overnight. Chest x- ray showed significant bilateral infiltrates with pleural effusions and elevated BNP and mildly elevated troponin levels. No history is possible from the patient unfortunately due to dementia. She appears to be comfortable on supplemental oxygen currently. Even using a intelligence research specialist no meaningful history was possible. [facility] Past Medical History Medical History B12 deficiency Bowel and bladder incontinence Dementia Depression Encounter to establish care Hypertension SBO (small bowel obstruction) Family History Family History Father Pacemaker Chronic mental illness Hypertension Mother Hypertension Chronic mental illness Family/Other Chronic mental illness Brother No problems noted. Sister No problems noted. Son No problems noted. Daughter No problems noted. Daughter No problems noted. Daughter No problems noted. Surgical History Surgical History History of section History of incisional hernia repair History of ventral hernia repair Social History Social History Household Members: Family Household Members Other:: lives with son Housing: Apartment Do you presently have visiting nurse or other home services: Yes (2 days per week) Unable to assess alcohol history related to: Unable to respond Alcohol intake: unknown Patient Tobacco Use Status: Former Tobacco user Tobacco use type: Cigarette Years Smoked: 20 e-Cigarette/Vaping Use: Never Used Second Hand Smoke Exposure: No Advance Directives Date on File: 08/04/22 service: No Meds Allergies Allergy/AdvReac Type Severity Reaction Status Date / Time No Known Allergies Allergy Verified 05/08/22 13:15 [No Known Allergies*] Active Medications: Current Medications Acetaminophen (Acetaminophen 325 Mg Tablet) 650 mg PO Q6H PRN PRN Reason: Pain, Mild (Pain Scale 1-3) Docusate Sodium (Docusate Sodium 100 Mg Capsule) 100 mg PO DAILY PRN PRN Reason: Constipation Enoxaparin Sodium (Enoxaparin Sodium 40 Mg/0.4 Ml Syringe) 40 mg SUBCUT Q24H [facility] Last Admin: 08/08/22 05:47 Dose: 40 mg Furosemide (Furosemide 40 Mg/4 Ml Vial) 40 mg IVPUSH DAILY [facility]; Protocol Last Admin: 08/08/22 07:38 Dose: 40 mg Ceftriaxone Sodium 1 gm/ (Sodium Chloride) 50 mls @ 100 mls/hr IV Q24H [facility] Last Infusion: 08/08/22 06:18 Dose: Infused Azithromycin 500 mg/ Sodium (Chloride) 250 mls @ 125 mls/hr IV Q24H [facility] Last Admin: 08/08/22 09:22 Dose: 125 mls/hr Norepinephrine Bitartrate (Levophed) 8 mg in 250 mls @ 0 mls/hr IV .Q0M [facility]; Protocol Last Titration: 08/08/22 11:06 Dose: Infused Piperacillin Sod/Tazobactam (Sod 4.5 gm/ Sodium Chloride) 100 mls @ 200 mls/hr IV Q6H [facility] Last Admin: 08/08/22 11:07 Dose: 200 mls/hr Vancomycin HCl 1,000 mg/ (Sodium Chloride) 270 mls @ 270 mls/hr IV Q12H [facility] Last Infusion: 08/08/22 11:04 Dose: Infused Methylprednisolone Sodium Succinate (Methylprednisolone Sod Succ 125 Mg/2 Ml Vial) 60 mg IVPUSH Q6H [facility] Last Admin: 08/08/22 09:22 Dose: 60 mg Ondansetron HCl (Ondansetron Hcl 4 Mg/2 Ml Vial) 4 mg IVPUSH Q8H PRN PRN Reason: Nausea and Vomiting Pharmacy Consult (Consult Rx Vancomycin Dosing) 1 each MISCELLANE DAILY PRN PRN Reason: Consult order Sodium Chloride (0.9 % Sodium Chloride Flush 3 Ml Syringe) 3 ml IVFLUSH QSHIFT [facility] Last Admin: 08/08/22 07:46 Dose: 3 ml Physical Exam Vital Signs: Vital Signs: Last Vital Signs Temp 99.2 F 08/08/22 11:10 Pulse 77 08/08/22 11:10 Resp 16 08/08/22 11:10 BP 105/72 08/08/22 11:10 Pulse Ox 97 08/08/22 11:10 O2 Del Method Oxymask 08/08/22 11:10 O2 Flow Rate 6 08/08/22 11:10 FiO2 30 08/08/22 07:48 Oxygen Flow Rate 13 08/03/22 23:30 BMI result Body Mass Index 16.4 GENERAL APPEARANCE: in no acute distress, on supplemental oxygen, ill-appearing NECK: no carotid bruit, no significant jugular venous distention. Positive hepatojugular reflux SKIN: no suspicious lesions, warm and dry. HEART: no murmurs, regular rate and rhythm. LUNGS: Left-sided crackles anterior ABDOMEN: soft, nontender. EXTREMITIES: no edema. PERIPHERAL PULSES: equal. NEUROLOGIC: Demented. Unable to follow simple commands. Oriented to self. Objective Labs and Meds 08/08/22 06:01 08/08/22 06:01 Lab results: Laboratory Results - last 24 hr 08/07/22 08/07/22 08/07/22 17:54 19:04 19:44 WBC RBC Hgb Hct MCV MCH MCHC RDW Plt Count MPV Immature Gran % (Auto) Neut % (Auto) Lymph % (Auto) Snyder % (Auto) Eos % (Auto) Baso % (Auto) Lymph # (Auto) Snyder # (Auto) Eos # (Auto) Baso # (Auto) Abs Immat Gran (auto) Absolute Neuts (auto) Absolute Nucleated RBC Nucleated RBC % (auto) O2 Saturation 89.0 ABG pH at Pt Temp 7.42 ABG pCO2 at Pt Temp 39 ABG pO2 at Pt Temp 69 L ABG HCO3 25 ABG Base Excess (Actual) 1.4 Sodium Potassium Chloride Carbon Dioxide Anion Gap BUN Creatinine Estim Creat Clear Calc Estimated GFR Fasting Glucose Calcium Total Bilirubin AST ALT Alkaline Phosphatase Troponin I High Sens B-Natriuretic Peptide 3875 H Total Protein Albumin Random Vancomycin 14.9 L 08/07/22 08/08/22 08/08/22 19:44 06:01 06:01 WBC 11.2 H RBC 3.20 L Hgb 9.6 L Hct 30.3 L MCV 94.7 MCH 30.0 MCHC 31.7 RDW 13.1 Plt Count 237 MPV 12.1 Immature Gran % (Auto) 1.0 H Neut % (Auto) 84.2 H Lymph % (Auto) 11.2 L Snyder % (Auto) 3.4 Eos % (Auto) 0.0 Baso % (Auto) 0.2 Lymph # (Auto) 1.3 Snyder # (Auto) 0.4 Eos # (Auto) 0.0 Baso # (Auto) 0.0 Abs Immat Gran (auto) 0.11 H Absolute Neuts (auto) 9.5 H Absolute Nucleated RBC 0.000 Nucleated RBC % (auto) 0.0 O2 Saturation ABG pH at Pt Temp ABG pCO2 at Pt Temp ABG pO2 at Pt Temp ABG HCO3 ABG Base Excess (Actual) Sodium 150 H Potassium 3.3 Chloride 116 H Carbon Dioxide 25 Anion Gap 12 BUN 19 H Creatinine 0.70 Estim Creat Clear Calc 65.9 Estimated GFR > 60 Fasting Glucose 119 H Calcium 8.2 L Total Bilirubin 0.6 AST 31 ALT 72 H Alkaline Phosphatase 89 Troponin I High Sens 234.7 H* D B-Natriuretic Peptide Total Protein 5.2 L Albumin 2.7 L Random Vancomycin 08/08/22 06:01 WBC RBC Hgb Hct MCV MCH MCHC RDW Plt Count MPV Immature Gran % (Auto) Neut % (Auto) Lymph % (Auto) Snyder % (Auto) Eos % (Auto) Baso % (Auto) Lymph # (Auto) Snyder # (Auto) Eos # (Auto) Baso # (Auto) Abs Immat Gran (auto) Absolute Neuts (auto) Absolute Nucleated RBC Nucleated RBC % (auto) O2 Saturation ABG pH at Pt Temp ABG pCO2 at Pt Temp ABG pO2 at Pt Temp ABG HCO3 ABG Base Excess (Actual) Sodium Potassium Chloride Carbon Dioxide Anion Gap BUN Creatinine Estim Creat Clear Calc Estimated GFR Fasting Glucose Calcium Total Bilirubin AST ALT Alkaline Phosphatase Troponin I High Sens 212.1 H* B-Natriuretic Peptide Total Protein Albumin Random Vancomycin Imaging Radiologist's impression: Impressions Chest X-Ray 08/07/22 19:33 IMPRESSION: Worsening bilateral multilobar airspace disease and small bilateral pleural effusions. Differential would include pneumonia/ARDS and CHF. Assessment and Plan (1) Pneumonia: Status: Acute (2) Respiratory failure: Status: Acute Plan 57-year-old female with dementia. No history is possible from the patient. She developed worsening shortness of breath on background of pneumonia. Chest x-ray showing bilateral infiltrates with differential of CHF versus ARDS. She has some pleural effusions and has elevated BNP level was so I think there is definitely some congestive heart failure. Agree with IV diuretics with close I's and o's monitoring. If she is in inactive balance and a chest x-ray can be repeated to see if the infiltrates are improving. If chest x-ray improved significantly then this is likely all heart failure otherwise there is some element of ARDS present too. She is on antibiotics and steroids. She has mildly elevated troponin levels in setting of hypoxia but also has some T-wave changes on the EKG. Agree with checking echocardiogram. We will follow along with you. Thank you for allowing me to participate in the care of your patient. Please feel free to contact me if you have any questions. Time Spent With Patient Time: Total time managing care of this patient today ____ minutes. Procedures Date of Service Date of Service: 08/08/22
--- NOTE | 2022-08-08 14:15 | P.PNIM_ITS ---
Subjective Subjective Date of Service: 08/08/22 Interval History: Evidence of overnight noted. More alert today. Review of Systems Unable to obtain Physical Exam Vital Signs: Vital Signs: Last Vital Signs Temp 99.2 F 08/08/22 11:10 Pulse 77 08/08/22 11:10 Resp 16 08/08/22 11:10 BP 105/72 08/08/22 11:10 Pulse Ox 97 08/08/22 11:10 O2 Del Method Oxymask 08/08/22 11:10 O2 Flow Rate 6 08/08/22 11:10 FiO2 30 08/08/22 07:48 Oxygen Flow Rate 13 08/03/22 23:30 BMI result Body Mass Index 16.4 Const: Other: Awake/nonverbal HEENT: Other: Mucous membranes dry Resp: Other: Mild left-sided crackles Cardio: Other: No S4; positive S1-S2; no S3 murmurs rubs or gallops GI: Other: Soft nontender nondistended normoactive bowel sounds Extrem: Other: No edema bilaterally Objective Data Active Medications Acetaminophen (Acetaminophen 325 Mg Tablet) 650 mg PO Q6H PRN PRN Reason: Pain, Mild (Pain Scale 1-3) Docusate Sodium (Docusate Sodium 100 Mg Capsule) 100 mg PO DAILY PRN PRN Reason: Constipation Enoxaparin Sodium (Enoxaparin Sodium 40 Mg/0.4 Ml Syringe) 40 mg SUBCUT Q24H [facility] Last Admin: 08/08/22 05:47 Dose: 40 mg Documented By: CARRIE Furosemide (Furosemide 40 Mg/4 Ml Vial) 40 mg IVPUSH DAILY [facility]; Protocol Last Admin: 08/08/22 07:38 Dose: 40 mg Documented By: JELLY Ceftriaxone Sodium 1 gm/ (Sodium Chloride) 50 mls @ 100 mls/hr IV Q24H [facility] Last Infusion: 08/08/22 06:18 Dose: 0 mls/hr Documented By: CARRIE Azithromycin 500 mg/ Sodium (Chloride) 250 mls @ 125 mls/hr IV Q24H [facility] Last Infusion: 08/08/22 11:50 Dose: 0 mls/hr Documented By: LUI Norepinephrine Bitartrate (Levophed) 8 mg in 250 mls @ 0 mls/hr IV .Q0M [facility]; Protocol Last Titration: 08/08/22 11:06 Dose: 0 mcg/kg/min, 0 mls/hr Documented By: LUI Piperacillin Sod/Tazobactam (Sod 4.5 gm/ Sodium Chloride) 100 mls @ 200 mls/hr IV Q6H [facility] Last Infusion: 08/08/22 11:50 Dose: 0 mls/hr Documented By: LUI Vancomycin HCl 1,000 mg/ (Sodium Chloride) 270 mls @ 270 mls/hr IV Q12H [facility] Last Infusion: 08/08/22 11:04 Dose: 0 mls/hr Documented By: LUI Methylprednisolone Sodium Succinate (Methylprednisolone Sod Succ 125 Mg/2 Ml Vial) 60 mg IVPUSH Q6H [facility] Last Admin: 08/08/22 09:22 Dose: 60 mg Documented By: JELLY Ondansetron HCl (Ondansetron Hcl 4 Mg/2 Ml Vial) 4 mg IVPUSH Q8H PRN PRN Reason: Nausea and Vomiting Pharmacy Consult (Consult Rx Vancomycin Dosing) 1 each MISCELLANE DAILY PRN PRN Reason: Consult order Sodium Chloride (0.9 % Sodium Chloride Flush 3 Ml Syringe) 3 ml IVFLUSH QSHIFT [facility] Last Admin: 08/08/22 07:46 Dose: 3 ml Documented By: JELLY Labs 08/08/22 06:01 08/08/22 06:01 Labs: Laboratory Results - last 24 hr 08/07/22 08/07/22 08/07/22 17:54 19:04 19:44 MCV MCH MCHC RDW Plt Count MPV Immature Gran % (Auto) Neut % (Auto) Lymph % (Auto) [place] % (Auto) Eos % (Auto) Baso % (Auto) Lymph # (Auto) [place] # (Auto) Eos # (Auto) Baso # (Auto) Abs Immat Gran (auto) Absolute Neuts (auto) Absolute Nucleated RBC Nucleated RBC % (auto) O2 Saturation 89.0 ABG pH at Pt Temp 7.42 ABG pCO2 at Pt Temp 39 ABG pO2 at Pt Temp 69 L ABG HCO3 25 ABG Base Excess (Actual) 1.4 Anion Gap Estim Creat Clear Calc Estimated GFR Fasting Glucose Calcium Total Bilirubin AST ALT Alkaline Phosphatase Troponin I High Sens B-Natriuretic Peptide 3875 H Total Protein Albumin Random Vancomycin 14.9 L 08/07/22 08/08/22 08/08/22 19:44 06:01 06:01 MCV 94.7 MCH 30.0 MCHC 31.7 RDW 13.1 Plt Count 237 MPV 12.1 Immature Gran % (Auto) 1.0 H Neut % (Auto) 84.2 H Lymph % (Auto) 11.2 L [place] % (Auto) 3.4 Eos % (Auto) 0.0 Baso % (Auto) 0.2 Lymph # (Auto) 1.3 [place] # (Auto) 0.4 Eos # (Auto) 0.0 Baso # (Auto) 0.0 Abs Immat Gran (auto) 0.11 H Absolute Neuts (auto) 9.5 H Absolute Nucleated RBC 0.000 Nucleated RBC % (auto) 0.0 O2 Saturation ABG pH at Pt Temp ABG pCO2 at Pt Temp ABG pO2 at Pt Temp ABG HCO3 ABG Base Excess (Actual) Anion Gap 12 Estim Creat Clear Calc 65.9 Estimated GFR > 60 Fasting Glucose 119 H Calcium 8.2 L Total Bilirubin 0.6 AST 31 ALT 72 H Alkaline Phosphatase 89 Troponin I High Sens 234.7 H* D B-Natriuretic Peptide Total Protein 5.2 L Albumin 2.7 L Random Vancomycin 08/08/22 06:01 MCV MCH MCHC RDW Plt Count MPV Immature Gran % (Auto) Neut % (Auto) Lymph % (Auto) [place] % (Auto) Eos % (Auto) Baso % (Auto) Lymph # (Auto) [place] # (Auto) Eos # (Auto) Baso # (Auto) Abs Immat Gran (auto) Absolute Neuts (auto) Absolute Nucleated RBC Nucleated RBC % (auto) O2 Saturation ABG pH at Pt Temp ABG pCO2 at Pt Temp ABG pO2 at Pt Temp ABG HCO3 ABG Base Excess (Actual) Anion Gap Estim Creat Clear Calc Estimated GFR Fasting Glucose Calcium Total Bilirubin AST ALT Alkaline Phosphatase Troponin I High Sens 212.1 H* B-Natriuretic Peptide Total Protein Albumin Random Vancomycin Assessment and Plan (1) Septic shock: Status: Acute (2) Pneumonia: Status: Acute (3) Hypernatremia: Status: Acute Plan 57-year-old female past medical history of dementia presents the hospital after visiting nurse found her to be sleeping on an air mattress that had no air it for several days and have multiple pressure ulcers found to have acute pneumonia 1.Septic shock secondary to Community-acquired pneumonia -vanco/Zosyn (4) -hypotension resolved; shock resolved -cultures negative times 48 hours 2.Hypernatremia -calculated 2 L free water deficit... Free water repletion held secondary to in question CHF -D5W at 125 an hour... If elevated in a -follow renals/divalents 3.Hypokalemia -IV potassium -check magnesium potassium in a.m. 4.Pressure ulcers -present on admission -wound care consult Janeth Full Code Requires ongoing hospitalization to replete free water deficit and to maintain electrolytes; requires IV antibiotics to treat septic shock secondary to commun ity-acquired pneumonia Time Spent With Patient Time: Total time managing care of this patient today ____ minutes. Quality Stroke Does the patient have a stroke diagnosis?: No VTE Prior VTE?: No VTE Risk Level:: Medical - moderate - high VTE Device Contraindication: Treatment Not Indicated VTE Drug Contraindication: N/A - Med Ordered
--- NOTE | 2022-08-08 15:25 | MHC.CM.PN ---
Call placed to pt's daughter re: getting the patient a hospital bed at home. Gave her number for [facility]. She states she will call to also rent bed.
--- NOTE | 2022-08-08 17:01 | MHC.SLORD ---
Speech Language Pathology Order Status: Pt provided with oral care via mouthwash and swab. Oral moisturizer applied. Pt currently on pureed diet (NDD1) with thin liquids. [employer]IODICALS LIBRARY ASSISTANT will continue to follow during hospitalization.
[2022-08-08 19:40] LABS: Vancomycin Random 17.6 mcg/mL (15-20)
--- NOTE | 2022-08-08 19:56 | HE.PHANOTE ---
Vancomycin Dosing Addendum Patients level came back at 17.6. RXinsight shows that patient was to plateau at 15 however it does seem level is rising. AUC is within therapeutic goal. Will decrease to 750 mg Q12H and get level tomorrow 08/09 @1800 to assess safety vs efficacy. Predicted AUC 430 mg/L/hr. Predicted trough 11.8, however patients level are running higher than predicted. I anticipate a trough of 14-15.
[2022-08-08] MEDS: vancomycin HCL 750 MG in 0.9 % Sodium Chloride 250 ML 265 MG IV (21:07)
[2022-08-09] MEDS: methylPREDNISolone Sod Succ 125 MG/2 ML VIAL 60 MG IVPUSH ×4 (02:52→21:09)
[2022-08-09 03:04] VITALS: BP 130/88; PULSE 70; RESP 18; TEMP 37.1; O2SAT 98
[2022-08-09] MEDS: Piperacillin Sodium/Tazobactam 4.5 GM in 0.9 % Sodium Chloride 100 ML IV ×4 (04:03→22:02)
[2022-08-09] MEDS: cefTRIAXone sodium 1 GM in 0.9 % Sodium Chloride 50 ML IV (05:54)
[2022-08-09] MEDS: Enoxaparin Sodium 40 MG/0.4 ML SYRINGE SUBCUT (05:54)
[2022-08-09 07:35] LABS: Creatinine Clr Calc Pharmacy 65.9; Estimated Glomerular Filt Rate > 60
[2022-08-09 07:36] VITALS: BP 140/92; PULSE 69; RESP 18; TEMP 36.7; O2SAT 97
[2022-08-09] MEDS: Azithromycin 500 MG in 0.9 % Sodium Chloride 250 ML 125 MG IV (08:58)
[2022-08-09] MEDS: vancomycin HCL 750 MG in 0.9 % Sodium Chloride 250 ML 265 MG IV ×2 (08:59→21:09)
[2022-08-09] MEDS: Furosemide 40 MG/4 ML VIAL IVPUSH (08:59)
[2022-08-09] MEDS: 0.9 % Sodium Chloride Flush 3 ML SYRINGE IVFLUSH (09:00)
--- NOTE | 2022-08-09 11:14 | PM.PNCARD ---
Subjective Subjective Date of Service: 08/09/22 Interval history: Seen and examined at bedside. Denying symptoms but has dementia. Physical Exam Vital Signs: Last Vital Signs Temp 98.1 F 08/09/22 07:36 Pulse 69 08/09/22 07:36 Resp 18 08/09/22 07:36 BP 140/92 H 08/09/22 07:36 Pulse Ox 97 08/09/22 07:36 O2 Del Method Oxymask 08/09/22 07:36 O2 Flow Rate 3 08/09/22 07:36 FiO2 30 08/08/22 07:48 Oxygen Flow Rate 13 08/03/22 23:30 BMI result Body Mass Index 16.4 GENERAL APPEARANCE: in no acute distress, on supplemental oxygen, ill-appearing NECK: no carotid bruit, no significant jugular venous distention. SKIN: no suspicious lesions, warm and dry. HEART: no murmurs, regular rate and rhythm. LUNGS: Left-sided crackles anterior ABDOMEN: soft, nontender. EXTREMITIES: no edema. PERIPHERAL PULSES: equal. NEUROLOGIC: Demented. Unable to follow simple commands. Oriented to self. Objective Labs and Meds 08/08/22 06:01 08/09/22 06:48 Lab results: Laboratory Results - last 24 hr 08/08/22 08/09/22 18:20 06:48 Creatinine 0.70 Estim Creat Clear Calc 65.9 Estimated GFR > 60 Random Vancomycin 17.6 Progress Note: A&P Assessment and plan (1) Respiratory failure: Status: Acute (2) Cardiomyopathy: Status: Acute Plan 57 female with cardiomyopathy with EF 25-30%. She has dementia and presented with PNA and developed worsening hypoxia due to CHF. Can be changed to PO Lasix. Adding Entresto. Stop HCTZ. Time Spent With Patient Time: Total time managing care of this patient today ____ minutes. Progress Note: Quality Stroke Does the patient have a stroke diagnosis?: No Procedures Date of Service Date of Service: 08/09/22
[2022-08-09 11:26] VITALS: BP 142/94; PULSE 68; RESP 18; TEMP 36.5; O2SAT 97
[2022-08-09] MEDS: Sacubitril/Valsartan 24/26 1 TAB TABLET PO ×2 (11:46→21:14)
--- NOTE | 2022-08-09 12:24 | P.PNIM_ITS ---
Subjective Subjective Date of Service: 08/09/22 Interval History: More alert again today. Able to tolerate weaning of O2 Review of Systems Unable to obtain Physical Exam Vital Signs: Vital Signs: Last Vital Signs Temp 97.7 F 08/09/22 11:26 Pulse 68 08/09/22 11:26 Resp 18 08/09/22 11:26 BP 142/94 H 08/09/22 11:26 Pulse Ox 97 08/09/22 11:26 O2 Del Method Oxymask 08/09/22 11:26 O2 Flow Rate 3 08/09/22 11:26 FiO2 30 08/08/22 07:48 Oxygen Flow Rate 13 08/03/22 23:30 BMI result Body Mass Index 16.4 Const: Other: Awake/nonverbal HEENT: Other: Mucous membranes dry Resp: Other: Mild left-sided crackles Cardio: Other: No S4; positive S1-S2; no S3 murmurs rubs or gallops GI: Other: Soft nontender nondistended normoactive bowel sounds Extrem: Other: No edema bilaterally Objective Data Active Medications Acetaminophen (Acetaminophen 325 Mg Tablet) 650 mg PO Q6H PRN PRN Reason: Pain, Mild (Pain Scale 1-3) Docusate Sodium (Docusate Sodium 100 Mg Capsule) 100 mg PO DAILY PRN PRN Reason: Constipation Enoxaparin Sodium (Enoxaparin Sodium 40 Mg/0.4 Ml Syringe) 40 mg SUBCUT Q24H [facility] Last Admin: 08/09/22 05:54 Dose: 40 mg Documented By: ORALIA Furosemide (Furosemide 40 Mg/4 Ml Vial) 40 mg IVPUSH DAILY [facility]; Protocol Last Admin: 08/09/22 08:59 Dose: 40 mg Documented By: TIKI Piperacillin Sod/Tazobactam (Sod 4.5 gm/ Sodium Chloride) 100 mls @ 200 mls/hr IV Q6H [facility] Last Infusion: 08/09/22 11:38 Dose: 0 mls/hr Documented By: TIKI Vancomycin HCl 750 mg/ Sodium (Chloride) 265 mls @ 265 mls/hr IV Q12H [facility] Last Infusion: 08/09/22 09:59 Dose: 0 mls/hr Documented By: TIKI Methylprednisolone Sodium Succinate (Methylprednisolone Sod Succ 125 Mg/2 Ml Via l) 60 mg IVPUSH Q6H [facility] Last Admin: 08/09/22 09:00 Dose: 60 mg Documented By: TIKI Ondansetron HCl (Ondansetron Hcl 4 Mg/2 Ml Vial) 4 mg IVPUSH Q8H PRN PRN Reason: Nausea and Vomiting Pharmacy Consult (Consult Rx Vancomycin Dosing) 1 each MISCELLANE DAILY PRN PRN Reason: Consult order Sacubitril/Valsartan (Sacubitril/Valsartan 1 Tab Tablet) 1 tab PO BID [facility]; Protocol Last Admin: 08/09/22 11:46 Dose: 1 tab Documented By: TIKI Sodium Chloride (0.9 % Sodium Chloride Flush 3 Ml Syringe) 3 ml IVFLUSH QSHIFT [facility] Last Admin: 08/09/22 09:00 Dose: 3 ml Documented By: TIKI Labs 08/08/22 06:01 08/09/22 06:48 Labs: Laboratory Results - last 24 hr 08/08/22 08/09/22 18:20 06:48 Estim Creat Clear Calc 65.9 Estimated GFR > 60 Random Vancomycin 17.6 Microbiology Microbiology Results: Microbiology 08/04/22 00:18 Blood Culture - Final Blood - Venous No growth after 5 days. 08/04/22 00:18 Blood Culture - Final Blood - Venous No growth after 5 days. Assessment and Plan (1) Septic shock: Status: Acute (2) Hypernatremia: Status: Acute (3) Pneumonia: Status: Acute Plan 57-year-old female past medical history of dementia presents the hospital after visiting nurse found her to be sleeping on an air mattress that had no air it for several days and have multiple pressure ulcers found to have acute pneumonia 1.Septic shock secondary to Community-acquired pneumonia -vanco/Zosyn (5) -hypotension resolved; shock resolved -cultures negative times 48 hours 2.Hypernatremia -calculated 2 L free water deficit... Free water repletion held secondary to in question CHF -assess need for free water repletion in a.m. -follow renals/divalents 3.Hypokalemia -IV potassium -check magnesium potassium in a.m. 4.Pressure ulcers -present on admission -wound care consult Lovenox Full Code Requires ongoing hospitalization to replete free water deficit and to maintain electrolytes; requires IV antibiotics to treat septic shock secondary to community-acquired pneumonia Time Spent With Patient Time: Total time managing care of this patient today ____ minutes. Quality Stroke Does the patient have a stroke diagnosis?: No VTE Prior VTE?: No VTE Risk Level:: Medical - moderate - high VTE Device Contraindication: Treatment Not Indicated VTE Drug Contraindication: N/A - Med Ordered
[2022-08-09 15:23] VITALS: BP 145/88; PULSE 65; RESP 14; TEMP 36.9; O2SAT 94
[2022-08-09 18:36] LABS: Vancomycin Random 17.7 mcg/mL (15-20)
--- NOTE | 2022-08-09 18:49 | HE.PHANOTE ---
Vancomycin Dosing Level 17.7 today. Will continue current regimen. Renal function seems stable. Next Level 08/10 @ 1800. Riccardo PinonD
[2022-08-09 19:17] VITALS: BP 140/89; PULSE 65; RESP 14; TEMP 36.2; O2SAT 93
[2022-08-10] VITALS (7 sets, daily range): BP systolic 140–178; BP diastolic 72–96; PULSE 47–107; RESP 14–20; TEMP 36.2–37.2; O2SAT 93–96
[2022-08-10] MEDS: 0.9 % Sodium Chloride Flush 3 ML SYRINGE IVFLUSH ×4 (00:02→21:42)
[2022-08-10] MEDS: methylPREDNISolone Sod Succ 125 MG/2 ML VIAL 60 MG IVPUSH ×4 (02:16→19:31)
[2022-08-10] MEDS: Piperacillin Sodium/Tazobactam 4.5 GM in 0.9 % Sodium Chloride 100 ML IV ×4 (04:09→21:41)
--- NOTE | 2022-08-10 05:03 | PC.NURSE ---
Patient sustaining heart rate 40's while asleep, occasionally in 30's with low 35. Easily arousable and when awoken, rate increases to 60's. confused, minimally verbal, cannot assess symptoms. MD Mora notified via [employer].
[2022-08-10] MEDS: Enoxaparin Sodium 40 MG/0.4 ML SYRINGE SUBCUT (06:30)
[2022-08-10] MEDS: Sacubitril/Valsartan 24/26 1 TAB TABLET PO ×2 (09:20→21:41)
[2022-08-10] MEDS: Furosemide 40 MG TABLET PO (09:20)
[2022-08-10] MEDS: vancomycin HCL 750 MG in 0.9 % Sodium Chloride 250 ML 265 MG IV (09:21)
[2022-08-10 09:31] LABS: Creatinine Clr Calc Pharmacy 67.8; Estimated Glomerular Filt Rate > 60
--- NOTE | 2022-08-10 11:17 | PM.PNCARD ---
Subjective Subjective Date of Service: 08/10/22 Interval history: Seen and examined at bedside. Looks comfortable. She has dementia. Physical Exam Vital Signs: Last Vital Signs Temp 97.2 F 08/10/22 07:12 Pulse 47 L 08/10/22 07:12 Resp 20 08/10/22 07:12 BP 166/96 H 08/10/22 07:12 Pulse Ox 94 08/10/22 07:12 O2 Del Method Room Air 08/10/22 07:12 O2 Flow Rate 3 08/09/22 11:26 FiO2 30 08/08/22 07:48 Oxygen Flow Rate 13 08/03/22 23:30 BMI result Body Mass Index 16.4 GENERAL APPEARANCE: in no acute distress, of supplemental oxygen. NECK: no carotid bruit, no significant jugular venous distention. Positive better jugular flux. SKIN: no suspicious lesions, warm and dry. HEART: no murmurs, regular rate and rhythm. LUNGS: Left-sided crackles anterior ABDOMEN: soft, nontender. EXTREMITIES: no edema. PERIPHERAL PULSES: equal. NEUROLOGIC: Demented. Unable to follow simple commands. Oriented to self. Objective Labs and Meds 08/08/22 06:01 08/10/22 09:00 Lab results: Laboratory Results - last 24 hr 08/09/22 08/10/22 18:00 09:00 Creatinine 0.68 Estim Creat Clear Calc 67.8 Estimated GFR > 60 Random Vancomycin 17.7 Progress Note: A&P Assessment and plan (1) Cardiomyopathy: Status: Acute (2) Respiratory failure: Status: Acute Plan [age] female with respiratory failure which was and she thought to be pneumonia and after receiving IV fluids she developed worsening shortness of breath and hypoxia. Chest x-ray showed bilateral infiltrates and pleural effusions. Echocardiography has shown moderate to severe LV dysfunction. She has been diuresed and clinically improving. Continue Lasix at the same dose. Adding spironolactone 25 mg daily along with Coreg 3.125 mg twice a day. She is hypertensive. She is already on Entresto. Recommend doing a portable chest x-ray to see if the lung infiltrates are improving. She is on antibiotics for pneumonia also. Thank you for allowing me to participate in the care of your patient. Please feel free to contact me if you have any questions. Time Spent With Patient Time: Total time managing care of this patient today ____ minutes. Progress Note: Quality Stroke Does the patient have a stroke diagnosis?: No Procedures Date of Service Date of Service: 08/10/22
[2022-08-10] MEDS: Spironolactone 25 MG TABLET PO (11:53)
--- NOTE | 2022-08-10 13:11 | P.PNIM_ITS ---
Subjective Subjective Date of Service: 08/10/22 Interval History: More alert today. Successfully weaned off O2 satting well on room air Review of Systems Unable to obtain Physical Exam Vital Signs: Vital Signs: Last Vital Signs Temp 98.9 F 08/10/22 11:26 Pulse 57 08/10/22 11:26 Resp 16 08/10/22 11:26 BP 144/85 H 08/10/22 11:26 Pulse Ox 95 08/10/22 11:26 O2 Del Method Room Air 08/10/22 11:26 O2 Flow Rate 3 08/09/22 11:26 FiO2 30 08/08/22 07:48 Oxygen Flow Rate 13 08/03/22 23:30 BMI result Body Mass Index 16.4 Const: Other: Awake/nonverbal HEENT: Other: Mucous membranes dry Resp: Other: Mild left-sided crackles Cardio: Other: No S4; positive S1-S2; no S3 murmurs rubs or gallops GI: Other: Soft nontender nondistended normoactive bowel sounds Extrem: Other: No edema bilaterally Objective Data Active Medications Acetaminophen (Acetaminophen 325 Mg Tablet) 650 mg PO Q6H PRN PRN Reason: Pain, Mild (Pain Scale 1-3) Carvedilol (Carvedilol 3.125 Mg Tablet) 3.125 mg PO BID [facility]; Protocol Docusate Sodium (Docusate Sodium 100 Mg Capsule) 100 mg PO DAILY PRN PRN Reason: Constipation Enoxaparin Sodium (Enoxaparin Sodium 40 Mg/0.4 Ml Syringe) 40 mg SUBCUT Q24H [facility] Last Admin: 08/10/22 06:30 Dose: 40 mg Documented By: DEANNA Furosemide (Furosemide 40 Mg Tablet) 40 mg PO DAILY [facility]; Protocol Last Admin: 08/10/22 09:20 Dose: 40 mg Documented By: TIKI Piperacillin Sod/Tazobactam (Sod 4.5 gm/ Sodium Chloride) 100 mls @ 200 mls/hr IV Q6H [facility] Last Infusion: 08/10/22 09:55 Dose: 0 mls/hr Documented By: TIKI Vancomycin HCl 750 mg/ Sodium (Chloride) 265 mls @ 265 mls/hr IV Q12H [facility] Last Infusion: 08/10/22 10:21 Dose: 0 mls/hr Documented By: TIKI Methylprednisolone Sodium Succinate (Methylprednisolone Sod Succ 125 Mg/2 Ml Vial) 60 mg IVPUSH Q6H [facility] Last Admin: 08/10/22 09:27 Dose: 60 mg Documented By: TIKI Ondansetron HCl (Ondansetron Hcl 4 Mg/2 Ml Vial) 4 mg IVPUSH Q8H PRN PRN Reason: Nausea and Vomiting Pharmacy Consult (Consult Rx Vancomycin Dosing) 1 each MISCELLANE DAILY PRN PRN Reason: Consult order Sacubitril/Valsartan (Sacubitril/Valsartan 1 Tab Tablet) 1 tab PO BID [facility]; Protocol Last Admin: 08/10/22 09:20 Dose: 1 tab Documented By: TIKI Sodium Chloride (0.9 % Sodium Chloride Flush 3 Ml Syringe) 3 ml IVFLUSH QSHIFT [facility] Last Admin: 08/10/22 09:27 Dose: 3 ml Documented By: TIKI Spironolactone (Spironolactone 25 Mg Tablet) 25 mg PO DAILY [facility]; Protocol Last Admin: 08/10/22 11:53 Dose: 25 mg Documented By: TIKI Labs 08/08/22 06:01 08/10/22 09:00 Labs: Laboratory Results - last 24 hr 08/09/22 08/10/22 18:00 09:00 Estim Creat Clear Calc 67.8 Estimated GFR > 60 Random Vancomycin 17.7 Assessment and Plan (1) Septic shock: Status: Acute (2) Pneumonia: Status: Acute (3) Hypernatremia: Status: Acute Plan 57-year-old female past medical history of dementia presents the hospital after visiting nurse found her to be sleeping on an air mattress that had no air it for several days and have multiple pressure ulcers found to have acute pneumonia 1.Septic shock secondary to Community-acquired pneumonia -vanco/Zosyn (6) -hypotension resolved; shock resolved -cultures negative times 48 hours 2.Hypernatremia -improved -follow renals/divalents in a.m. 3.Hypokalemia -IV potassium completed -check magnesium potassium in a.m. 4.Pressure ulcers -present on admission -wound care consult Lovenox Full Code Requires ongoing hospitalization to replete free water deficit and to maintain electrolytes; requires IV antibiotics to treat septic shock secondary to community-acquired pneumonia Time Spent With Patient Time: Total time managing care of this patient today ____ minutes. Quality Stroke Does the patient have a stroke diagnosis?: No VTE Prior VTE?: No VTE Risk Level:: Medical - moderate - high VTE Device Contraindication: Treatment Not Indicated VTE Drug Contraindication: N/A - Med Ordered
[2022-08-10 18:44] LABS: Vancomycin Trough 13.8 mcg/mL (10.0-20.0)
--- NOTE | 2022-08-10 18:52 | HE.PHANOTE ---
Vancomyin Dosing Level dropped to 13.8 today. Renal function is stable. Will increase dose to vancomycin 1000 mg Q12H. Expected AUC 564 with a trough of 15.8. Next level 08/11 @ 1800. Riccardo PinonD
[2022-08-10] MEDS: vancomycin HCL 1,000 MG in 0.9 % Sodium Chloride 250 ML 270 MG IV (19:31)
[2022-08-11] MEDS: methylPREDNISolone Sod Succ 125 MG/2 ML VIAL 60 MG IVPUSH ×2 (02:17→07:54)
[2022-08-11 03:45] VITALS: BP 144/74; PULSE 57; RESP 18; TEMP 36.3; O2SAT 94
[2022-08-11] MEDS: Piperacillin Sodium/Tazobactam 4.5 GM in 0.9 % Sodium Chloride 100 ML IV ×2 (04:58→08:32)
[2022-08-11] MEDS: Enoxaparin Sodium 40 MG/0.4 ML SYRINGE SUBCUT (06:15)
[2022-08-11 06:58] LABS: Creatinine Clr Calc Pharmacy 67.8; Estimated Glomerular Filt Rate > 60
[2022-08-11] MEDS: Furosemide 40 MG TABLET PO (07:54)
[2022-08-11] MEDS: Spironolactone 25 MG TABLET PO (07:54)
[2022-08-11] MEDS: Sacubitril/Valsartan 24/26 1 TAB TABLET PO ×2 (07:54→21:21)
[2022-08-11] MEDS: carvediloL 3.125 MG TABLET PO ×2 (07:54→21:21)
[2022-08-11 07:55] VITALS: BP 165/86; PULSE 49; RESP 20; TEMP 36.1; O2SAT 96
[2022-08-11] MEDS: 0.9 % Sodium Chloride Flush 3 ML SYRINGE IVFLUSH ×2 (07:55→15:50)
[2022-08-11] MEDS: vancomycin HCL 1,000 MG in 0.9 % Sodium Chloride 250 ML 270 MG IV (07:55)
[2022-08-11] MEDS: predniSONE 20 MG TABLET 40 MG PO ×2 (08:31→15:50)
[2022-08-11 08:52] LABS: Anion Gap 14 (12-20); Blood Urea Nitrogen 30 mg/dL (9-16); Calcium 8.2 mg/dL (8.4-10.2); Carbon Dioxide 32 mmol/L (22-29); Chloride 112 mmol/L (96-108); Glucose Random 105 mg/dL (60-115); Magnesium 1.7 mg/dL (1.6-2.6); Potassium 3.1 mmol/L (3.3-5.1); Sodium 155 mmol/L (135-145)
[2022-08-11 09:06] LABS: Procalcitonin 0.02 ng/mL
--- NOTE | 2022-08-11 10:37 | MHC.CM.PN ---
EMR reviewed and per MD rounds, pt not medically cleared for D/C due to the continued need for electrolyte monitoring. CM will continue to follow.
--- NOTE | 2022-08-11 10:54 | PM.PNCARD ---
Subjective Subjective Date of Service: 08/11/22 Principal diagnosis: Cardiomyopathy Interval history: Patient offers no symptoms. Appears his comfortable and not short of breath. Blood pressure is still elevated. Getting all her medications. Review of Systems Review of Systems Yes Unobtainable due to mental status Physical Exam Vital Signs: Last Vital Signs Temp 97.0 F 08/11/22 07:55 Pulse 49 L 08/11/22 07:55 Resp 20 08/11/22 07:55 BP 165/86 H 08/11/22 07:55 Pulse Ox 96 08/11/22 07:55 O2 Del Method Room Air 08/11/22 07:55 O2 Flow Rate 3 08/09/22 11:26 FiO2 30 08/08/22 07:48 Oxygen Flow Rate 13 08/03/22 23:30 BMI result Body Mass Index 16.4 GENERAL APPEARANCE: in no acute distress, of supplemental oxygen. NECK: no carotid bruit, no significant jugular venous distention. Positive better jugular flux. SKIN: no suspicious lesions, warm and dry. HEART: no murmurs, regular rate and rhythm. LUNGS: Left-sided crackles anterior ABDOMEN: soft, nontender. EXTREMITIES: no edema. PERIPHERAL PULSES: equal. NEUROLOGIC: Demented. Unable to follow simple commands. Oriented to self. Resp Effort & Inspection: decreased respiratory effort Auscultation: diminished lung sounds Objective Labs and Meds 08/08/22 06:01 08/11/22 06:22 Lab results: Laboratory Results - last 24 hr 08/10/22 08/11/22 18:24 06:22 Sodium 155 H Potassium 3.1 L Chloride 112 H Carbon Dioxide 32 H Anion Gap 14 BUN 30 H Creatinine 0.68 Estim Creat Clear Calc 67.8 Estimated GFR > 60 Random Glucose 105 Calcium 8.2 L Magnesium 1.7 Procalcitonin 0.02 Vancomycin Trough 13.8 Progress Note: A&P Assessment and plan (1) Cardiomyopathy: Status: Acute Assessment and Plan: Severe LV systolic dysfunction with unmanaged hypertension. Clinically does appear to be in severe heart failure at this point time. Appears to be comfortable. Would continue current diuretic regimen. Replace potassium to maintain potassium level above 4. Continue Aldactone. Maximize carvedilol as well as Entresto therapy. Given her advanced cognitive dysfunction not sure that any further workup required. Should discuss with next of kin about advanced directives. Will sign of the case at this point time. Thank you for allowing me to partake in her care Time Spent With Patient Time: Total time managing care of this patient today ____ minutes. Progress Note: Quality Stroke Does the patient have a stroke diagnosis?: No Procedures Date of Service Date of Service: 08/11/22
[2022-08-11 12:00] VITALS: BP 145/84; PULSE 55; RESP 20; TEMP 36.1; O2SAT 93
[2022-08-11] MEDS: Dextrose 5 % 1,000 ML 50 ML IVCONT (12:00)
[2022-08-11] MEDS: Potassium Chloride/H20 10 MEQ/100 ML PIGGYBACK 100 MEQ IV ×2 (12:24→13:15)
--- NOTE | 2022-08-11 13:54 | MHC.CLN ---
F/U PT IS SEVERELY MALNOURISHED SEE FULL CLINICAL NUTRITION ASSESSMENT DATED 08/05/22 PO INTAKE 100% DIET RX: PUREED-APPROPRIATE [employer] FOLLOWING FOR APPROPRIATE DIET CONSISTENCY PT RECEIVING ENSURE BID PROVIDES 700KCALS, 40G PROTEIN WITH 100% ACCEPTANCE IN ADDITION, PT RECEIVING KYUNG BID AND THRIVE ICE CREAM TO INCREASE KCALS FOR WOUND HEALING CONTINUE TO MONITOR PO INTAKE CLOSELY
--- NOTE | 2022-08-11 14:28 | HO.PM.IMPN ---
Subjective Subjective Date of Service: 08/11/22 Interval History: remains off O2 largely nonverbal Review of Systems Review of Systems: Yes Unobtainable due to mental status Physical Exam Vital Signs: Vital Signs: Last Vital Signs Temp 97.0 F 08/11/22 12:00 Pulse 55 08/11/22 12:00 Resp 20 08/11/22 12:00 BP 145/84 H 08/11/22 12:00 Pulse Ox 93 08/11/22 12:00 O2 Del Method Room Air 08/11/22 12:00 O2 Flow Rate 3 08/09/22 11:26 FiO2 30 08/08/22 07:48 Oxygen Flow Rate 13 08/03/22 23:30 BMI result Body Mass Index 16.4 Gen: cachectic HEENT: sclera anicteric, moist mucus membranes Neck: supple Lungs: clear to auscultation bilaterally Heart: regular rate and rhythm, no murmurs Abd: soft, non-tender, non-distended Ext: no edema Skin: warm/well-perfused Neuro: alert, moving all extremities Psych: impaired insight Objective Data Active Medications Acetaminophen (Acetaminophen 325 Mg Tablet) 650 mg PO Q6H PRN PRN Reason: Pain, Mild (Pain Scale 1-3) Carvedilol (Carvedilol 3.125 Mg Tablet) 3.125 mg PO BID [facility]; Protocol Last Admin: 08/11/22 07:54 Dose: 3.125 mg Documented By: LUI Docusate Sodium (Docusate Sodium 100 Mg Capsule) 100 mg PO DAILY PRN PRN Reason: Constipation Enoxaparin Sodium (Enoxaparin Sodium 40 Mg/0.4 Ml Syringe) 40 mg SUBCUT Q24H [facility] Last Admin: 08/11/22 06:15 Dose: 40 mg Documented By: CHUY Furosemide (Furosemide 40 Mg Tablet) 40 mg PO DAILY [facility]; Protocol Last Admin: 08/11/22 07:54 Dose: 40 mg Documented By: LUI Dextrose (D5w) 1,000 mls @ 50 mls/hr IVCONT .Q20H [facility] Last Admin: 08/11/22 12:00 Dose: 50 mls/hr Documented By: LUI Ondansetron HCl (Ondansetron Hcl 4 Mg/2 Ml Vial) 4 mg IVPUSH Q8H PRN PRN Reason: Nausea and Vomiting Prednisone (Prednisone 20 Mg Tablet) 40 mg PO [facility]; Taper Stop: 08/19/22 08:19 Last Admin: 08/11/22 08:31 Dose: 40 mg Documented By: LUI Sacubitril/Valsartan (Sacubitril/Valsartan 1 Tab Tablet) 1 tab PO BID [facility]; Protocol Last Admin: 08/11/22 07:54 Dose: 1 tab Documented By: LUI Sodium Chloride (0.9 % Sodium Chloride Flush 3 Ml Syringe) 3 ml IVFLUSH QSHIFT [facility] Last Admin: 08/11/22 07:55 Dose: 3 ml Documented By: LUI Spironolactone (Spironolactone 25 Mg Tablet) 25 mg PO DAILY [facility]; Protocol Last Admin: 08/11/22 07:54 Dose: 25 mg Documented By: LUI Labs 08/08/22 06:01 08/11/22 06:22 Labs: Laboratory Results - last 24 hr 08/10/22 08/11/22 18:24 06:22 Anion Gap 14 Estim Creat Clear Calc 67.8 Estimated GFR > 60 Random Glucose 105 Calcium 8.2 L Magnesium 1.7 Procalcitonin 0.02 Vancomycin Trough 13.8 Assessment and Plan (1) Septic shock: Status: Acute (2) Pneumonia: Status: Acute (3) Hypernatremia: Status: Acute Plan d#8 57yo F with advanced dementia found by visiting nurse to be on air mattress without air in it; found to have multiple pressure ulcers + PNA found to have severe LV systolic dysfunction # septic shock due to CAP - completed 7d of vanco + pip-angely, CXR improved, off O2, BCx negative hypotension resolved, afebrile- d/c ABX today - wean off steroids- has been on methylprednisolone 60 mg q6h. change to prednisone and taper over 8 days # acute HFrEF - continue spironolactone, Entresto, carvedilol, furosemide. appears euvolemic at this time. # hyperNa - approximately 1.2L free water deficit- replete IV over 24 hr and recheck BMP in AM # hypoK - replete, recheck in AM # pressure ulcers - Wound Care consultation # severe protein-calorie malnutrition - supplements ordered # VTE ppx: LMWH # dispo: plan eventually home with daughter In my clinical judgment, the patient requires continued inpatient hospitalization for the following reasons: IV free water for dehydration/hypernatremia Time Spent With Patient Time: Total time managing care of this patient today __40__ minutes. Quality Stroke Does the patient have a stroke diagnosis?: No VTE Prior VTE?: No VTE Risk Level:: Medical - moderate - high VTE Device Contraindication: Treatment Not Indicated VTE Drug Contraindication: N/A - Med Ordered
[2022-08-11 15:28] VITALS: BP 140/74; PULSE 57; RESP 18; TEMP 37.1; O2SAT 94
--- NOTE | 2022-08-11 17:18 | MHC.SLORD ---
Speech Language Pathology Order Status: Attempted to see pt this afternoon for bedside swallow eval. Pt was sleeping, awoke momentarily, but quickly falling back asleep. Pt currently on pureed diet (NDD1) with thin liquids. Per MD, pt was successfully weaned off 02.
[2022-08-11 17:27] LABS: Vancomycin Random 13.4 mcg/mL (15-20)
[2022-08-11 19:32] VITALS: BP 159/86; PULSE 65; RESP 18; TEMP 36.8; O2SAT 93
[2022-08-11 23:57] VITALS: BP 164/83; PULSE 50; RESP 18; TEMP 37.1; O2SAT 94
[2022-08-12] MEDS: 0.9 % Sodium Chloride Flush 3 ML SYRINGE IVFLUSH ×4 (00:05→20:14)
[2022-08-12 04:00] VITALS: BP 169/91; PULSE 50; RESP 18; TEMP 36.7; O2SAT 96
[2022-08-12 05:47] LABS: Hematocrit 28.4 % (37.0-47.0); Hemoglobin 9.1 g/dl (12.0-16.0); Mean Corpuscular Hemoglobin 30.1 pg (27.0-33.0); Mean Platelet Volume 11.4 fL (9.4-12.3); Platelet Count 308 X10*3/uL (160-400); Red Blood Count 3.02 X10*6/uL (4.20-5.50); Red Cell Distribution Width 13.2 % (11.0-16.0); White Blood Count 15.8 X10*3/uL (4.8-10.8)
[2022-08-12] MEDS: Dextrose 5 % 1,000 ML 50 ML IVCONT (06:17)
[2022-08-12] MEDS: Enoxaparin Sodium 40 MG/0.4 ML SYRINGE SUBCUT (06:18)
[2022-08-12 06:24] LABS: Anion Gap 9 (12-20); Blood Urea Nitrogen 23 mg/dL (9-16); Calcium 7.6 mg/dL (8.4-10.2); Carbon Dioxide 34 mmol/L (22-29); Chloride 105 mmol/L (96-108); Creatinine Clr Calc Pharmacy 90.4; Estimated Glomerular Filt Rate > 60; Glucose Random 97 mg/dL (60-115); Potassium 2.5 mmol/L (3.3-5.1); Sodium 145 mmol/L (135-145)
[2022-08-12 07:03] VITALS: BP 150/80; PULSE 53; RESP 20; TEMP 37.4; O2SAT 95
[2022-08-12] MEDS: Potassium Chloride Packet 20 MEQ PACKET 40 MEQ PO ×2 (07:20→10:19)
[2022-08-12] MEDS: Spironolactone 25 MG TABLET PO (09:04)
[2022-08-12] MEDS: carvediloL 3.125 MG TABLET PO ×2 (09:04→20:13)
[2022-08-12] MEDS: predniSONE 20 MG TABLET 40 MG PO ×2 (09:04→16:55)
[2022-08-12] MEDS: Sacubitril/Valsartan 24/26 1 TAB TABLET PO ×2 (09:04→20:13)
[2022-08-12] MEDS: Furosemide 40 MG TABLET PO (09:04)
[2022-08-12] MEDS: Potassium Chloride/H20 10 MEQ/100 ML PIGGYBACK 100 MEQ IV ×4 (09:05→13:04)
[2022-08-12 09:20] LABS: Magnesium 1.4 mg/dL (1.6-2.6)
--- NOTE | 2022-08-12 10:09 | HO.PM.IMPN ---
Subjective Subjective Date of Service: 08/12/22 Interval History: Saying a few simple things in Frisian but otherwise unable to obtain ROS. Low K/Mg. Not hypoxic. No resp distress. Review of Systems Review of Systems: Yes Unobtainable due to mental status Physical Exam Vital Signs: Vital Signs: Last Vital Signs Temp 99.3 F 08/12/22 07:03 Pulse 53 08/12/22 07:03 Resp 20 08/12/22 07:03 BP 150/80 H 08/12/22 07:03 Pulse Ox 95 08/12/22 07:03 O2 Del Method Room Air 08/12/22 07:03 O2 Flow Rate 3 08/09/22 11:26 FiO2 30 08/08/22 07:48 Oxygen Flow Rate 13 08/03/22 23:30 BMI result Body Mass Index 16.4 Gen: cachectic HEENT: sclera anicteric, moist mucus membranes Neck: supple Lungs: clear to auscultation bilaterally Heart: regular rate and rhythm, no murmurs Abd: soft, non-tender, non-distended Ext: no edema Skin: warm/well-perfused Neuro: alert, moving all extremities, unable to assess orientation Psych: impaired insight Objective Data Active Medications Acetaminophen (Acetaminophen 325 Mg Tablet) 650 mg PO Q6H PRN PRN Reason: Pain, Mild (Pain Scale 1-3) Carvedilol (Carvedilol 3.125 Mg Tablet) 3.125 mg PO BID [facility]; Protocol Last Admin: 08/12/22 09:04 Dose: 3.125 mg Documented By: GURU Collagenase (Collagenase Clostridium Hist. 30 Gm Tube) 1 appl TOPICAL DAILY KJ; Protocol Last Admin: 08/11/22 18:31 Dose: Not Given Documented By: LUI Non-Admin Reason: Med Not Available Docusate Sodium (Docusate Sodium 100 Mg Capsule) 100 mg PO DAILY PRN PRN Reason: Constipation Enoxaparin Sodium (Enoxaparin Sodium 40 Mg/0.4 Ml Syringe) 40 mg SUBCUT Q24H KJ Last Admin: 08/12/22 06:18 Dose: 40 mg Documented By: CHUY Furosemide (Furosemide 40 Mg Tablet) 40 mg PO DAILY KJ; Protocol Last Admin: 08/12/22 09:04 Dose: 40 mg Documented By: GURU Dextrose (D5w) 1,000 mls @ 50 mls/hr IVCONT .Q20H KJ Last Admin: 08/12/22 06:17 Dose: 50 mls/hr Documented By: CHUY Potassium Chloride (Potassium Chloride/H20) 10 meq in 100 mls @ 100 mls/hr IV Q1H KJ Stop: 08/12/22 11:59 Last Admin: 08/12/22 09:05 Dose: 100 mls/hr Documented By: GURU Ondansetron HCl (Ondansetron Hcl 4 Mg/2 Ml Vial) 4 mg IVPUSH Q8H PRN PRN Reason: Nausea and Vomiting Potassium Chloride (Potassium Chloride Packet 20 Meq Packet) 40 meq PO Q4H KJ Stop: 08/12/22 10:46 Last Admin: 08/12/22 07:20 Dose: 40 meq Documented By: CHUY Prednisone (Prednisone 20 Mg Tablet) 40 mg PO BIDWM KJ; Taper Stop: 08/19/22 08:19 Last Admin: 08/12/22 09:04 Dose: 40 mg Documented By: GURU Sacubitril/Valsartan (Sacubitril/Valsartan 1 Tab Tablet) 1 tab PO BID KJ; Protocol Last Admin: 08/12/22 09:04 Dose: 1 tab Documented By: GURU Sodium Chloride (0.9 % Sodium Chloride Flush 3 Ml Syringe) 3 ml IVFLUSH QSHIFT [facility] Last Admin: 08/12/22 09:04 Dose: 3 ml Documented By: GURU Spironolactone (Spironolactone 25 Mg Tablet) 25 mg PO DAILY KJ; Protocol Last Admin: 08/12/22 09:04 Dose: 25 mg Documented By: GURU Labs 08/12/22 05:35 08/12/22 05:35 Labs: Laboratory Results - last 24 hr 08/11/22 08/12/22 08/12/22 17:03 05:35 05:35 MCV 94.0 MCH 30.1 MCHC 32.0 RDW 13.2 Plt Count 308 D MPV 11.4 Absolute Nucleated RBC 0.000 Nucleated RBC % (auto) 0.0 Anion Gap 9 L Estim Creat Clear Calc 90.4 Estimated GFR > 60 Random Glucose 97 Calcium 7.6 L D Magnesium 1.4 L* Random Vancomycin 13.4 L Assessment and Plan (1) Septic shock: Status: Acute (2) Pneumonia: Status: Acute (3) Hypernatremia: Status: Acute Plan d#9 57yo F with advanced dementia found by visiting nurse to be on air mattress without air in it; found to have multiple pressure ulcers + PNA found to have severe LV systolic dysfunction # septic shock due to CAP - completed 7d of vanco + pip-angely, CXR improved, off O2, BCx negative hypotension resolved, afebrile- d/c'ed ABX 08/11/22 - wean off steroids- had been on methylprednisolone 60 mg q6h until 08/11/22. changed to prednisone and ordered to taper over 8 days # acute HFrEF - continue spironolactone, Entresto, carvedilol, furosemide [oral maintenance dose]. appears euvolemic at this time. # hyperNa - resolved after IV H20 repletion # hypoMg - replete IV, recheck in AM # hypoK - replete IV + PO, recheck in AM # pressure ulcers, unstageable, to left shoulder and left hip - Wound Care consulted 08/06: Left shoulder wound- Wound bed was about 95% slough/eschar with very little pink granulation tissue towards the edge of wound. Wound edges were attached. No undermining or tunneling. No odor noted. There was a small amount of serous drainage on the dressing. Periwound appearance was dry and intact. Wound measured 5.1cm x 2.3cm x 0.1cm. Wound was cleaned with sea clense wound cleanser. Foam border dressing reapplied for now. Left hip wound- wound bed was 100% slough/eschar. Wound edges were attached. No undermining or tunneling. No odor. Periwound had a small excoriated area distal to the wound, possibly from the dressing adhesive. Small amount of serous drainage noted on dressing. Wound measured 3cm x 2.2cm x 0.1cm. Wound was cleaned with sea clense wound cleanser. Applied zinc barrier cream to the excoriated area. Foam border reapplied to wound for now. Recommendation: Left shoulder wound- Cleanse with normal saline or sea clense. Would recommend applying Collagenase Santyl ointment, hubert thick, to the wound bed. Cover with foam border or gauze and tape daily. If periwound starts to get macerated, may apply zinc barrier cream around the wound. Would also suggest using skin prep to the areas where the adhesive is going to protect the patient's fragile skin from breaking down with the increased dressing changes. Left hip wound- Cleanse with normal saline or sea clense. Would also recommend applying Collagenase Santyl ointment, hubert thick, to the wound bed. Cover with foam border or gauze and tape daily. Continue to apply zinc to the excoriated area with dressing changes until resolved. If periwound starts to get macerated, may apply zinc barrier cream around the wound also. Would also suggest using skin prep to the excoriated area. Foam border reapplied to wound for now. # severe protein-calorie malnutrition - supplements ordered # VTE ppx: LMWH # dispo: plan eventually home with daughter rather than son. CM to file APS report In my clinical judgment, the patient requires continued inpatient hospitalization for the following reasons: electrolyte abnormalities requiring IV repletion + monitoring inpatient Time Spent With Patient Time: Total time managing care of this patient today _35___ minutes. Quality Stroke Does the patient have a stroke diagnosis?: No VTE Prior VTE?: No VTE Risk Level:: Medical - moderate - high VTE Device Contraindication: Treatment Not Indicated VTE Drug Contraindication: N/A - Med Ordered
[2022-08-12] MEDS: Collagenase Clostridium Hist. 30 GM TUBE 1 APPL TOPICAL (10:47)
[2022-08-12 11:00] VITALS: BP 160/90; PULSE 54; RESP 20; TEMP 36.8; O2SAT 94
[2022-08-12] MEDS: Magnesium Sulfate/H2O 2 GM/50 ML PIGGYBACK IV (11:40)
--- NOTE | 2022-08-12 12:03 | MHC.SL.DTX ---
Dysphagia Diet modifications: Last documented Solid diet consistencies: Grnd/Mech Altered (NDD2) Last documented Liquid consistency: Thin Last documented Medication Administration: Changes made to current diet?: No Liquid Consistency and Strategies: Liquid Intake Recommendation: Thin Compensatory Strategies for Safe Swallow: Unrestricted Compensatory Strategies for Safe Swallow(b): Sitting Upright (90 deg) Liquids from Cup Small Bites and Sips Alternate Liquids/Solids Rate of Ingestion Change Oral Check Avoid Specific Foods Solid Food Consistency: Dietary Recommendations: Grnd/Mech Altered (NDD2) Additional Modifications to Solids: Patient requires 1-1 feeding. Monitor for attention/engagement with meal, pocketing or oral residual. Alternate liquids and solids. Oral Medication Intake: Crushed with Puree Strategies and Precautions to be Taken for Safe Swallow: Sitting Upright (90 deg) Liquids from Cup Small Bites and Sips Alternate Liquids/Solids Rate of Ingestion Change Oral Check Avoid Specific Foods Supervision While Eating and/Drinking: Total Assistance (1:1) Foods to Avoid: Mixed consistencies such as soups, cereal with milk, fruit cups. Swallowing Recommended Treatments: Compens. Strategy Educat. Level of Impact on: Daily activities: Interpersonal interactions: Education: Employment: Community: Prognosis for Improvement: Good Recommendation for Speech: Inpatient Speech Therapy Comment: Recommend Ground/Mech Altered (NDD2) Solids and Thin Liquids. Pt will require 1:1 assistance with feeding. Aspiration precautions include upright positioning in bed, slow pace, small bites/sips, use of straws OK. TONGER will continue to follow. Frequency/Duration: Date Range for Service Req: Timeline to reassess: PRN Additional Comments: Treatment: Pt seen with assistance of a Cook Islander speaking medical interpretter. Pt minimally verbal, does nod and shake head for simple Y/N questions. Presenting as quite thirsty and hungry, enthusiastically taking administered bites and sips during PO trials. Pt not able to self-administer. When presented with cup or bowl with spoon demonstrating ideational apraxia. Will require total assist with 1:1 feeding. Pt tolerated Thin Liquids via Ice Chip, Spoon, administered cup sip and straw with no overt s/s of aspiration. Pt noted to take consecutive sips with no additional difficulty. Pt tolerated Puree Solids and Ground/Mech Altered with increased proficiency from previous encounters. Pt presenting as hungry/thirsty, reaching and grabbing for PO trials as administered to her. Assessment: Mirror Painter Clinican/Clinical Fellow: No Supervisory Statement: I have reviewed and agree with the student/clinical fellow's documentation: N/A Speech Language Pathologist: Deshawn Hoff M.A., CCC-TONGER
[2022-08-12 14:55] VITALS: BP 145/87; PULSE 54; RESP 19; TEMP 36.6; O2SAT 94
--- NOTE | 2022-08-12 16:14 | P.CONWO_ITS ---
History of Present Illness Data of Consult Service Date: 08/12/22 Requesting physician: Serafin Tiwari Primary Care Provider: Camila Gambino MD HPI Reason for consult: pressure ulcers PMFSH Medical History B12 deficiency Bowel and bladder incontinence Dementia Depression Encounter to establish care Hypertension SBO (small bowel obstruction) Family History Father Pacemaker Chronic mental illness Hypertension Mother Hypertension Chronic mental illness Family/Other Chronic mental illness Brother No problems noted. Sister No problems noted. Son No problems noted. Daughter No problems noted. Daughter No problems noted. Daughter No problems noted. Surgical History History of section History of incisional hernia repair History of ventral hernia repair Social History Household Members: Family Household Members Other:: lives with son Housing: Apartment Do you presently have visiting nurse or other home services: Yes (2 days per week) Unable to assess alcohol history related to: Unable to respond Alcohol intake: unknown Patient Tobacco Use Status: Former Tobacco user Tobacco use type: Cigarette Years Smoked: 20 e-Cigarette/Vaping Use: Never Used Second Hand Smoke Exposure: No Advance Directives Date on File: 08/04/22 service: No Meds Allergies Allergy/AdvReac Type Severity Reaction Status Date / Time No Known Allergies Allergy Verified 05/08/22 13:15 [No Known Allergies*] Active Medications: Current Medications Acetaminophen (Acetaminophen 325 Mg Tablet) 650 mg PO Q6H PRN PRN Reason: Pain, Mild (Pain Scale 1-3) Carvedilol (Carvedilol 3.125 Mg Tablet) 3.125 mg PO BID KJ; Protocol Last Admin: 08/12/22 09:04 Dose: 3.125 mg Collagenase (Collagenase Clostridium Hist. 30 Gm Tube) 1 appl TOPICAL DAILY [facility]; Protocol Last Admin: 08/12/22 10:47 Dose: 1 appl Docusate Sodium (Docusate Sodium 100 Mg Capsule) 100 mg PO DAILY PRN PRN Reason: Constipation Enoxaparin Sodium (Enoxaparin Sodium 40 Mg/0.4 Ml Syringe) 40 mg SUBCUT Q24H KJ Last Admin: 08/12/22 06:18 Dose: 40 mg Furosemide (Furosemide 40 Mg Tablet) 40 mg PO DAILY KJ; Protocol Last Admin: 08/12/22 09:04 Dose: 40 mg Ondansetron HCl (Ondansetron Hcl 4 Mg/2 Ml Vial) 4 mg IVPUSH Q8H PRN PRN Reason: Nausea and Vomiting Prednisone (Prednisone 20 Mg Tablet) 40 mg PO BIDWM KJ; Taper Stop: 08/19/22 08:19 Last Admin: 08/12/22 09:04 Dose: 40 mg Sacubitril/Valsartan (Sacubitril/Valsartan 1 Tab Tablet) 1 tab PO BID KJ; Protocol Last Admin: 08/12/22 09:04 Dose: 1 tab Sodium Chloride (0.9 % Sodium Chloride Flush 3 Ml Syringe) 3 ml IVFLUSH QSHIFT KJ Last Admin: 08/12/22 09:04 Dose: 3 ml Spironolactone (Spironolactone 25 Mg Tablet) 25 mg PO DAILY KJ; Protocol Last Admin: 08/12/22 09:04 Dose: 25 mg Physical Exam Vital Signs and Narrative: Vital Signs: Last Vital Signs Temp 97.8 F 08/12/22 14:55 Pulse 54 08/12/22 14:55 Resp 19 08/12/22 14:55 BP 145/87 H 08/12/22 14:55 Pulse Ox 94 08/12/22 14:55 O2 Del Method Room Air 08/12/22 14:55 O2 Flow Rate 3 08/09/22 11:26 FiO2 30 08/08/22 07:48 Oxygen Flow Rate 13 08/03/22 23:30 BMI result Body Mass Index 16.4 Peeled back left shoulder Allevyn in to reveal unstageable pressure ulcer as documented previously by wound nurse. Peeled back left hip Allevyn to reveal unstageable pressure ulcer as documented previously by wound nurse. Results Labs 08/12/22 05:35 08/12/22 05:35 Labs: Laboratory Results - last 24 hr 08/11/22 08/12/22 08/12/22 17:03 05:35 05:35 MCV 94.0 MCH 30.1 MCHC 32.0 RDW 13.2 Plt Count 308 D MPV 11.4 Absolute Nucleated RBC 0.000 Nucleated RBC % (auto) 0.0 Anion Gap 9 L Estim Creat Clear Calc 90.4 Estimated GFR > 60 Random Glucose 97 Calcium 7.6 L D Magnesium 1.4 L* Random Vancomycin 13.4 L Assessment and Plan (1) Pressure ulcer: Status: Acute Plan Please see detailed note dated August 06, 2022 documented by wound care clinic nurse, Holly Brody. Agree with Santyl and see that it was ordered by the hospitalist for daily application to left shoulder and hip. Nothing to add other than low albumin, might consider protein supplements if she awake and alert enough to tolerate. To review wound clinic nursing documentation easily, please use the Nursing/Allied Health tab and select filter. Click Deselect All at the top of the third column entitled Specialty and scroll to bottom, select wound and apply. Feel free to pass on. Time Spent With Patient Time: Total time managing care of this patient today ____ minutes.
--- NOTE | 2022-08-12 16:34 | PC.NURSE ---
Dressing change of L hip and shoulder done at 11:45 today. Wound cleansed with sea clense and santyl ointment applied. Foam dressing reapplied and dated. Redness noted on coccyx area as well so foam dressing and barrier cream applied.
[2022-08-12 19:06] VITALS: BP 148/85; PULSE 58; RESP 17; TEMP 36.8; O2SAT 94
[2022-08-12 23:37] VITALS: BP 140/82; PULSE 56; RESP 20; TEMP 36.1; O2SAT 96
[2022-08-13 03:02] VITALS: BP 140/78; PULSE 54; RESP 20; TEMP 36.7; O2SAT 93
[2022-08-13 06:44] LABS: Hematocrit 33.4 % (37.0-47.0); Hemoglobin 10.8 g/dl (12.0-16.0); Mean Corpuscular HGB Conc 32.3 g/dl (31.0-35.0); Mean Corpuscular Hemoglobin 30.3 pg (27.0-33.0); Mean Corpuscular Volume 93.6 fL (80.0-98.0); Mean Platelet Volume 11.5 fL (9.4-12.3); Platelet Count 360 X10*3/uL (160-400); Red Blood Count 3.57 X10*6/uL (4.20-5.50); Red Cell Distribution Width 13.2 % (11.0-16.0); White Blood Count 15.6 X10*3/uL (4.8-10.8)
[2022-08-13 06:53] LABS: Anion Gap 10 (12-20); Blood Urea Nitrogen 17 mg/dL (9-16); Calcium 7.9 mg/dL (8.4-10.2); Carbon Dioxide 32 mmol/L (22-29); Chloride 102 mmol/L (96-108); Creatinine Clr Calc Pharmacy 88.7; Estimated Glomerular Filt Rate > 60; Glucose Random 81 mg/dL (60-115); Potassium 3.8 mmol/L (3.3-5.1); Sodium 140 mmol/L (135-145)
[2022-08-13 07:19] VITALS: BP 146/82; PULSE 55; RESP 20; TEMP 36.2; O2SAT 98
[2022-08-13] MEDS: Spironolactone 25 MG TABLET PO (09:55)
[2022-08-13] MEDS: carvediloL 3.125 MG TABLET PO (09:55)
[2022-08-13] MEDS: Sacubitril/Valsartan 24/26 1 TAB TABLET PO (09:55)
[2022-08-13] MEDS: Enoxaparin Sodium 40 MG/0.4 ML SYRINGE SUBCUT (09:56)
[2022-08-13] MEDS: 0.9 % Sodium Chloride Flush 3 ML SYRINGE IVFLUSH ×2 (09:56→14:31)
[2022-08-13] MEDS: Furosemide 40 MG TABLET PO (09:56)
[2022-08-13] MEDS: predniSONE 20 MG TABLET 40 MG PO (09:56)
[2022-08-13] MEDS: Collagenase Clostridium Hist. 30 GM TUBE 1 APPL TOPICAL (10:27)
--- NOTE | 2022-08-13 10:37 | MHC.CM.PN ---
Addendum entered by Grace Thakur RN 08/13/22 14:43: PT UNABLE TO WALK, WILL SET UP BLS TRANSPORT FOR 4PM Addendum entered by Grace Thakur RN 08/13/22 11:06: ELDER AT RISK TO BE FILED W/GSSS. Original Note: CM CONTACTED PT'S DTR [facility] VIA TRANSPORTATION REFRIGERATION TECHNICIAN OVER PHONE TO DISCUSS DISPO PT IS MEDICALLY CLEARED FOR D/C, [facility] REPORTS THEY HAVE NOT RECEIVED THE SCRIPT FROM PCP FOR HOSPITAL BED HOWEVER SHE DOES HAVE AN EXTRA BED/ROOM FOR PT, [facility] REPORTS SHE CAN TRANSPORT PT AND PT HAD BEEN ABLE TO WALK A LITTLE PRIOR TO ADMISSION, PT WILL BE EVALUATED BY P.T. TO DETERMINE IF SHE SHOULD HAVE PT SERVICES AT HOME, HOWEVER UNSURE IF PT WILL BE ABLE TO FOLLOW INSTRUCTIONS. ANTIC PT WILL D/C TO [facility] [employer]PA[employer] [facility] AND [facility] FOR TRANSPORT VS BLS
[2022-08-13 11:08] VITALS: BP 125/82; PULSE 57; RESP 20; TEMP 36.2; O2SAT 95
--- NOTE | 2022-08-13 11:28 | MHC.CLN ---
F/U PT IS SEVERELY MALNOURISHED SEE CLINICAL NUTRITION ASSESSMENT DATED 08/05/22 PO INTAKE 75-100% DIET RX: GRD M/S-APPROPRIATE APPRAISAL COORDINATOR FOLLOWING FOR APPROPRIATE DIET CONSISTENCY PT RECEIVING ENSURE BID PROVIDES 700KCALS, 40G PROTEIN WITH 100% ACCEPTANCE IN ADDITION, PT RECEIVING KYUNG BID AND THRIVE ICE CREAM TO INCREASE KCALS FOR WOUND HEALING CONTINUE TO MONITOR PO INTAKE CLOSELY
[2022-08-13 12:21] VITALS: BP 125/82; PULSE 57; O2SAT 95
--- NOTE | 2022-08-13 13:47 | HO.PM.IMPN ---
Subjective Subjective Date of Service: 08/13/22 Interval History: being followed for electrolyte abnormalities, unable to obtain review of system due to mental status, no acute issues overnight. Review of Systems un able to obtain due to advanced dementia Physical Exam Vital Signs: Vital Signs: Last Vital Signs Temp 97.2 F 08/13/22 11:08 Pulse 57 08/13/22 12:21 Resp 20 08/13/22 11:08 BP 125/82 08/13/22 12:21 Pulse Ox 95 08/13/22 12:21 O2 Del Method Room Air 08/13/22 11:08 O2 Flow Rate 3 08/09/22 11:26 FiO2 30 08/08/22 07:48 Oxygen Flow Rate 13 08/03/22 23:30 BMI result Body Mass Index 16.4 Const: Other: Gen: awake alert, in no acute distress HEENT: sclera anicteric, moist mucus membranes Neck: supple Lungs: clear to auscultation bilaterally Heart: regular rate and rhythm, no murmurs Abd: soft, non-tender, non-distended Ext: no edema Skin: warm/well-perfused Neuro: alert, unable to assess orientation Psych: impaired insight Objective Data Active Medications Acetaminophen (Acetaminophen 325 Mg Tablet) 650 mg PO Q6H PRN PRN Reason: Pain, Mild (Pain Scale 1-3) Carvedilol (Carvedilol 3.125 Mg Tablet) 3.125 mg PO BID KJ; Protocol Last Admin: 08/13/22 09:55 Dose: 3.125 mg Documented By: LUI Collagenase (Collagenase Clostridium Hist. 30 Gm Tube) 1 appl TOPICAL DAILY KJ; Protocol Last Admin: 08/13/22 10:27 Dose: 1 appl Documented By: LUI Docusate Sodium (Docusate Sodium 100 Mg Capsule) 100 mg PO DAILY PRN PRN Reason: Constipation Enoxaparin Sodium (Enoxaparin Sodium 40 Mg/0.4 Ml Syringe) 40 mg SUBCUT Q24H KJ Last Admin: 08/13/22 09:56 Dose: 40 mg Documented By: LUI Furosemide (Furosemide 40 Mg Tablet) 40 mg PO DAILY KJ; Protocol Last Admin: 08/13/22 09:56 Dose: 40 mg Documented By: LUI Ondansetron HCl (Ondansetron Hcl 4 Mg/2 Ml Vial) 4 mg IVPUSH Q8H PRN PRN Reason: Nausea and Vomiting Prednisone (Prednisone 20 Mg Tablet) 40 mg PO DAILY [facility]; Taper Stop: 08/19/22 08:59 Sacubitril/Valsartan (Sacubitril/Valsartan 1 Tab Tablet) 1 tab PO BID KJ; Protocol Last Admin: 08/13/22 09:55 Dose: 1 tab Documented By: LUI Sodium Chloride (0.9 % Sodium Chloride Flush 3 Ml Syringe) 3 ml IVFLUSH QSHIFT KJ Last Admin: 08/13/22 09:56 Dose: 3 ml Documented By: LUI Spironolactone (Spironolactone 25 Mg Tablet) 25 mg PO DAILY KJ; Protocol Last Admin: 08/13/22 09:55 Dose: 25 mg Documented By: LUI Labs 08/13/22 06:11 08/13/22 06:11 Labs: Laboratory Results - last 24 hr 08/13/22 08/13/22 06:11 06:11 MCV 93.6 MCH 30.3 MCHC 32.3 RDW 13.2 Plt Count 360 MPV 11.5 Absolute Nucleated RBC 0.000 Nucleated RBC % (auto) 0.0 Anion Gap 10 L Estim Creat Clear Calc 88.7 Estimated GFR > 60 Random Glucose 81 Calcium 7.9 L Magnesium 2.0 Assessment and Plan (1) Septic shock: Status: Acute (2) Pneumonia: Status: Acute (3) Hypernatremia: Status: Acute Plan 57yo F with advanced dementia found by visiting nurse to be on air mattress without air in it; found to have multiple pressure ulcers + PNA found to have severe LV systolic dysfunction # septic shock due to CAP - completed 7d of vanco + pip-angely, CXR improved, off O2, BCx negative hypotension resolved, afebrile- d/c'ed ABX 08/11/22 - wean off steroids- had been on methylprednisolone 60 mg q6h until 08/11/22,now on prednisone with taper over 7 days # acute HFrEF - echo August 08 showed EF 25-30%, significantly elevated right atrial pressures, moderate pulmonary hypertension, moderate global hypokinesis, indeterminate diastolic function. - continue spironolactone, Entresto, carvedilol, furosemide po, appears euvolemic at this time. # hyperNa - resolved after IV H20 repletion # hypoMg - repleted, repeat magnesium 2 # hypoK - replete IV + PO, repeat level 3.8 this morning # pressure ulcers, unstageable, to left shoulder and left hip - Wound Care consulted 08/06: Left shoulder wound- Wound bed was about 95% slough/eschar with very little pink granulation tissue towards the edge of wound. Wound edges were attached. No undermining or tunneling. No odor noted. There was a small amount of serous drainage on the dressing. Periwound appearance was dry and intact. Wound measured 5.1cm x 2.3cm x 0.1cm. Wound was cleaned with sea clense wound cleanser. Foam border dressing reapplied for now. Left hip wound- wound bed was 100% slough/eschar. Wound edges were attached. No undermining or tunneling. No odor. Periwound had a small excoriated area distal to the wound, possibly from the dressing adhesive. Small amount of serous drainage noted on dressing. Wound measured 3cm x 2.2cm x 0.1cm. Wound was cleaned with sea clense wound cleanser. Applied zinc barrier cream to the excoriated area. Foam border reapplied to wound for now. Recommendation: Left shoulder wound- Cleanse with normal saline or sea cleanse. Would recommend applying Collagenase Santyl ointment, hubert thick, to the wound bed. Cover with foam border or gauze and tape daily. If daija wound starts to get macerated, may apply zinc barrier cream around the wound. Would also suggest using skin prep to the areas where the adhesive is going to protect the patient's fragile skin from breaking down with the increased dressing changes. Left hip wound- Cleanse with normal saline or sea cleanse. Would also recommend applying Collagenase Santyl ointment, hubert thick, to the wound bed. Cover with foam border or gauze and tape daily. Continue to apply zinc to the excoriated area with dressing changes until resolved. If daija wound starts to get macerated, may apply zinc barrier cream around the wound also. Would also suggest using skin prep to the excoriated area. Foam border reapplied to wound for now. # severe protein-calorie malnutrition - supplements ordered # VTE ppx: LMWH # dispo: plan eventually home with daughter rather than son. CM to file APS report, physical therapy consult obtained In my clinical judgment, the patient requires continued inpatient hospitalization for the following reasons: safe disposition. Time Spent With Patient Time: Total time managing care of this patient today ____ minutes. Quality Stroke Does the patient have a stroke diagnosis?: No VTE Prior VTE?: No VTE Risk Level:: Medical - moderate - high VTE Device Contraindication: Treatment Not Indicated VTE Drug Contraindication: N/A - Med Ordered
--- NOTE | 2022-08-13 13:51 | MHC.SL.SWA ---
Risk of Aspiration Due to: Lethargy Medically Fragile Neurological Condition History of Pneumonia Poor PO Intake Weak Cough Weak Voice Dysphasia Diet Status: No change Liquid Consistency and Strategies for Safe Swallow: Liquid Intake Recommendation: Thin Liquid Intake Strategies: Small Sips Solid Food Consistency: Dietary Recommendations: Grnd/Mech Altered (NDD2) Additional Modifications to Solid Foods: Patient requires 1-1 feeding. Monitor for attention/engagement with meal, pocketing or oral residual. Alternate liquids and solids. Oral Medication Intake: Crushed with Puree Please contact the pharmacy regarding appropriate crushable or liquid drug formulations that are available whenever modified delivery is recommended. Compensatory Strategies and Precautions to be Taken for Safe Swallow: Sitting Upright (90 deg) Liquids from Cup Small Bites and Sips Alternate Liquids/Solids Rate of Ingestion Change Oral Check Avoid Specific Foods Supervision While Eating and Drinking for Safe Swallow: Total Assistance (1:1) Foods to Avoid: Mixed consistencies such as soups, cereal with milk, fruit cups. Swallowing Recommended Treatments: Compens. Strategy Educat. Recommendation for Speech: Inpatient Speech Therapy Recommend patient continue w/ Ground/Mech Altered (NDD2) Solids, Thin liquids, pills crushed in puree. Recommend 1-1 assist for feeding and cueing. If pt is assisting w/ holding of cup; pt benefits from tactile cues to slow rate of ingestion. Aspiration precautions include upright positioning in bed, slow pace, small bites/sips. Recommend OT d/t observed ideational apraxia and difficulty with feeding. ASSEMBLER TRIM will continue to follow. Purchasing And Claims Supervisor Clinican/Clinical Fellow: No Supervisory Statement: I have reviewed and agree with the student/clinical fellow's documentation: N/A Speech Language Pathologist: Nhi Duvall M.A., ASSEMBLER TRIM
--- NOTE | 2022-08-13 15:07 | P.DS_ITS ---
DS: Providers Provider Date of Service: 08/13/22 Date of admission: 08/04/22 06:35 Primary care physician: Camila Gambino MD Consults: 08/04/22 10:39 Consult to Critical Care Routine Consulting Provider: Joey Rosado Reason for consultation: hypotension on pressors 08/07/22 21:38 Consult to Cardiology Routine Consulting Provider: [facility] Cardiovascular Services Reason for consultation: CHF Has provider been notified: Yes 08/11/22 14:34 Consult to Wound Care Routine Consulting Provider: [facility] Wound Care Management Reason for consultation: pressure ulcers DS: Diagnosis Discharge Diagnosis (1) Septic shock: Status: Acute (2) Pneumonia: Status: Acute (3) Hypernatremia: Status: Acute DS: Summary Hospital Course Hospital Course: history of presenting illness: Date of Service: 08/04/22 Chief Complaint: increasing weakness 57-year-old female with past medical history of hypertension, dementia, de pression, is brought in from home after visiting nurse found patient to be increasingly more weak, and sleeping on an air mattress for days at did not have any air in it.? Patient is not able to give me much history.? She has dementia and other psychiatric conditions.? Patient lives with her family, attempt was made to call the family and waiting for a call back.? It appears the patient has multiple pressure ulcers and multiple locations of her body, she is incontinent of urine. Unable to obtain much other history On arrival to the ED patient noted to have a temp of 94.7 degrees, satting 89% on room air Patient was placed on warming blanket but did become hypotensive, patient received 4 L of fluid with slight improvement her blood pressure Labs are significant for WBC count of 16.8, hematocrit of 11.7, hematocrit 36.1, sodium of 147, BUN of 75, lactic acid of 3.1 which resolved after fluids, AST of 132, ALT of 120, alk-phos of 141, Chest x-ray showed patchy mild and basilar left lung opacity suspicious for pneumonia Patient started on IV antibiotics, will be admitted for further management. hospital course: 57yo F with advanced dementia found by visiting nurse to be on air mattress without air in it; found to have multiple pressure ulcers + PNA, found to have severe LV systolic dysfunction # septic shock due to CAP, completed 7d of vanco + pip-angely, CXR improved, off O2, BCx negative hypotension resolved, afebrile, finished course of antibiotics on 08/11/22, wean off steroids- had been on methylprednisolone 60 mg q6h until 08/11/22, was on prednisone 40 mg daily since, will discharge on prednisone tapering dose for 7 more days. # acute HFrEF treated with diuretics with good response, echo August 08 showed EF 25-30%, significantly elevated right atrial pressures, moderate pulmonary hypertension, moderate global hypokinesis, indeterminate diastolic function, continue spironolactone, Entresto, carvedilol, furosemide po, appears euvolemic at this time. # hyperNa- resolved after IV H20 repletion # hypoMg - repleted, repeat magnesium 2 # hypoK - resolved potassium 3.8 recommend to follow potassium level on August 18 # pressure ulcers, unstageable, to left shoulder and left hip - Wound Care consulted 08/06: Left shoulder wound- Wound bed was about 95% slough/eschar with very little pink granulation tissue towards the edge of wound. Wound edges were attached. No undermining or tunneling. No odor noted. There was a small amount of serous drainage on the dressing. Periwound appearance was dry and intact. Wound measured 5.1cm x 2.3cm x 0.1cm. Wound was cleaned with sea clense wound cleanser. Foam border dressing reapplied for now. Left hip wound- wound bed was 100% slough/eschar. Wound edges were attached. No undermining or tunneling. No odor. Periwound had a small excoriated area distal to the wound, possibly from the dressing adhesive. Small amount of serous drainage noted on dressing. Wound measured 3cm x 2.2cm x 0.1cm. Wound was cleaned with sea clense wound cleanser. Applied zinc barrier cream to the excoriated area. Foam border reapplied to wound for now. Recommendation: Left shoulder wound- Cleanse with normal saline or sea cleanse. Would recommend applying Collagenase Santyl ointment, hubert thick, to the wound bed. Cover with foam border or gauze and tape daily. If daija wound starts to get m acerated, may apply zinc barrier cream around the wound. Would also suggest using skin prep to the areas where the adhesive is going to protect the patient's fragile skin from breaking down with the increased dressing changes. Left hip wound- Cleanse with normal saline or sea cleanse. Would also recommend applying Collagenase Santyl ointment, hubert thick, to the wound bed. Cover with foam border or gauze and tape daily. Continue to apply zinc to the excoriated area with dressing changes until resolved. If daija wound starts to get macerated, may apply zinc barrier cream around the wound also. Would also suggest using skin prep to the excoriated area. Foam border reapplied to wound for now. being discharged home with VNA for wound care and [employer]. # severe protein-calorie malnutrition, continue supplements as ordered. Time Spent with Patient Time attestation: Total time managing care of this patient today ____ minutes. Discharge coordination time: Greater than 30 minutes Quality: Safe Use of Opioids Does Pt have an Active Cancer Diagnosis on the Problem List?: No Quality: Stroke Does the patient have a stroke diagnosis?: No Physical Exam Vital Signs: Vital Signs: Last Vital Signs Temp 97.2 F 08/13/22 11:08 Pulse 57 08/13/22 12:21 Resp 20 08/13/22 11:08 BP 125/82 08/13/22 12:21 Pulse Ox 95 08/13/22 12:21 O2 Del Method Room Air 08/13/22 11:08 O2 Flow Rate 3 08/09/22 11:26 FiO2 30 08/08/22 07:48 Oxygen Flow Rate 13 08/03/22 23:30 BMI result Body Mass Index 16.4 Const: Other: Gen: awake alert, in no acute distress HEENT: sclera anicteric, moist mucus membranes Neck: supple Lungs: clear to auscultation bilaterally Heart: regular rate and rhythm, no murmurs Abd: soft, non-tender, non-distended Ext: no edema Skin: warm/well-perfused Neuro: alert, unable to assess orientation Psych: impaired insight DS: Data Data Completed and Pending Labs on day of discharge: Laboratory Results - last 24 hr 08/13/22 08/13/22 06:11 06:11 WBC 15.6 H RBC 3.57 L Hgb 10.8 L Hct 33.4 L MCV 93.6 MCH 30.3 MCHC 32.3 RDW 13.2 Plt Count 360 MPV 11.5 Absolute Nucleated RBC 0.000 Nucleated RBC % (auto) 0.0 Sodium 140 Potassium 3.8 D Chloride 102 Carbon Dioxide 32 H Anion Gap 10 L BUN 17 H Creatinine 0.52 Estim Creat Clear Calc 88.7 Estimated GFR > 60 Random Glucose 81 Calcium 7.9 L Magnesium 2.0 Discharge Plan Discharge Anticipated Discharge Date/Time: 08/13/22 14:47 Patient Disposition: Home Health Service Discharge Diagnosis: septic shock due to community-acquired pneumonia acute heart failure with reduced EF hypernatremia hypo magnesemia pressure ulcer unstageable left shoulder and left hip Referrals: [facility] [Other] - 1 Week ([facility] CAN LOAN YOU A WHEELCHAIR UNTIL YOU CAN GET ONE THROUGH INSURANCE, PLEASE RETURN YOUR BORROWED WHEELCHAIR WHEN CHAPITO GETS HER OWN. ) [facility] [Outside] - 1 Day (RESUMPTION OF CARE) Camila Rouse MD [Primary Care Provider] - 1 Week Discharge Medications: New furosemide 40 mg Tablet 40 mg PO DAILY Qty: 30 0RF Protocol: Hold for SBP< HOLD for SBP < : 90 acetaminophen 325 mg Tablet 650 mg PO Q6H PRN (Reason: Pain, Mild (Pain Scale 1-3)) Qty: 30 0RF spironolactone 25 mg Tablet 25 mg PO DAILY Qty: 30 0RF Protocol: Hold for SBP< HOLD for SBP < : 90 carvedilol 3.125 mg Tablet 3.125 mg PO BID Qty: 60 0RF Protocol: Hold for SBP/HR < HOLD for SBP < : 90 HOLD for HR < : 60 Santyl 250 unit/gram Ointment 1 appl topical DAILY 30 Days Qty: 30 0RF Protocol: Apply to: Apply to: wound Entresto 24-26 mg Tablet 1 tab PO BID Qty: 3 0RF Protocol: Hold for SBP< HOLD for SBP < : 90 prednisone 10 mg tablet 10 mg PO DAILY Qty: 10 0RF Rx Instructions: take 2 tabs daily x 3 days than take 1 tab daily x 4 days than stop Continued fluoxetine 10 mg capsule 10 mg PO DAILY 90 Days Qty: 90 1RF trazodone 50 mg tablet 50 mg PO BEDTIME 90 Days Qty: 90 0RF risperidone 0.5 mg tablet 0.5 mg PO BID 30 Days Qty: 60 4RF Discontinued amlodipine 10 mg tablet 10 mg PO DAILY 90 Days Qty: 90 1RF hydrochlorothiazide 25 mg tablet 25 mg PO DAILY 90 Days Qty: 90 1RF Discharge Orders: Discharge Order (Routine); Ordered 08/13/22 Ordered By: Kris Toro Diet: ground mechanical Activity on Discharge: As tolerated Stand Alone Forms: Patient Portal Discharge page Other Ambulatory Orders: Basic Metabolic Panel (Routine) Timeframe: [id number] Facility: [facility] - Location: Laboratory Ordered By: Kris Toro Care Plan Goals: septic shock due to pneumonia resolved, take prednisone by mouth for 4 more days take all medications as prescribed continue wound dressing Left shoulder wound- Cleanse with normal saline or sea cleanse. Would recommend applying Collagenase Santyl ointment, hubert thick, to the wound bed. Cover with foam border or gauze and tape daily. If daija wound starts to get macerated, may apply zinc barrier cream around the wound. Would also suggest using skin prep to the areas where the adhesive is going to protect the patient's fragile skin from breaking down with the increased dressing changes. Left hip wound- Cleanse with normal saline or sea cleanse. Would also recommend applying Collagenase Santyl ointment, hubert thick, to the wound bed. Cover with foam border or gauze and tape daily. Continue to apply zinc to the excoriated area with dressing changes until resolved. If daija wound starts to get macerated, may apply zinc barrier cream around the wound also. Would also suggest using skin prep to the excoriated area. Foam border reapplied to wound for now. Health Concerns: for severe protein calorie malnutrition, continue Ensure to 40 b.i.d., Bon 1 packet b.i.d., thrive 6 oz cup t.i.d. Plan of Treatment: close outpatient follow-up with primary care physician call for appointment. check BMP on 08/18, follow report with PCP Assessment: as above
[2022-08-13 15:10] VITALS: BP 105/62; PULSE 51; RESP 17; TEMP 36; O2SAT 93
--- NOTE | 2022-08-14 14:09 | W.MHC.F2F ---
Service Date Service Date: 08/13/22 Encounter Date of encounter: 08/13/22 Reasons for Services Signs and symptoms assessed: advanced dementia, severe left ventricular systolic dysfunction, pressure ulcer to left shoulder and left hip will need VNA services for dressing change. Homebound: Leaving the home is medically contraindicated at this time without the asist of a device and/or another person due th the listed conditions above and below. Reason homebound: weakness related to hospital stay Certification: Based on the above findings, I certify that this patient is confined to the home and needs intermittent long-term care, physical therapy and/or speech therapy, or continues to need occupational therapy. The patient is under my care, and I have initiated the establishment of the plan of care. The patient will be followed by a physician who will periodically review the plan of care. Time Spent With Patient Time: Total time managing care of this patient today ____ minutes.
--- NOTE | 2022-08-15 16:08 | MHC.CM.PN ---
POST D/C NOTE, CM CONTACTED PT'S PCP SAMM LENTZ TO REQUEST LETTER FOR PT STATING SHE NEEDS TO BE ON THE FIRST FLOOR D/T DEMENTIA, BEDBOUND ETC.. PRINCIPAL CLOUD ARCHITECT REPORTS SHE WILL HAVE SOMEONE REACH OUT TO DTR ELI PLASENCIA, CONTACT NUMBER PROVIDED.
--- NOTE | 2022-08-25 14:31 | P.CDIM_ITS ---
PROVIDER RESPONSE TEXT: To clarify, the appropriate diagnosis supported by the clinical indicators: Other QUERY TEXT: PHYSICIAN'S DOCUMENTATION REQUEST Date of Query: 08/12/2022 08:47 AM EDT Patient Name: Shalonda Murguia Admit Date: 08/04/2022 Dear Serafin Tiwari, A review of the medical record indicates additional documentation may be needed. Please review below and update the documentation accordingly. Clinical Indicators: Cardiology progress note: Assessment/plan - Cardiomyopathy with EF 25-30%. Bilateral infiltrates, pleural effusions. Adding spironolactone, Coreg, She is hypertensive 178/89 H Based on the above, could you clarify the appropriate diagnosis, if significant, that supports the ab ove abnormalities and additional evaluation, monitoring, and/or treatment rendered: Hypertensive cardiomyopathy Dilated cardiomyopathy Ischemic cardiomyopathy Non-ischemic cardiomyopathy Other Other (explain)Clinically unable to determine (explain)Thank you, Sujata Oscar, CCS, CDIS Use of terms such as suspected, likely, concern for, or probable (associated with a specific diagnosi s that is being evaluated, monitored, or treated as if it exists) are acceptable and can be coded in the inpatient se tting, when documented at the time of discharge. Please use your independent medical judgment in providing your response. THIS QUERY IS PART OF THE PERMANENT MEDICAL RECORD
--- NOTE | 2022-08-25 14:34 | P.CDIM_ITS ---
PROVIDER RESPONSE TEXT: To clarify, the appropriate diagnosis supported by the clinical indicators: Other (explain): NOT HYPOCALCEMIA. APPLY THE FORMULA TO CORRECT LOW CALCIUM FOR HYPOALBUMINEMIA. QUERY TEXT: PHYSICIAN'S DOCUMENTATION REQUEST Date of Query: 08/12/2022 10:24 AM EDT Patient Name: Shalonda Murguia Admit Date: 08/04/2022 Dear Serafin Tiwari, A review of the medical record indicates additional documentation may be needed. Please review below and update the documentation accordingly. Clinical Indicators: LAB FINDINGS: calcium 7.6 L Based on the above, is there a diagnosis that correlates with the lab findings above: Hypocalcemia Labs indicate a diagnosis of (please specify) Other Other (explain)Clinically unable to determine (explain)Thank you, Sujata Oscar, CCS, CDIS Use of terms such as suspected, likely, concern for, or probable (associated with a specific diagnosi s that is being evaluated, monitored, or treated as if it exists) are acceptable and can be coded in the inpatient se tting, when documented at the time of discharge. Please use your independent medical judgment in providing your response. THIS QUERY IS PART OF THE PERMANENT MEDICAL RECORD
== END 2022-08-13 16:39 | disposition home health service (06) | DRG 720 ==
LOC: HO.ED 08-04 02:14 → HO.EDOVER 08-04 06:43 → HO.IMC 08-04 14:26
PROVIDERS: Emergency Medicine; Family Medicine; Hospitalist; Nurse Practitioner Acute Care; Student in an Organized Health Care Education/Training Program; Admitting Provider Internal Medicine; Emergency Provider Emergency Medicine; PCP Internal Medicine; Visit Provider Hospitalist
DX: A41.9 Sepsis, unspecified organism (principal); R65.21 Severe sepsis with septic shock; E43 Unspecified severe protein-calorie malnutrition; I50.21 Acute systolic (congestive) heart failure; J18.9 Pneumonia, unspecified organism; L89.220 Pressure ulcer of left hip, unstageable; L89.120 Pressure ulcer of left upper back, unstageable; E87.0 Hyperosmolality and hypernatremia; F03.90 Unspecified dementia, unspecified severity, without behavioral disturbance, psychotic disturbance, mood disturbance, and anxiety; I11.0 Hypertensive heart disease with heart failure; E86.0 Dehydration; E87.6 Hypokalemia; Z68.1 Body mass index [BMI] 19.9 or less, adult; R09.02 Hypoxemia; Z20.822 Contact with and (suspected) exposure to COVID-19; Z87.891 Personal history of nicotine dependence; Z79.899 Other long term (current) drug therapy
CPT/HCPCS: 36415; 36600; 71045; 80048; 80053; 80076; 80202; 80307; 81001; 82140; 82565; 82803; 83605; 83690; 83735; 83880; 84145; 84443; 84484; 85007; 85025; 85027; 85610; 87040; 87635; 92526; 92610; 92950; 93005; 93306; 94660; 97163; 99285; J0456; J0696; J1650; J1940; J2543; J2930; J3370; J3371; J3475; P9047; Q9957

== ENCOUNTER 2022-09-18 14:45 | Emergency (ER) | payer OTHER, SELFPAY ==
--- NOTE | ~2022-09-18 | CT_ITS ---
EXAMINATION: CT HEAD WITHOUT CONTRAST CLINICAL INFORMATION: Altered mental status. COMPARISON: CT head 11/04/2019. TECHNIQUE: Contiguous axial imaging was performed from the skull base to vertex without intravenous administration of contrast. This CT examination was performed using dose optimization techniques as appropriate, variously including the following: *Automated exposure control *Adjustment of mA and/or kV according to patient size (this includes techniques or standardized protocols for targeted exams where dose is matched to indication/reason for exam; i.e. extremities or head) *Use of iterative reconstruction technique DLP: 804 mGy-cm FINDINGS: There is no evidence of acute intracranial hemorrhage or edematous territorial infarction. A few foci of hypoattenuation in the periventricular and deep white matter are consistent with mild microangiopathy. Callejas-white matter differentiation is preserved. Proportional prominence of the ventricles and sulcal spaces. No evidence for obstructive hydrocephalus. No abnormal mass effect or midline shift. No extra-axial fluid collections. Redemonstration of nonspecific diffuse sclerosis throughout the bony calvarium as well as hyperostosis frontalis interna. Redemonstration of dural ossification is seen in the coronal views. No acute osseous or soft tissue abnormalities. The mastoid air cells and paranasal sinuses are clear. CT/CT head/brain wo IV con IMPRESSION: 1. No evidence of acute intracranial hemorrhage or edematous territorial infarction. 2. Redemonstration of nonspecific diffuse sclerosis throughout the bony calvarium, if not previously obtained further evaluation with a whole body nuclear medicine bone scan could be obtained. 3. 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
[2022-09-18 15:13] VITALS: BP 102/68; BP 109/71; PULSE 67; PULSE 70; RESP 14; TEMP 36.9; O2SAT 97; O2SAT 98; BMI 22.8
--- NOTE | 2022-09-18 15:26 | PC.NURSE ---
Arrived from home via ems. Patient lethargic and only arousable to deep sternal rub. Opens eyes only for brief periods of time. EMS arrived with multiple bottles of medications belonging to patient. Daughter at bedside stating her mom lives with her and she gave her her medications this am. States trazodone is new and received the first dose today. States after taking medication her mom become like this . Medications returned to daughter
[2022-09-18 15:30] VITALS: BP 112/74; PULSE 63; RESP 18; TEMP 36.8; O2SAT 100
--- NOTE | 2022-09-18 15:32 | PC.NURSE ---
Patient incont of large semi formed BM, incont care provided. rectal temp 98.2, multiple old healing pressure areas noted on bony prominences. Daughter states patient needs asisst with eating and at baseline is incont. Open eyes for short periods of time while being changed. LETTY.
--- OUTSIDE RECORDS SUMMARY | 2022-09-18 15:46 | XMS_ITS | Patient Health Record ---
Author Name Unknown Organization [facility] Address [address], [place] [id number] Care Team Providers Care Automatic Machine Attendant Name Role Phone [facility] Nursing Unavailable [phone] ENCOUNTERS from 1965 to 2022-09-18 Encounter Location Date Provider Diagnosis [facility] [address], [place] [id number] Jan, Nursing [facility] SOCIAL HISTORY Sex Assigned At : Social History Observation Description Sex Assigned At Unknown REASON FOR REFERRAL No Information REASON FOR VISIT No Information MENTAL STATUS No Information PLAN OF TREATMENT No Information Insurance Providers Payer Name Payer Address Payer Phone Insured Name Patient Relationship to Insured Coverage Start Date Coverage End Date Subscriber Number Group Number [place] [address] [facility] [id number] Mukesh Murguia Self - patient is the insured [id number]
[2022-09-18 16:22] LABS: MANUAL DIFF FLAG NO
[2022-09-18 16:27] LABS: Basophils Percent Auto 0.4 % (0-2); Eosinophils Percent Auto 0.5 % (0-4); Hematocrit 35.6 % (37.0-47.0); Hemoglobin 11.1 g/dl (12.0-16.0); Imm Gran Abs Auto 0.03 X10*3/uL (0.00-0.03); Imm Gran Pct Auto 0.4 % (0.0-0.4); Lymphocytes Absolute Auto 2.2 X10*3/uL (1.2-4.9); Lymphocytes Percent Auto 27.3 % (20-40); Mean Corpuscular HGB Conc 31.2 g/dl (31.0-35.0); Mean Corpuscular Hemoglobin 30.6 pg (27.0-33.0); Mean Corpuscular Volume 98.1 fL (80.0-98.0); Mean Platelet Volume 9.8 fL (9.4-12.3); Monocytes Absolute Auto 0.7 X10*3/uL (0.1-1.2); Neutrophils Percent Auto 62.4 % (45-73); Platelet Count 354 X10*3/uL (160-400); Red Blood Count 3.63 X10*6/uL (4.20-5.50); Red Cell Distribution Width 13.3 % (11.0-16.0)
[2022-09-18 16:40] LABS: Alanine Aminotransferase 101 U/L (0-31); Alkaline Phosphatase 62 U/L (39-117); Anion Gap 8 (12-20); Aspartate Amino Transferase 54 U/L (5-31); Bilirubin Total 0.4 mg/dL (0.0-1.0); Blood Urea Nitrogen 14 mg/dL (9-16); Calcium 8.5 mg/dL (8.4-10.2); Carbon Dioxide 31 mmol/L (22-29); Chloride 109 mmol/L (96-108); Creatinine Clr Calc Pharmacy 100.3; Estimated Glomerular Filt Rate > 60; Glucose Random 73 mg/dL (60-115); Magnesium 1.9 mg/dL (1.6-2.6); Potassium 3.9 mmol/L (3.3-5.1); Sodium 144 mmol/L (135-145); Total Protein 5.9 g/dL (6.5-8.0)
[2022-09-18 16:48] LABS: COVID-19 Test Negative (Negative); IDNOW Serial# 08D9AD1C
--- NOTE | 2022-09-18 16:58 | PC.NURSE ---
Returned from CT, more alert, eyes open, tracking staff and daughter. Unable to answer yes or no question. Incontinent of large amount of urine
[2022-09-18 17:04] VITALS: BP 137/86; PULSE 60; RESP 18; O2SAT 99
--- NOTE | 2022-09-18 17:36 | ED.AMS ---
HPI - Altered Mental Status General Chief Complaint: Altered Mental Status Stated Complaint: AMS Time Seen by Provider: 09/18/22 16:49 Source: family (Daughter), EMS and drum attendant Mode of arrival: EMS Limitations: altered mental status (Dementia) History of Present Illness HPI narrative: 57-year-old female history of HTN, dementia, depression brought in by daughter for evaluation of mental status change. Patient normally is bed ridden due to advanced dementia patient was started on trazodone 1st dose was given this morning daughter noticed that the patient is lethargic more than usual on in the morning, no specific complaint otherwise. Patient is nonverbal and non historian at baseline history was obtained from daughter. Patient in the emergency department appear at her baseline as per family with no further concern of mental status change. Related Data Previous Rx's Medication Instructions Recorded fluoxetine 10 mg capsule 10 mg PO DAILY 90 days #90 caps 05/21/22 risperidone 0.5 mg tablet 0.5 mg PO BID 30 days #60 tabs 05/21/22 acetaminophen 325 mg tablet 650 mg PO Q6H PRN Pain, Mild (Pain 08/13/22 Scale 1-3) #30 tabs collagenase clostridium histo. 250 1 appl topical DAILY 30 days #30 08/13/22 unit/gram topical ointment (Santyl) grams prednisone 10 mg tablet 10 mg PO DAILY #10 tabs 08/13/22 sacubitril 24 mg-valsartan 26 mg 1 tab PO BID #3 tabs 08/13/22 tablet (Entresto) underpads (Bed Underpads) #150 ea 08/18/22 wipes #240 ea 08/18/22 adult diapers #240 ea 08/26/22 carvedilol 3.125 mg tablet 3.125 mg PO BID #180 tabs 09/16/22 furosemide 40 mg tablet 40 mg PO DAILY #90 tabs 09/16/22 spironolactone 25 mg tablet 25 mg PO DAILY #90 tabs 09/16/22 trazodone 50 mg tablet 50 mg PO BEDTIME 90 days #90 tabs 09/16/22 Allergies Allergy/AdvReac Type Severity Reaction Status Date / Time No Known Allergies Allergy Verified 08/29/22 10:53 [No Known Allergies*] Review of Systems Review of Systems: All other systems are reviewed and are negative Constitutional: Reports as per HPI and Reports no additional constitutional complaints Eyes: Reports as per HPI and Reports no additional eye complaints Reports system reviewed and no additional complaints, except as documented Cardiovascular: Reports as per HPI and Reports no additional cardiovascular complaints Respiratory: Reports as per HPI and Reports no additional respiratory complaints Gastrointestinal: Reports as per HPI and Reports no additional gastrointestinal complaints Genitourinary: Reports no additional female genitourinary complaints Musculoskeletal: Reports no additional musculoskeletal complaints Skin/Breast: Reports system reviewed and no additional complaints, except as docu Psychiatric: Reports no additional psychiatric complaints Endocrine: Reports no additional endocrine complaints Hematologic/Lymphatic: Reports no additional hematologic/lymphatic complaints Allergic/Immunologic: Reports no additional allergic/immunologic complaints Reports system reviewed and no additional complaints, except as documented and Reports Abnormal speech present [facility] Past Medical History Medical History B12 deficiency Bowel and bladder incontinence Cardiomyopathy Dementia Depression Encounter to establish care Hypertension SBO (small bowel obstruction) Surgical History History of section History of incisional hernia repair History of ventral hernia repair Family History Family History Father Pacemaker Chronic mental illness Hypertension Mother Hypertension Chronic mental illness Family/Other Chronic mental illness Brother No problems noted. Sister No problems noted. Son No problems noted. Daughter No problems noted. Daughter No problems noted. Daughter No problems noted. Social History Social History Household Members: Family Household Members Other:: lives with son Housing: Apartment Do you presently have visiting nurse or other home services: Yes (2 days per week) Unable to assess alcohol history related to: Unable to respond Alcohol intake: former Patient Tobacco Use Status: Former Tobacco user Tobacco use type: Cigarette Years Smoked: 20 Smoked in Last 30 Days: No e-Cigarette/Vaping Use: Never Used Second Hand Smoke Exposure: No Use of substances other than those prescribed or required for medical reasons: No Advance Directives: Yes Advance Directives on File: Yes Advance Directives Date on File: 08/04/22 service: No Physical Exam ED Vital Signs: Vital Signs - 24 hr 09/18/22 15:13 09/18/22 15:30 09/18/22 17:04 Temperature 98.4 F 98.2 F Pulse Rate 67 63 60 Respiratory Rate 14 18 18 Blood Pressure 109/71 112/74 137/86 Pulse Oximetry 98 100 99 Oxygen Delivery Method Room Air Room Air Room Air BMI result Body Mass Index 22.8 Vital signs have been reviewed as appeared to be correct. Blood pressure normal. Heart rate normal. Respiration rate normal. Temperature normal. Oxygen saturation normal. Appearance: No acute distress. Nonverbal at baseline. Head: Normal external exam. Normocephalic. Atraumatic. No [place] signs noted. No raccoon eyes noted Eyes: PERRLA. EOMI. Conjunctiva and sclera normal. Eyelids normal. ENT: TM's Normal. Pharynx normal. Uvula midline. Moist mucous membranes. No trismus noted. No drooling noted. No muffled voice noted. Neck: Normal inspection. Neck supple. FROM. No adenopathy. Thyroid Normal. No meningeal signs. No neck mass noted. CVS: Normal heart rate and rhythm. Heart sound normal. No murmurs noted. Pulses normal throughout. Respiratory: No respiratory distress. Painless inspiration. Breath sounds normal. No wheezes/rales/rhonchi noted. Chest nontender. No accessory muscle usage noted or decreased air movement noted. Abdomen: Soft and nontender. Bowel sounds normal in all 4 quadrants. No distention noted. No organomegaly noted. No visible injury noted. Back: No CVA tenderness. Full range of motion noted. Skin: Skin warm and dry. Normal skin color. Normal skin turgor. No rashes/lesions/lacerations noted. Extremities: No lower extremity edema. Extremities exhibit normal range of motion. Extremities nontender. Neuro: Cranial nerve exam: II-XII are grossly intact No motor deficit. No sensory deficit. Reflexes normal. Course Reevaluation(s) Reevaluation #1: 57-year-old female history of advanced dementia noticed to be more sleeping this morning first-time taking her trazodone after not taking it for a month, unremarkable workup for mental status change in the emergency department. Time: 17:47 Medical Decision Making Differential Diagnosis Differential Diagnoses: The differential diagnosis associated with the presentation includes (Mental status change, intracranial hematoma, intracranial mass, electrolyte abnormality, severe anemia, UTI, worsening of baseline dementia apparently) Admission/Observation Consideration of admission/observation: Escalation of care including admission/observation considered Lab Data MDM Lab Attestation statement: I reviewed the patient's lab results. 09/18/22 16:16 09/18/22 16:16 Labs: Lab Results 09/18/22 09/18/22 09/18/22 Range/Units 16:16 16:16 16:16 WBC 8.0 (4.8-10.8) X10*3/uL RBC 3.63 L (4.20-5.50) X10*6/uL Hgb 11.1 L (12.0-16.0) g/dl Hct 35.6 L (37.0-47.0) % MCV 98.1 H (80.0-98.0) fL MCH 30.6 (27.0-33.0) pg MCHC 31.2 (31.0-35.0) g/dl RDW 13.3 (11.0-16.0) % Plt Count 354 (160-400) X10*3/uL MPV 9.8 (9.4-12.3) fL Immature Gran % (Auto) 0.4 (0.0-0.4) % Neut % (Auto) 62.4 (45-73) % Lymph % (Auto) 27.3 (20-40) % Stearns % (Auto) 9.0 (2-11) % Eos % (Auto) 0.5 (0-4) % Baso % (Auto) 0.4 (0-2) % Lymph # (Auto) 2.2 (1.2-4.9) X10*3/uL Stearns # (Auto) 0.7 (0.1-1.2) X10*3/uL Eos # (Auto) 0.0 (0.0-0.4) X10*3/uL Baso # (Auto) 0.0 (0.0-0.2) X10*3/uL Abs Immat Gran (auto) 0.03 (0.00-0.03) X10*3/uL Absolute Neuts (auto) 5.0 (2.0-8.3) x10*3/uL Absolute Nucleated RBC 0.000 (0.0-0.012) X10*3/uL Nucleated RBC % (auto) 0.0 (0.0-0.2) /100WBC Sodium 144 (135-145) mmol/L Potassium 3.9 (3.3-5.1) mmol/L Chloride 109 H (96-108) mmol/L Carbon Dioxide 31 H (22-29) mmol/L Anion Gap 8 L (12-20) BUN 14 (9-16) mg/dL Creatinine 0.57 (0.5-1.4) mg/dL Estim Creat Clear Calc 100.3 Estimated GFR > 60 Random Glucose 73 (60-115) mg/dL Calcium 8.5 D (8.4-10.2) mg/dL Magnesium 1.9 (1.6-2.6) mg/dL Total Bilirubin 0.4 (0.0-1.0) mg/dL AST 54 H (5-31) U/L ALT 101 H (0-31) U/L Alkaline Phosphatase 62 (39-117) U/L Total Creatine Kinase 27 (26-140) U/L Total Protein 5.9 L (6.5-8.0) g/dL Albumin 3.0 L (3.5-5.0) g/dL COVID-19 ([facility]ERT[facility]) Negative (Negative) COVID-19 Clin Com See Note Independent Interpretation I performed an independent interpretation of an: CT Scan (Head) Interpretation: No evidence of acute intracranial pathology, nonspecific diffuse sclerosis the skull. Radiology Impression Discussion of test interpretation with radiology: I have reviewed the radiologist's reading. Discharge Plan Discharge Clinical Impression: Dementia, Medication side effect Patient Disposition: Home, Self-Care Instructions: Dementia (ED) Additional Instructions: Need to follow-up with PCP for evaluation of nonspecific diffuse sclerosis of the skull area. Prescriptions: No Action fluoxetine 10 mg capsule 10 mg PO DAILY 90 Days Qty: 90 1RF risperidone 0.5 mg tablet 0.5 mg PO BID 30 Days Qty: 60 4RF (DME) wipes See Rx Instructions .Route .MEDSUPPLY Qty: 240 6RF Rx Instructions: As directed (DME) underpads [Bed Underpads] Pad See Rx Instructions .Route Qty: 150 6RF Rx Instructions: As directed (DME) adult diapers small See Rx Instructions .Route .MEDSUPPLY Qty: 240 11RF Rx Instructions: As directed spironolactone 25 mg tablet 25 mg PO DAILY Qty: 90 1RF Protocol: Hold for SBP< HOLD for SBP < : 90 furosemide 40 mg tablet 40 mg PO DAILY Qty: 90 1RF Protocol: Hold for SBP< HOLD for SBP < : 90 carvedilol 3.125 mg tablet 3.125 mg PO BID Qty: 180 1RF Protocol: Hold for SBP/HR < HOLD for SBP < : 90 HOLD for HR < : 60 trazodone 50 mg tablet 50 mg PO BEDTIME 90 Days Qty: 90 0RF acetaminophen 325 mg Tablet 650 mg PO Q6H PRN (Reason: Pain, Mild (Pain Scale 1-3)) Qty: 30 0RF Santyl 250 unit/gram Ointment 1 appl topical DAILY 30 Days Qty: 30 0RF Protocol: Apply to: Apply to: wound Entresto 24-26 mg Tablet 1 tab PO BID Qty: 3 0RF Protocol: Hold for SBP< HOLD for SBP < : 90 prednisone 10 mg tablet 10 mg PO DAILY Qty: 10 0RF Rx Instructions: take 2 tabs daily x 3 days than take 1 tab daily x 4 days than stop Referrals: Camila Rouse MD [Primary Care Provider] -
[2022-09-18 17:51] LABS: Appearance Urine Clear; Color Urine Yellow; Glucose Urine UA Negative (Negative); Leukocyte Esterase Urine Negative (Negative); Nitrite Urine Negative (Negative); PH 6.5 (5.0-9.0); Urine Blood Negative (Negative); Urine Ketones Negative (Negative); Urine Protein Negative (Neg-Trace)
--- NOTE | 2022-09-18 18:44 | PC.NURSE ---
Discharge instructions reviewed with daughter who verbalized understanding. Daughter states patient will need transport home. Daughter states address is [address] in [place]. trade [employer] secretary to book ride home, daughter aware.
--- NOTE | 2022-09-18 18:48 | PC.NURSE ---
daughter took all personal belongings home
[2022-09-18 18:49] VITALS: BP 144/78; PULSE 62; RESP 16; TEMP 36.8; O2SAT 98
[2022-09-18 19:32] VITALS: BP 152/87; PULSE 64; RESP 16; TEMP 36.2; O2SAT 97
== END 2022-09-18 20:52 | disposition home or self-care (01) ==
PROVIDERS: Physician Assistant Medical; Emergency Provider Emergency Medicine; PCP Internal Medicine
DX: R53.83 Other fatigue (principal); T43.215A Adverse effect of selective serotonin and norepinephrine reuptake inhibitors, initial encounter; Y92.039 Unspecified place in apartment as the place of occurrence of the external cause; F03.90 Unspecified dementia, unspecified severity, without behavioral disturbance, psychotic disturbance, mood disturbance, and anxiety; I10 Essential (primary) hypertension; Z79.899 Other long term (current) drug therapy; Z87.891 Personal history of nicotine dependence; Z20.822 Contact with and (suspected) exposure to COVID-19
CPT/HCPCS: 70450; 80053; 81003; 82550; 83735; 85025; 87635; 99284

== ENCOUNTER 2022-11-12 14:32 | Outpatient (AMB) | payer OTHER, SELFPAY ==
--- NOTE | 2022-11-12 14:35 | MHC.PC.OV ---
Vital Signs 11/12/22 14:37 Height 5 ft 5 in Weight 119 lb 0.794 oz BMI 19.8 BP 116/90 H Blood Pressure Location Lt brachial Position Sitting Pulse 80 Pulse Source Pulse Oximeter Temp Source Skin Pulse Oximetry (%) 97 Oxygen Delivery Method Room Air Intake Visit Reasons: [facility] 08/13 pneumonia, dehydration, CHF. Intake Note: Patient is here for hospital discharge follow up. Patient was discharged from [facility] on 08/13/22 . Staffing Associate Required: Yes Staffing Associate Language: Azerbaijani Allergies No Known Allergies [No Known Allergies*] Allergy (Verified 11/12/22 14:54) Medication List - Last Reconciled 11/12/22 by TIFFANIE Lopez acetaminophen 650 mg (2 x 325 mg) PO Q6H PRN [adult diapers As directed] blood pressure monitor As directed carvedilol 3.125 mg See Protocol PO BID collagenase clostridium histo. (Santyl) 1 appl See Protocol topical DAILY 30 days fluoxetine 10 mg PO DAILY 90 days furosemide 40 mg See Protocol PO DAILY risperidone 0.5 mg PO BID 30 days sacubitril-valsartan 24-26 mg (Entresto) 1 tab See Protocol PO BID spironolactone 25 mg See Protocol PO DAILY spironolactone 50 mg PO DAILY 90 days trazodone 50 mg PO BEDTIME 90 days underpads (Bed Underpads) As directed [wipes As directed] Tobacco use date assessed: 11/12/22 Dental Screening Dental Screen Date: 11/12/22 Did you have a dental visit in the last 12 months?: No Did you have a dental problem in the last 6 months where you did not have access to dental care?: No HPI [facility] 08/13 pneumonia, dehydration, CHF. HPI Details Patient is a 57-year-old female who presents today to follow-up after [facility] discharge. Admission date 08/04/2022, discharge date 08/13/2022. Discharge diagnosis septic shock, pneumonia, hypernatremia. Per discharge summary: Chief Complaint: increasing weakness 57-year-old female with past medical history of hypertension, dementia, depression, is brought in from home after visiting nurse found patient to be increasingly more weak, and sleeping on an air mattress for days at did not have any air in it.? Patient is not able to give me much history.? She has dementia and other psychiatric conditions.? Patient lives with her family, attempt was made to call the family and waiting for a call back.? It appears the patient has multiple pressure ulcers and multiple locations of her body, she is incontinent of urine. Unable to obtain much other history On arrival to the ED patient noted to have a temp of 94.7 degrees, satting 89% on room air Patient was placed on warming blanket but did become hypotensive, patient received 4 L of fluid with slight improvement her blood pressure Labs are significant for WBC count of 16.8, hematocrit of 11.7, hematocrit 36.1, sodium of 147, BUN of 75, lactic acid of 3.1 which resolved after fluids, AST of 132, ALT of 120, alk-phos of 141, Chest x-ray showed patchy mild and basilar left lung opacity suspicious for pneumonia Patient started on IV antibiotics, will be admitted for further management. hospital course: 57yo F with advanced dementia found by visiting nurse to be on air mattress without air in it; found to have multiple pressure ulcers + PNA, found to have severe LV systolic dysfunction # septic shock due to CAP, completed 7d of vanco + pip-angely, CXR improved, off O2, BCx negative hypotension resolved, afebrile, finished course of antibiotics on 08/11/22, wean off steroids- had been on methylprednisolone 60 mg q6h until 08/11/22, was on prednisone 40 mg daily since, will discharge on prednisone tapering dose for 7 more days. # acute HFrEF treated with diuretics with good response, echo August 08 showed EF 25-30%, significantly elevated right atrial pressures, moderate pulmonary hypertension, moderate global hypokinesis, indeterminate diastolic function, continue spironolactone, Entresto, carvedilol, furosemide po, appears euvolemic at this time. # hyperNa- resolved after IV H20 repletion # hypoMg - repleted, repeat magnesium 2 # hypoK - resolved potassium 3.8 recommend to follow potassium level on August 18 # pressure ulcers, unstageable, to left shoulder and left hip Today, patient is accompanied by her daughter Carin provides history for the patient, patient is nonverbal. Daughter reports that patient receives all medications as prescribed. 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 Left shoulder and left hip ulcers are healed. Daughter reports that patient eating and drinking good. 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 Patient has referral to see Neurology although she was not seen yet for dementia, will follow-up on this. 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 08/2022 CT/CT head/brain wo IV con IMPRESSION: 1. No evidence of acute intracranial hemorrhage or edematous territorial infarction. 2. Redemonstration of nonspecific diffuse sclerosis throughout the bony calvarium, if not previously obtained further evaluation with a whole body nuclear medicine bone scan could be obtained. 3. 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 [facility] Medical History (Updated 11/12/22 @ 15:38 by TIFFANIE Lopez) Pressure ulcer Cardiomyopathy Bowel and bladder incontinence Encounter to establish care Depression Hypertension Dementia SBO (small bowel obstruction) B12 deficiency Surgical History History of incisional hernia repair History of ventral hernia repair History of section Family History Father Pacemaker Chronic mental illness Hypertension Mother Hypertension Chronic mental illness Family/Other Chronic mental illness Brother No problems noted. Sister No problems noted. Son No problems noted. Daughter No problems noted. Daughter No problems noted. Daughter No problems noted. Social History Household Members: Family Household Members Other:: lives with son Housing: Apartment Do you presently have visiting nurse or other home services: Yes (2 days per week) Unable to assess alcohol history related to: Unable to respond Alcohol intake: former Patient Tobacco Use Status: Former Tobacco user Tobacco use type: Cigarette Years Smoked: 20 e-Cigarette/Vaping Use: Never Used Second Hand Smoke Exposure: No Advance Directives Date on File: 08/04/22 service: No Cognitive needs: No Hearing needs: No Vision needs: No Questionnaire PHQ-9 Over the last 2 weeks, how often have you been bothered by any of the following problems? 1. Little interest or pleasure in doing things: not at all 2. Feeling down, depressed, or hopeless: not at all 3. Trouble falling or staying asleep, or sleeping too much: nearly every day (lack of sleep ) 4. Feeling tired or having little energy: not at all 5. Poor appetite or overeating: not at all 6. Feeling bad about yourself - or that you are a failure or have let yourself or your family down: not at all 7. Trouble concentrating on things, such as reading the newspaper or watching television: not at all 8. Moving or speaking so slowly that other people could have noticed. Or the opposite - being so fidgety or restless that you have been moving around a lot more than usual: not at all 9. Thoughts that you would be better off or of hurting yourself in some way: not at all Total score: 3 Depression Screening Interpretation: Negative 87622 - PHQ-9 Billing: Yes Source: Developed by Drs. Shravan Ramos, Rayna Tenorio, Nav Wolff and colleagues, with an educational ninoska from [employer]. Thrive Questionnaire Date Thrive assessed: 04/16/22 I am a: Patient What is your living situation today?: I have a steady place to live Within the past 12 months, did the food you bought not last and you didn't have the money to get more?: Never true Within the past 12 months, did you worry whether your food would run out before you got money to buy more?: Never true Currently or been in a relationship where the following occur: no concerns reported AUDIT C Alcohol Use Questionnaire (AUDIT-C) 1. How often do you have a drink containing alcohol?: Never 3. How often do you have six or more drinks on one occasion?: Never Total Score: 0 Score Reviewed/Action Taken: No ERVIN-7 AMB Questionnaire ERVIN-7 Date ERVIN - 7 assessed: 04/16/22 Feeling nervous, anxious, or on edge: 0 = Not at all Not being able to stop or control worryin = Not at all Worrying too much about different things: 0 = Not at all Trouble relaxin = Not at all Being so restless that it is hard to sit still: 0 = Not at all Becoming easily annoyed or irritable: 0 = Not at all Feeling afraid as if something awful might happen: 0 = Not at all Total ERVIN-7 score (0-4 normal; 5-9 mild; 10-14 moderate; 15-21 severe): 0 Source: Developed by Drs. Shravan Ramos, Rayna Tenoroi, Nav Wolff and colleagues, with an educational ninoska from [employer]. ERVIN-7 Assessment Billing ERVIN-7 Assessment Tool: ERVIN-7 Assessment 97722 Review of Systems Const Unobtainable due to mental condition and Unobtainable due to mental status Physical exam (Primary Care) Vital Signs: Last Vital Signs Pulse 80 11/12/22 14:37 BP 116/90 H 11/12/22 14:37 Pulse Ox 97 11/12/22 14:37 Oxygen Delivery Method Room Air 11/12/22 14:37 BMI result Body Mass Index 19.8 Tobacco/Smoking Status: Tobacco use Status Tobacco use date assessed 11/12/22 11/12/22 14:36 Patient Tobacco Use Status Former Tobacco user 11/12/22 14:36 Tobacco use type Cigarette 11/12/22 14:36 e-Cigarette/Vaping Use Never Used 11/12/22 14:36 PHQ-9: PHQ-9 Score PHQ-9: Total score 3 11/12/22 14:46 Depression Screening Interpretation: Negative Thrive Assessment: Date of Thrive Assessment Date Thrive assessed 04/16/22 11/12/22 14:36 Currently or been in a relationship where the following occur: no concerns reported Const General: cooperative and no acute distress HENMO Head: Yes normocephalic and Yes atraumatic Mouth: oropharynx normal and moist mucous membranes Throat: Yes posterior oropharynx normal Eyes General: appearance normal, both eyes and all related structures Pupils: Equal, round and reactive pupils present Neck Neck: Yes normal visual inspection, Yes full ROM and Yes no lymphadenopathy Resp Effort & Inspection: normal respiratory effort and able to speak in complete sentences Auscultation: clear to auscultation bilaterally, no crackles, no rales, no rhonchi and no wheezes Cardio Rate: regular rate Rhythm: regular rhythm Heart sounds: S1 normal heart sound present and S2 normal heart sound present GI Auscultation: normal bowel sounds Skin Other: Left shoulder and left hip with intact healed scars, no open wounds noted Neuro Cranial nerves: Yes Equal, round and reactive pupils present Extrem General: Yes full ROM and No edema Assessment and Plan Assessment & Plan (1) Hospital discharge follow-up: Code(s): Z09 - Encounter for follow-up examination after completed treatment for conditions other than malignant neoplasm (2) Diffuse sclerosis: Comment: of the skull Code(s): G37.0 - Diffuse sclerosis of central nervous system Plan: See HPI for details Will refer to Hematology/Oncology for an evaluation and treatment (3) CHF (congestive heart failure): Code(s): I50.9 - Heart failure, unspecified Plan: Cardiology referral Continue spironolactone, Entresto, carvedilol, furosemide (4) Insomnia: Code(s): G47.00 - Insomnia, unspecified Plan: Start Seroquel 25 mg at bedtime p.r.n. (5) Hypertension: Code(s): I10 - Essential (primary) hypertension Plan: Goal BP equal or less than 140/90 Continue current treatment Plan Patient's daughter reports that they would like to see Dr. Cabrera in the future Orders: Orders Comprehensive Met. Panel Today I10 - Essential (primary) hypertension Referrals Cardiology Referral I50.9 - Heart failure, unspecified Hematology & Oncology Referral G37.0 - Diffuse sclerosis of central nervous system Medications: New quetiapine (Seroquel) 25 mg PO BEDTIME PRN 30 tabs 0RF insomnia G47.00 - Insomnia, unspecified Refilled spironolactone 25 mg See Protocol PO DAILY 90 tabs 1RF I10 - Essential (primary) hypertension fluoxetine 10 mg PO DAILY 90 days 90 caps 1RF risperidone 0.5 mg PO BID 30 days 60 tabs 4RF sacubitril-valsartan 24-26 mg (Entresto) 1 tab See Protocol PO BID 180 tabs 0RF I10 - Essential (primary) hypertension Discontinued trazodone Discontinued Reason: Patient no longer taking 50 mg PO BEDTIME 90 days 90 tabs 0RF spironolactone Discontinued Reason: Patient no longer taking 50 mg PO DAILY 90 days 90 tabs 1RF Coding Level of Care Code Est Pt Level 4 (17228) Diagnoses Hospital discharge follow-up Z09 Diffuse sclerosis G37.0 CHF (congestive heart failure) I50.9 Insomnia G47.00 Hypertension I10 Additional Codes ERVIN-7 Assessment Billing - ERVIN-7 Assessment Tool: ERVIN-7 Assessment 12994 ([id number])
[2022-11-12 14:37] VITALS: BP 116/90; PULSE 80; O2SAT 97; BMI 19.8
== END 2022-11-12 15:23 | disposition home or self-care (01) ==
PROVIDERS: PCP Internal Medicine; Visit Provider Nurse Practitioner Family
DX: G37.0 Diffuse sclerosis of central nervous system (principal); I11.0 Hypertensive heart disease with heart failure; I50.9 Heart failure, unspecified; Z09 Encounter for follow-up examination after completed treatment for conditions other than malignant neoplasm; G47.00 Insomnia, unspecified
CPT/HCPCS: 99214

== ENCOUNTER 2023-02-16 13:57 | Outpatient (AMB) | payer OTHER, SELFPAY ==
[2023-02-16 13:59] VITALS: BP 126/76; PULSE 66; BMI 20.9
--- NOTE | 2023-02-16 13:59 | A.OFFVIS_ITS ---
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 (Santyl) 1 appl See Protocol topical DAILY 30 days fluoxetine 10 mg PO DAILY 90 days furosemide 40 mg See Protocol PO DAILY quetiapine (Seroquel) 25 mg PO BEDTIME PRN risperidone 0.5 mg PO BID 30 days sacubitril-valsartan 24-26 mg (Entresto) 1 tab See Protocol PO BID spironolactone 25 mg See Protocol PO DAILY underpads (Bed Underpads) As directed [wipes As directed] HPI HPI Comments History of Present Illness0 Details Pleasant 57 year female who is here for follow-up. She was seen in the hospital in July 2022 when she came with shortness of breath and was initially thought to have pneumonia but then developed congestive heart failure. She was diuresed and was started on guideline directed medical therapy and discharged home. She is now coming for follow-up. She has dementia and as per discussion with the daughter this runs in the family and she was unable to say whether it was ever labeled as as I am her dementia or not. In any case she has advanced dementia and is mostly nonverbal. Most of history is taken from the daughter. She has been taking medications regularly. No shortness of breath, peripheral edema or any other complaints currently. [facility] Medical History (Updated 02/17/23 @ 07:33 by Camila Gambino MD) Dementia Cardiomyopathy Pressure ulcer Bowel and bladder incontinence Encounter to establish care Depression Hypertension SBO (small bowel obstruction) B12 deficiency Surgical History History of incisional hernia repair History of ventral hernia repair History of section Family History Father Pacemaker Chronic mental illness Hypertension Mother Hypertension Chronic mental illness Family/Other Chronic mental illness Brother No problems noted. Sister No problems noted. Son No problems noted. Daughter No problems noted. Daughter No problems noted. Daughter No problems noted. Social History Household Members: Family Household Members Other:: lives with son Housing: Apartment Do you presently have visiting nurse or other home services: Yes (2 days per week) Unable to assess alcohol history related to: Unable to respond Alcohol intake: former Comment: 1:1 Patient Tobacco Use Status: Former Tobacco user Tobacco use type: Cigarette Years Smoked: 20 e-Cigarette/Vaping Use: Never Used Second Hand Smoke Exposure: No Advance Directives Date on File: 08/04/22 service: No Current occupational status: disabled Cognitive needs: No Hearing needs: No Vision needs: No Review of Systems Const Denies chills, Denies daytime sleepiness, Denies fatigue, Denies fever(s), Denies frequent falls, Denies poor appetite, Denies snoring, Denies stops breathing during sleep, Denies weakness, Denies weight gain and Denies weight loss Eyes Denies loss of vision ENT Denies dizziness and Denies hearing loss Card Denies chest pain, Denies claudication, Denies leg edema, Denies lightheadedness, Denies palpitations, Denies dyspnea, Denies dyspnea on exertion and Denies orthopnea Resp Denies cough, Denies excessive phlegm production, Denies dyspnea, Denies dyspnea on exertion, Denies snoring and Denies wheezing GI Denies abdominal pain, Denies hematochezia, Denies change in bowel habits, Denies nausea and Denies vomiting Denies urinary frequency and Denies dysuria Musc Denies arthralgias, Denies muscle weakness, Denies numbness and Denies other (frequent falls) Skin/Breast Denies nail changes and Denies rash Neuro Denies Abnormal speech present, Denies dizziness, Denies frequent falls, Denies loss of vision, Denies memory loss, Denies numbness and Denies weakness Psych Denies depression and Denies memory loss Endo Denies fatigue and Denies palpitations Eusebio/Lymph Reports easy bruising and Reports other (anemia) Aller/Immun Denies wheezing Physical Exam Vital Signs: Last Vital Signs Pulse 66 02/16/23 13:59 BP 126/76 02/16/23 13:59 BMI result Body Mass Index 20.9 GENERAL APPEARANCE: in no acute distress. NECK: no carotid bruit, no significant jugular venous distention. SKIN: no suspicious lesions, warm and dry. HEART: no murmurs, regular rate and rhythm. LUNGS: Clear to auscultation. ABDOMEN: soft, nontender. EXTREMITIES: no edema. PERIPHERAL PULSES: equal. NEUROLOGIC: Demented. Unable to follow simple commands. Oriented to self. Neuro Speech: No Abnormal speech present Office Procedures EKG Details: Sinus rhythm 66 beats per minute, right bundle-branch block, left anterior fascicular block, QTC 459 milliseconds. [id number], Complete Assessment & Plan Assessment & Plan (1) Cardiomyopathy: Code(s): I42.9 - Cardiomyopathy, unspecified Plan [age] year female with advanced dementia who was seen Hospital in July 2022 with new onset congestive heart failure and cardiomyopathy with moderate to severe LV dysfunction and EF 25-30%. She also had mildly increased right ventricular size with normal RV function. Moderate pulmonary hypertension was noticed. She also had mild dilation of aorta. She has been on guideline directed medical therapy. As per the daughter no significant symptoms. We will continue same medications for now. I will arrange a limited echocardiogram to see if LV function has improved in the last 6 months. Follow-up with us in 3 months. Thank you for allowing me to participate in the care of your patient. Please feel free to contact me if you have any questions. Orders: Orders CA echo limited 02/16/23 I42.9 - Cardiomyopathy, unspecified Coding Level of Care Code Est Pt Level 3 (40516) Left Without Being Seen Diagnoses Cardiomyopathy I42.9 CPT Codes EKG - CPT: 57939-[id number], Complete ([id number])
== END 2023-02-16 14:34 | disposition home or self-care (01) ==
PROVIDERS: PCP Internal Medicine; Visit Provider Internal Medicine Cardiovascular Disease
DX: I42.9 Cardiomyopathy, unspecified (principal)
CPT/HCPCS: 93010; 99213

== ENCOUNTER → 2023-02-16 13:57 | Outpatient (BNVA) | payer OTHER, SELFPAY | PROVIDERS: PCP Internal Medicine; Visit Provider Internal Medicine Cardiovascular Disease | DX: I42.9 Cardiomyopathy, unspecified (principal) | CPT/HCPCS: 93005; 99212 ==

== ENCOUNTER 2023-02-16 16:20 | Outpatient (AMB) | payer OTHER, SELFPAY ==
[2023-02-16 16:28] VITALS: BP 122/76; BMI 21.0
--- NOTE | 2023-02-16 16:28 | MHC.PC.OV ---
Vital Signs 02/16/23 16:28 Height 5 ft 5 in Weight 126 lb BMI 21.0 BP 122/76 Blood Pressure Location Lt brachial Position Sitting Intake Visit Reasons: Congestive heart failure Intake Note: Patient here for follow up CHF Commercial Sales Consultant Required: No Accompanied by: Daughter Allergies No Known Allergies [No Known Allergies*] Allergy (Verified 02/16/23 16:38) Medication List - Last Reconciled 02/16/23 by Camila Gambino MD acetaminophen 650 mg (2 x 325 mg) PO Q6H PRN [adult diapers As directed] blood pressure monitor As directed carvedilol 3.125 mg See Protocol PO BID collagenase clostridium histo. (Santyl) 1 appl See Protocol topical DAILY 30 days fluoxetine 10 mg PO DAILY 90 days furosemide 40 mg See Protocol PO DAILY quetiapine (Seroquel) 25 mg PO BEDTIME PRN risperidone 0.5 mg PO BID 30 days sacubitril-valsartan 24-26 mg (Entresto) 1 tab See Protocol PO BID spironolactone 25 mg See Protocol PO DAILY underpads (Bed Underpads) As directed [wipes As directed] Tobacco use date assessed: 11/12/22 Dental Screening Dental Screen Date: 02/16/23 Did you have a dental visit in the last 12 months?: No Did you have a dental problem in the last 6 months where you did not have access to dental care?: No Was dental information given to patient?: Patient has dentist HPI HPI Comments History of Present Illness Details This is a 57-year-old female with dementia, insomnia, hypertension and congestive heart failure that comes accompanied by daughter which is the building construction contractor and the historian. Her dementia started about 3 years ago and now she is not able to talk. Has bowel and bladder incontinence using diapers. Able to walk with no assistive device. Daughter has to give her the food. Also bathe her. She needs 247 care due to her mental state. Blood pressure stable. Insomnia well controlled with Seroquel. Last echocardiogram shows ejection fraction 25 to 30%. Follow by cardiology. Has not gain 5 lb in a week. [facility] Medical History (Updated 02/17/23 @ 07:33 by Camila Gambino MD) Dementia Cardiomyopathy Pressure ulcer Bowel and bladder incontinence Encounter to establish care Depression Hypertension SBO (small bowel obstruction) B12 deficiency Surgical History History of incisional hernia repair History of ventral hernia repair History of section Family History Father Pacemaker Chronic mental illness Hypertension Mother Hypertension Chronic mental illness Family/Other Chronic mental illness Brother No problems noted. Sister No problems noted. Son No problems noted. Daughter No problems noted. Daughter No problems noted. Daughter No problems noted. Social History Household Members: Family Household Members Other:: lives with son Housing: Apartment Do you presently have visiting nurse or other home services: Yes (2 days per week) Unable to assess alcohol history related to: Unable to respond Alcohol intake: former Comment: 1:1 Patient Tobacco Use Status: Former Tobacco user Tobacco use type: Cigarette Years Smoked: 20 e-Cigarette/Vaping Use: Never Used Second Hand Smoke Exposure: No Advance Directives Date on File: 08/04/22 service: No Current occupational status: disabled Cognitive needs: No Hearing needs: No Vision needs: No Questionnaire Thrive Questionnaire Date Thrive assessed: 04/16/22 ERVIN-7 AMB Questionnaire ERVIN-7 Date ERVIN - 7 assessed: 04/16/22 Source: Developed by Drs. Shravan Ramos, Rayna Tenorio, Nav Wolff and colleagues, with an educational ninoska from [employer]). Review of Systems Const All systems reviewed & are unremarkable except as noted in HPI and below Eyes Reports no additional complaints, Denies change in vision and Denies other visual disturbances Card Denies chest pain at rest, Denies chest pain with activity, Denies edema, Denies irregular heart rhythm, Denies claudication, Denies dyspnea, Denies dyspnea on exertion, Denies orthopnea, Denies paroxysmal nocturnal dyspnea and Denies slow heart rate Resp Denies cough, Denies dyspnea and Denies dyspnea on exertion GI Denies abdominal pain, Denies change in bowel habits, Denies excessive flatus, Denies nausea and Denies vomiting Denies urinary incontinence, Denies urinary hesitancy and Denies urinary urgency Musc Denies abnormal gait, Denies atrophy, Denies deformity and Denies limited range of motion Skin/Breast Denies bleeding lesions, Denies changing lesions and Denies rash Neuro Denies abnormal gait, Denies behavioral changes and Denies lack of coordination Psych Denies behavioral changes Physical exam (Primary Care) Vital Signs: Last Vital Signs BP 122/76 02/16/23 16:28 BMI result Body Mass Index 21.0 Tobacco/Smoking Status: Tobacco use Status Tobacco use date assessed 11/12/22 02/16/23 16:31 Patient Tobacco Use Status Former Tobacco user 02/16/23 16:31 Tobacco use type Cigarette 02/16/23 16:31 e-Cigarette/Vaping Use Never Used 02/16/23 16:31 Thrive Assessment: Date of Thrive Assessment Date Thrive assessed 04/16/22 02/16/23 16:31 Eyes General: appearance normal, both eyes and all related structures Eyelids: Yes eyelids normal Conjunctivae: conjunctivae normal Neck Neck: Yes normal visual inspection and Yes supple Resp Effort & Inspection: normal respiratory effort Auscultation: clear to auscultation bilaterally Cardio Jugular venous distension: no JVD Rate: regular rate Rhythm: regular rhythm Heart sounds: S1 normal heart sound present and S2 normal heart sound present Neuro General: no focal motor deficits Extrem General: Yes full ROM Office Procedures Flu Questionnaire Does the patient have a severe egg allergy?: No Immunizations flu vacc [id number] 6mos up(PF) 60 mcg(15 mcgx4)/0.5 mL IM syringe Performing Provider: Camila Gambino MD [facility] Documented (not given) by: DO Forrester on 02/16/23 16:57 Reason Not Given: Not Given Assessment and Plan Assessment & Plan (1) Dementia: Code(s): F03.90 - Unspecified dementia, unspecified severity, without behavioral disturbance, psychotic disturbance, mood disturbance, and anxiety Plan: Continue family support. Referred to Neurology. MRI of the head ordered. (2) CHF (congestive heart failure): Code(s): I50.9 - Heart failure, unspecified Qualifiers: Heart failure type: systolic Heart failure chronicity: chronic Qualified Code(s): I50.22 - Chronic systolic (congestive) heart failure Plan: Continue carvedilol and furosemide. The goal is to not gain 5 lb in a week. Follow-up with Cardiology (3) Insomnia: Code(s): G47.00 - Insomnia, unspecified Plan: Continue Seroquel as needed. (4) Hypertension: Code(s): I10 - Essential (primary) hypertension Plan: Continue spironolactone. Blood pressure goal is equal or less than 130/80. Orders: Orders Vitamin D 25-OH Total 02/16/23 E55.9 - Vitamin D deficiency, unspecified Complete Blood Count Auto Diff 02/16/23 D64.9 - Anemia, unspecified IRON PROFILE 02/16/23 D64.9 - Anemia, unspecified Lipid Panel 02/16/23 E78.5 - Hyperlipidemia, unspecified Thyroid Stimulating Hormone 02/16/23 F03.90 - Unspecified dementia, unspecified severity, without behavioral disturbance, psychotic disturbance, mood disturbance, and anxiety MR head/brain wo con 02/16/23 F03.90 - Unspecified dementia, unspecified severity, without behavioral disturbance, psychotic disturbance, mood disturbance, and anxiety Vitamin B12 and Folate 02/16/23 E53.8 - Deficiency of other specified B group vitamins Comprehensive [place]. Panel Fast 02/16/23 F03.90 - Unspecified dementia, unspecified severity, without behavioral disturbance, psychotic disturbance, mood disturbance, and anxiety Syphilis Screen 02/16/23 F03.90 - Unspecified dementia, unspecified severity, without behavioral disturbance, psychotic disturbance, mood disturbance, and anxiety Influenza [id number] Immunization 02/16/23 Z23 - Encounter for immunization Referrals Neurology Referral F03.90 - Unspecified dementia, unspecified severity, without behavioral disturbance, psychotic disturbance, mood disturbance, and anxiety Coding Level of Care Code Est Pt Level 4 (95819) Diagnoses Dementia F03.90 Chronic systolic congestive heart failure I50.22 Heart failure type: systolic Heart failure chronicity: chronic Insomnia G47.00 Hypertension I10 Time Spent (min) 24
== END 2023-02-16 16:54 | disposition home or self-care (01) ==
PROVIDERS: PCP Internal Medicine; Visit Provider Internal Medicine
DX: F03.90 Unspecified dementia, unspecified severity, without behavioral disturbance, psychotic disturbance, mood disturbance, and anxiety (principal); I11.0 Hypertensive heart disease with heart failure; I50.22 Chronic systolic (congestive) heart failure; G47.00 Insomnia, unspecified
CPT/HCPCS: 99214

== ENCOUNTER → 2023-03-24 14:55 | Outpatient (REF) | payer OTHER, SELFPAY ==
--- NOTE | 2023-03-24 14:58 | CA_ITS ---
Transthoracic Echocardiogram Patient (Last, First, Middle): Shalonda Murguia, Gender: Female Date of : 1965 Age: 57 Procedure Date: 03/24/2023 Procedure Type: Transthoracic Echocardiogram Location: OP Height: 162.56 cm Weight: 44.99 kg BSA: 1.45 m2 Heart Rate: bpm BP: 128 / 70 mmHg Radio Aerial Installer: TO Referring MD: Santi Jackson MD Trauma Coordinator: Santi Jackson MD Symptoms: I42.9 - Cardiomyopathy, unspecified Study Quality: Fair Conclusions: - Normal left ventricular cavity size. There is mildly increased left ventricular wall thickness. The left ventricular systolic function is low normal. The visually estimated ejection fraction is between 50-55%. - Normal right ventricular cavity size and systolic function. - Significantly elevated right atrial pressure. Findings Procedure Information The study quality is limited by the patients inability to tolerate the test. Left Ventricle Normal left ventricular cavity size. There is mildly increased left ventricular wall thickness. The left ventricular systolic function is low normal. The visually estimated ejection fraction is between 50-55%. Diastolic function is indeterminate on the basis of available data. There is severe septal asymmetric hypertrophy. Right Ventricle Normal right ventricular cavity size and systolic function. Tricuspid Valve Significantly elevated right atrial pressure. Venous The inferior vena cava is dilated and does not collapse with inspiration. Pericardium/Pleural There is no evidence of pericardial effusion. Prior Study Comparison Changes noted compared to prior study dated: 08/08/2022. LVEF 50-55%, normal RV size and function. Measurements 2D Linear Measurements IVSd: 1.52 0.6-0.9/0.6-1.0 cm LVIDd: 4.41 3.9-5.3/4.2-5.9 cm LVIDd Index: 3.04 2.4-3.2/2.2-3.1 cm/m2 LVIDs: 3.12 2.0-3.6 cm LVPWd: 1.07 0.7-1.1 cm LV Mass: 267.52 67-162/88-224 g LV Mass Index: 184.50 43-95/49-115 g/m2 LVOT Diam: 2.40 3.0+(-)1.3 cm 2D Systolic Function EF 4C: 48.60 >55% EF 2C: 51.90 >55% EF BiP: 51.10 >55% LVOT LVOT Pk Hipolito: 1.06 LVOT Mn Hipolito: 0.69 LVOT VTI: 0.18 LVOT Pk Grad: 4.00 LVOT Mn Grad: 2.00 LVOT Diam: 2.40 LVOT Area: 4.52 Tricuspid Valve RA Press: 15.00 Updated in Other Vendor System with Status of Final Santi Jackson MD electronically signed on 03/24/2023 6:24:50 PM with status of Final
== END ==
LOC: HO.CARD 14:55
PROVIDERS: PCP Internal Medicine; Visit Provider Internal Medicine Cardiovascular Disease
DX: I42.9 Cardiomyopathy, unspecified (principal)
CPT/HCPCS: 93308

== ENCOUNTER → 2023-03-24 14:58 | Outpatient (BNV) | payer OTHER, SELFPAY | PROVIDERS: PCP Internal Medicine; Visit Provider Internal Medicine Cardiovascular Disease | DX: I42.9 Cardiomyopathy, unspecified (principal) | CPT/HCPCS: 93308 ==

== ENCOUNTER 2023-04-10 14:41 | Outpatient (REF) | payer OTHER, SELFPAY ==
--- NOTE | ~2023-04-10 | MR_ITS ---
EXAMINATION: MR head/brain wo con MR/MR head/brain wo con FINDINGS/IMPRESSION: The ordered MRI examination could not be performed due to claustrophobia. The patient may be able to undergo the MRI examination at a later time after receiving pre-treatment for claustrophobia. Only a motion degraded and nondiagnostic sagittal T1 weighted sequence was obtained.
== END 2023-04-10 14:42 | disposition home or self-care (01) ==
LOC: HO.MRI 14:41
PROVIDERS: PCP Internal Medicine; Visit Provider Internal Medicine
DX: F03.90 Unspecified dementia, unspecified severity, without behavioral disturbance, psychotic disturbance, mood disturbance, and anxiety (principal)
CPT/HCPCS: 70551

== ENCOUNTER 2023-05-18 15:03 | Outpatient (AMB) | payer OTHER, SELFPAY ==
[2023-05-18 15:06] VITALS: BP 130/60; PULSE 68; BMI 21.5
--- NOTE | 2023-05-18 15:06 | A.OFFVIS_ITS ---
Intake Vital Signs 05/18/23 15:06 Height 5 ft 5 in Weight 129 lb 3.054 oz BMI 21.5 BP 130/60 Blood Pressure Location Lt brachial Position Sitting Pulse 68 Pulse Source Pulse Oximeter Intake Visit Reasons: 3 month follow up Intake Note: pt its here for her 3mnth f/up/ pt daughter states that she its doing fine. Assistant Professor Surgical Technology Required: Yes Assistant Professor Surgical Technology Name: Ashwini/angelina Accompanied by: Daughter Allergies No Known Allergies [No Known Allergies*] Allergy (Verified 02/16/23 16:38) Medication List - Last Reconciled 05/18/23 by Santi Jackson MD acetaminophen 650 mg (2 x 325 mg) PO Q6H PRN [adult diapers As directed] blood pressure monitor As directed carvedilol 3.125 mg See Protocol PO BID collagenase clostridium histo. (Santyl) 1 appl See Protocol topical DAILY 30 days fluoxetine 10 mg PO DAILY 90 days furosemide 40 mg See Protocol PO DAILY quetiapine (Seroquel) 25 mg PO BEDTIME PRN risperidone 0.5 mg PO BID 30 days sacubitril-valsartan 24-26 mg (Entresto) 1 tab See Protocol PO BID spironolactone 25 mg See Protocol PO DAILY underpads (Bed Underpads) As directed [wipes As directed] HPI HPI Comments History of Present Illness Details Pleasant 57 year female who is here for follow-up. She was seen in the hospital in July 2022 when she came with shortness of breath and was initially thought to have pneumonia but then developed congestive heart failure. She was diuresed and was started on guideline directed medical therapy and discharged home. She is now coming for follow-up. She has dementia and as per discussion with the daughter this runs in the family and she was unable to say whether it was ever labeled as as I am her dementia or not. In any case she has advanced dementia and is mostly nonverbal. Most of history is taken from the daughter. She has been taking medications regularly. No shortness of breath, peripheral edema or any other complaints currently. 05/18/2023: She returns for follow-up. She is accompanied by family. Most of history is taken from family because the patient is nonverbal. No shortness of breath or edema taking medications regularly. No concerns from family. Echocardiography report from March 2023 was discussed. EF has improved to 50 55%. Normal right ventricular cavity size and function. She is doing very well with medical management of cardiomyopathy. [facility] Medical History (Updated 02/17/23 @ 07:33 by Camila Gambino MD) Dementia Cardiomyopathy Pressure ulcer Bowel and bladder incontinence Encounter to establish care Depression Hypertension SBO (small bowel obstruction) B12 deficiency Surgical History History of incisional hernia repair History of ventral hernia repair History of section Family History Father Pacemaker Chronic mental illness Hypertension Mother Hypertension Chronic mental illness Family/Other Chronic mental illness Brother No problems noted. Sister No problems noted. Son No problems noted. Daughter No problems noted. Daughter No problems noted. Daughter No problems noted. Social History Household Members: Family Household Members Other:: lives with son Housing: Apartment Do you presently have visiting nurse or other home services: Yes (2 days per week) Unable to assess alcohol history related to: Unable to respond Alcohol intake: former Comment: 1:1 Patient Tobacco Use Status: Former Tobacco user Tobacco use type: Cigarette Years Smoked: 20 e-Cigarette/Vaping Use: Never Used Second Hand Smoke Exposure: No Advance Directives Date on File: 08/04/22 service: No Current occupational status: disabled Cognitive needs: No Hearing needs: No Vision needs: No Review of Systems Const Denies chills, Denies fatigue, Denies fever(s), Denies frequent falls, Denies weakness, Denies weight gain and Denies weight loss ENT Denies dizziness Card Denies chest pain, Denies leg edema, Denies lightheadedness, Denies palpitations, Denies dyspnea and Denies dyspnea on exertion Resp Denies cough, Denies dyspnea and Denies dyspnea on exertion GI Denies hematochezia Musc Denies abnormal gait, Denies muscle weakness, Denies numbness, Denies radiating pain into limb and Denies tingling Neuro Denies abnormal gait, Denies dizziness, Denies frequent falls, Denies numbness, Denies tingling and Denies weakness Endo Denies fatigue and Denies palpitations Physical Exam Vital Signs: Last Vital Signs Pulse 68 03/18/24 15:06 BP 130/60 05/18/23 15:06 BMI result Body Mass Index 21.5 GENERAL APPEARANCE: in no acute distress. NECK: no carotid bruit, no significant jugular venous distention. SKIN: no suspicious lesions, warm and dry. HEART: no murmurs, regular rate and rhythm. LUNGS: Clear to auscultation. ABDOMEN: soft, nontender. EXTREMITIES: no edema. PERIPHERAL PULSES: equal. NEUROLOGIC: Demented. Unable to follow simple commands. Oriented to self. Assessment & Plan Assessment & Plan (1) Dementia: Code(s): F03.90 - Unspecified dementia, unspecified severity, without behavioral disturbance, psychotic disturbance, mood disturbance, and anxiety (2) Cardiomyopathy: Code(s): I42.9 - Cardiomyopathy, unspecified Plan [age] year female with dementia and cardiomyopathy here for follow-up. In July 2022 she was diagnosed with new onset congestive heart failure and cardiomyopathy with EF 25 30%. Right ventricular was also mildly dilated with normal function. She was started on guideline directed medical therapy with significant improvement in symptoms and echocardiography in March 2023 is showing EF 50-55%. She is euvolemic and clinically stable. No changes in medications required. She will see us back in 6 months. Thank you for allowing me to participate in the care of your patient. Please feel free to contact me if you have any questions. Coding Level of Care Code Est Pt Level 2 (40249) Diagnoses Dementia F03.90 Cardiomyopathy I42.9
== END 2023-05-18 15:25 | disposition home or self-care (01) ==
PROVIDERS: PCP Internal Medicine; Visit Provider Internal Medicine Cardiovascular Disease
DX: F03.90 Unspecified dementia, unspecified severity, without behavioral disturbance, psychotic disturbance, mood disturbance, and anxiety (principal); I42.9 Cardiomyopathy, unspecified
CPT/HCPCS: 99212

== ENCOUNTER → 2023-05-18 15:03 | Outpatient (BNVA) | payer OTHER, SELFPAY | PROVIDERS: PCP Internal Medicine; Visit Provider Internal Medicine Cardiovascular Disease | DX: F03.90 Unspecified dementia, unspecified severity, without behavioral disturbance, psychotic disturbance, mood disturbance, and anxiety (principal); I42.9 Cardiomyopathy, unspecified | CPT/HCPCS: 99212 ==

== ENCOUNTER 2023-06-18 16:50 | Outpatient (AMB) | payer OTHER, SELFPAY ==
[2023-06-18 17:00] VITALS: BP 122/76; BMI 21.6
--- NOTE | 2023-06-18 17:00 | A.OFFPC_ITS ---
Vital Signs 06/18/23 17:00 Height 5 ft 5 in Weight 130 lb BMI 21.6 BP 122/76 Blood Pressure Location Lt brachial Position Sitting Intake Visit Reasons: physical exam Intake Note: Patient here for a physical exam Social Media Marketer Required: No Accompanied by: Daughter Allergies No Known Allergies [No Known Allergies*] Allergy (Verified 06/18/23 17:09) Medication List - Last Reconciled 06/18/23 by Camila Gambino MD acetaminophen 650 mg (2 x 325 mg) PO Q6H PRN [adult diapers As directed] blood pressure monitor As directed carvedilol 3.125 mg See Protocol PO BID collagenase clostridium histo. (Santyl) 1 appl See Protocol topical DAILY 30 days fluoxetine 10 mg PO DAILY 90 days furosemide 40 mg See Protocol PO DAILY quetiapine (Seroquel) 25 mg PO BEDTIME PRN risperidone 0.5 mg PO BID 30 days sacubitril-valsartan 24-26 mg (Entresto) 1 tab See Protocol PO BID spironolactone 25 mg See Protocol PO DAILY underpads (Bed Underpads) As directed [wipes As directed] Tobacco use date assessed: 06/18/23 Dental Screening Dental Screen Date: 06/18/23 Did you have a dental visit in the last 12 months?: No Did you have a dental problem in the last 6 months where you did not have access to dental care?: No Was dental information given to patient?: Patient has dentist HPI HPI Comments History of Present Illness Details This is a 58-year-old female with advanced dementia and cardiomyopathy that comes today accompanied by daughter which is the configuration specialist for her physical exam. She has advanced dementia for few years and is nonverbal and bowel/bladder incontinence due to this matter. Able to walk with no assistive device but does not follow any instruction. Daughter has to feed the patient. Needs hands on in all the basic activities of daily living. She follows with Neurology. She also has cardiomyopathy follow by cardiology and last echocardiogram was March 2023 showing ejection fraction of 50-55% which has improved. Has not gain 5 lb in a week. Has never had a bone density or colono scopy as per daughter which is the historian. Last mammogram was over a year ago. Last Pap smear was over 5 years ago. We will order this and we are aware that this will be very difficult to do due to her not being cooperative. Patient does have a history of alcohol abuse before having dementia and has family history of dementia in first-degree relatives. [facility], [facility] Medical History (Updated 06/19/23 @ 10:28 by Camila Gambino MD) Diffuse sclerosis CHF (congestive heart failure) Dementia Cardiomyopathy Pressure ulcer Bowel and bladder incontinence Encounter to establish care Depression Hypertension SBO (small bowel obstruction) B12 deficiency Surgical History History of incisional hernia repair History of ventral hernia repair History of section Family History Father Pacemaker Chronic mental illness Hypertension Mother Hypertension Chronic mental illness Family/Other Chronic mental illness Brother No problems noted. Sister No problems noted. Son No problems noted. Daughter No problems noted. Daughter No problems noted. Daughter No problems noted. Social History Household Members: Family Household Members Other:: lives with son Housing: Apartment Do you presently have visiting nurse or other home services: Yes (2 days per week) Unable to assess alcohol history related to: Unable to respond Alcohol intake: former Comment: 1:1 Patient Tobacco Use Status: Former Tobacco user Tobacco use type: Cigarette Years Smoked: 20 e-Cigarette/Vaping Use: Never Used Second Hand Smoke Exposure: No Advance Directives Date on File: 08/04/22 service: No Current occupational status: disabled Cognitive needs: No Hearing needs: No Vision needs: No Questionnaire PHQ-9 Over the last 2 weeks, how often have you been bothered by any of the following problems? 1. Little interest or pleasure in doing things: not at all 2. Feeling down, depressed, or hopeless: not at all 3. Trouble falling or staying asleep, or sleeping too much: several days 4. Feeling tired or having little energy: not at all 5. Poor appetite or overeating: not at all 6. Feeling bad about yourself - or that you are a failure or have let yourself or your family down: not at all 7. Trouble concentrating on things, such as reading the newspaper or watching television: not at all 8. Moving or speaking so slowly that other people could have noticed. Or the opposite - being so fidgety or restless that you have been moving around a lot more than usual: several days 9. Thoughts that you would be better off or of hurting yourself in some way: not at all Total score: 2 Depression Screening Interpretation: Negative Depression Screening Done: Yes 85001 - PHQ-9 Billing: Yes Source: Developed by Drs. Shravan Ramos, Rayna Tenorio, Nav Wolff and colleagues, with an educational ninoska from [employer]. Thrive Questionnaire Date Thrive assessed: 06/18/23 I am a: Parent/Caregiver What is your living situation today?: I have a steady place to live Within the past 12 months, did the food you bought not last and you didn't have the money to get more?: Never true Within the past 12 months, did you worry whether your food would run out before you got money to buy more?: Never true Do you have trouble paying for medicines?: No Do you have trouble getting transportation to medical appointments?: No Do you have trouble paying your heating and electricity bill?: No Do you have trouble taking care of your child, family member or friend?: No Do you have trouble with day-to-day activities such as bathing, preparing meals, shopping, managing finances, etc.?: Yes Are you currently unemployed and looking for a job?: No Are you interested in more education?: No Please select the resources that you would like help with: None Currently or been in a relationship where the following occur: no concerns reported THRIVE Score: 0 AUDIT C Alcohol Use Questionnaire (AUDIT-C) 1. How often do you have a drink containing alcohol?: Never Total Score: 0 Score Reviewed/Action Taken: No ERVIN-7 AMB Questionnaire ERVIN-7 Date ERVIN - 7 assessed: 06/18/23 Feeling nervous, anxious, or on edge: 1 = Several days Not being able to stop or control worryin = Not at all Worrying too much about different things: 0 = Not at all Trouble relaxin = Several days Being so restless that it is hard to sit still: 1 = Several days Becoming easily annoyed or irritable: 0 = Not at all Feeling afraid as if something awful might happen: 0 = Not at all Total ERVIN-7 score (0-4 normal; 5-9 mild; 10-14 moderate; 15-21 severe): 3 Source: Developed by Drs. Shravan Ramos, Rayna Tenorio, Nav Wolff and colleagues, with an educational ninoska from [employer]. ERVIN-7 Assessment Billing ERVIN-7 Assessment Tool: ERVIN-7 Assessment 96126 Review of Systems Const All systems reviewed & are unremarkable except as noted in HPI and below Card Denies chest pain at rest, Denies chest pain with activity, Denies edema, Denies irregular heart rhythm, Denies claudication, Denies dyspnea, Denies dyspnea on exertion, Denies orthopnea, Denies paroxysmal nocturnal dyspnea and Denies slow heart rate Resp Denies cough, Denies dyspnea and Denies dyspnea on exertion GI Denies abdominal pain, Denies change in bowel habits, Denies excessive flatus, Reports fecal incontinence, Denies nausea and Denies vomiting Reports urinary incontinence Musc Denies atrophy, Denies deformity and Denies limited range of motion Skin/Breast Denies bleeding lesions, Denies changing lesions and Denies rash Neuro Reports memory loss Psych Reports memory loss Physical exam (Primary Care) Vital Signs: Last Vital Signs BP 122/76 06/18/23 17:00 BMI result Body Mass Index 21.6 Tobacco/Smoking Status: Tobacco use Status Tobacco use date assessed 06/18/23 06/18/23 17:05 Patient Tobacco Use Status Former Tobacco user 06/18/23 17:05 Tobacco use type Cigarette 06/18/23 17:05 e-Cigarette/Vaping Use Never Used 06/18/23 17:05 PHQ-9: PHQ-9 Score PHQ-9: Total score 2 06/18/23 17:10 Depression Screening Interpretation: Negative Thrive Assessment: Date of Thrive Assessment Date Thrive assessed 06/18/23 06/18/23 17:05 Currently or been in a relationship where the following occur: no concerns reported HENMT Head: Yes normal to inspection, Yes normocephalic and Yes atraumatic Ears: external ears normal Eyes General: appearance normal, both eyes and all related structures Eyelids: Yes eyelids normal Conjunctivae: conjunctivae normal Neck Neck: Yes normal visual inspection and Yes supple Resp Effort & Inspection: normal respiratory effort Auscultation: clear to auscultation bilaterally Cardio Jugular venous distension: no JVD Rate: regular rate Rhythm: regular rhythm Heart sounds: S1 normal heart sound present and S2 normal heart sound present GI Inspection: Yes normal to inspection Palpation (GI): Soft to palpation and nontender Auscultation: normal bowel sounds Skin General skin exam: no rashes or lesions noted Extrem General: Yes full ROM Assessment and Plan Assessment & Plan (1) Physical exam: Code(s): Z00.00 - Encounter for general adult medical examination without abnormal findings Plan: Repeat in a year. (2) Dementia: Code(s): F03.90 - Unspecified dementia, unspecified severity, without behavioral disturbance, psychotic disturbance, mood disturbance, and anxiety Qualifiers: Dementia type: Alzheimer's Alzheimer's disease onset: early onset Dementia severity: severe Dementia behavioral or psychological symptom: with other behavioral disturbance Qualified Code(s): G30.0 - Alzheimer's disease with early onset; F02.C18 - Dementia in other diseases classified elsewhere, severe, with other behavioral disturbance Plan: Follow-up with neurology. (3) Cardiomyopathy: Code(s): I42.9 - Cardiomyopathy, unspecified Plan: Continue carvedilol. Follow-up with Cardiology. The goal is to not gain 5 lb in a week. Orders: Orders Vitamin D 25-OH Total 06/18/23 E55.9 - Vitamin D deficiency, unspecified Thyroid Stimulating Hormone 06/18/23 F03.90 - Unspecified dementia, unspecified severity, without behavioral disturbance, psychotic disturbance, mood disturbance, and anxiety IRON PROFILE 06/18/23 F03.90 - Unspecified dementia, unspecified severity, without behavioral disturbance, psychotic disturbance, mood disturbance, and anxiety MM screening mammo BI 06/18/23 Z12.31 - Encounter for screening mammogram for malignant neoplasm of breast Vitamin B12 and Folate 06/18/23 E53.8 - Deficiency of other specified B group vitamins NT-proBNP 06/18/23 I50.22 - Chronic systolic (congestive) heart failure Comprehensive [place]. Panel Fast 06/18/23 I50.22 - Chronic systolic (congestive) heart failure Lipid Panel 06/18/23 I10 - Essential (primary) hypertension Syphilis Screen 06/18/23 F03.90 - Unspecified dementia, unspecified severity, without behavioral disturbance, psychotic disturbance, mood disturbance, and anxiety Complete Blood Count Auto Diff 06/18/23 D64.9 - Anemia, unspecified, F03.90 - Unspecified dementia, unspecified severity, without behavioral disturbance, psychotic disturbance, mood disturbance, and anxiety XR DEXA axial skeleton 06/18/23 N95.9 - Unspecified menopausal and perimenopausal disorder Referrals Gastroenterology Referral Z12.11 - Encounter for screening for malignant neoplasm of colon [facility] Referral Z12.4 - Encounter for screening for malignant neoplasm of cervix Medications: New quetiapine 50 mg PO BEDTIME 90 days 90 tabs 1RF Discontinued quetiapine (Seroquel) Discontinued Reason: No Longer Medically Relevant 25 mg PO BEDTIME PRN 30 tabs 0RF insomnia G47.00 - Insomnia, unspecified Coding Level of Care Code Est Pt Prev Care 40-64y(79859) Diagnoses Physical exam Z00.00 Severe early onset Alzheimer's dementia with other behavioral disturbance G30.0; F02.C18 Dementia type: Alzheimer's Alzheimer's disease onset: early onset Dementia severity: severe Dementia behavioral or psychological symptom: with other behavioral disturbance Cardiomyopathy I42.9 Additional Codes ERVIN-7 Assessment Billing - ERVIN-7 Assessment Tool: ERVIN-7 Assessment [id number] ([id number]) Time Spent (min) 35
== END 2023-06-18 17:26 | disposition home or self-care (01) ==
PROVIDERS: PCP Internal Medicine; Visit Provider Internal Medicine
DX: Z00.00 Encounter for general adult medical examination without abnormal findings (principal); G30.0 Alzheimer's disease with early onset; F02.C18 Dementia in other diseases classified elsewhere, severe, with other behavioral disturbance; I42.9 Cardiomyopathy, unspecified
CPT/HCPCS: 99396

== ENCOUNTER 2023-07-14 10:35 | Outpatient (REF) | payer OTHER, SELFPAY ==
--- NOTE | ~2023-07-14 | MM_ITS ---
EXAMINATION: BONE DENSITOMETRY CLINICAL INDICATION: Unspecified menopausal and perimenopausal disorder. COMPARISON: This is the patient's baseline examination. TECHNIQUE: Using a dual-energy x-ray absorptiometry was performed of the . The images are of good technical quality. Summary results are attached. FINDINGS: LEFT FEMUR, NECK: BMD 0.886 g/cm2, Z-score 0.3, T-score -1.1, osteopenia. LEFT FEMUR, TOTAL: BMD 0.963 g/cm2, Z-score 0.7, T-score -0.4, normal. AP SPINE L1-L4 (excluding L3): The data of L1-L4 has been changed to exclude the L3 vertebral body, because degenerative sclerosis at this level may cause overestimation of lumbar spine density. BMD 1.310 g/cm2, Z-score 2.5, T-score 1.2, normal. IDENTIFIED RISK FACTORS: Early menopause, secondary osteoporosis, menopause, height loss, rheumatoid arthritis, dementia. HISTORY OF FRACTURE: None listed. MEDICATIONS: None listed. MM/XR DEXA axial skeleton IMPRESSION: 1. DIAGNOSIS: Osteopenia based on the lowest T-score value of -1.1 in the femoral neck applying World Health Organization criteria. 2. 10-YEAR FRACTURE RISK PREDICTION, FRAX: Major osteoporotic fracture (clinical spine, forearm, hip or shoulder) 3.9%. Hip fracture 0.3%. 3. Treatment Recommendations: NOF guidelines recommend consideration for treatment in postmenopausal women and men age 50 and older presenting with the following: -A hip or vertebral (clinical or morphometric) fracture. -T-score less than or equal to -2.5 at the femoral neck or spine after appropriate evaluation to exclude secondary causes. -Low bone mass at the hip or spine and a 10-year fracture probability by FRAX of greater than or equal to 3% for hip fracture or greater than or equal to 20% for major osteoporotic fracture based on the [place] adapted WHO algorithm. 4. Other Recommendations: All treatment decisions require clinical judgment and consideration of individual patient factors, including patient preferences, comorbidities, previous drug use, risk factors not captured in the FRAX model (e.g. frailty, falls, vitamin D deficiency, increased bone turnover, interval significant decline in bone density) and possible under or overestimation of fracture risk by FRAX. Additional medical evaluation for secondary cause of low bone mineral density may be appropriate. FUTURE SCAN RECOMMENDATION: People with diagnosed cases of osteoporosis or at high risk for fracture should have regular bone mineral density tests. For patients eligible for Medicare, routine testing is allowed once every 2 years. The testing frequency can be increased to one year for patients who have rapidly progressing disease, those who are receiving or discontinuing medical therapy to restore bone mass, or have additional risk factors.
== END 2023-07-14 10:36 | disposition home or self-care (01) ==
LOC: HO.MAMMO 10:35
PROVIDERS: Visit Provider Internal Medicine
DX: Z13.820 Encounter for screening for osteoporosis (principal); Z78.0 Asymptomatic menopausal state
CPT/HCPCS: 77080

== ENCOUNTER 2023-08-05 11:58 | Outpatient (REF) | payer OTHER, SELFPAY | END 2023-08-05 11:59 | disposition home or self-care (01) | LOC: HO.MAMMO 11:58 | PROVIDERS: PCP Internal Medicine; Visit Provider Internal Medicine | DX: Z13.89 Encounter for screening for other disorder (principal) ==

== ENCOUNTER 2023-09-07 11:58 | Outpatient (REF) | payer OTHER, SELFPAY ==
--- NOTE | ~2023-09-07 | US_ITS ---
US SCREENING ULTRASOUND BREAST, BILATERAL CLINICAL INFORMATION: Patient unable to tolerate mammography due to underlying condition/dementia. COMPARISON: 03/23/2017, 04/04/2015 mammography. No prior ultrasound. TECHNIQUE: Ultrasound of the breast is performed with real-time chang scale imaging and color Doppler. All 4 quadrants and the retroareolar regions of both breasts were interrogated. Examination limited as patient was unable to abduct her arms, and hence the technologist could not evaluate the axillae. FINDINGS: LEFT BREAST: On the images submitted for review, no mass, area of architectural distortion, complex cyst or other sonographically suspicious lesion is identified. RIGHT BREAST: On the images submitted for review, no mass, area of architectural distortion, complex cyst or other sonographically suspicious lesion is identified. US/US breast BI complete IMPRESSION: -No findings suspicious for malignancy in either breast. -Unable to evaluate the axillae. ASSESSMENT: BI-RADS 1 - Negative RECOMMENDATION: 1 year F/U This patient's information was entered into a reminder system with a target due date for their next mammogram.
== END 2023-09-07 11:59 | disposition home or self-care (01) ==
LOC: HO.MAMMO 11:58
PROVIDERS: PCP Internal Medicine; Visit Provider Internal Medicine
DX: Z12.39 Encounter for other screening for malignant neoplasm of breast (principal)
CPT/HCPCS: 76641

== ENCOUNTER → 2023-09-07 12:00 | Outpatient (BNV) | payer OTHER, SELFPAY | PROVIDERS: PCP Internal Medicine; Visit Provider Radiology Diagnostic Radiology | DX: Z12.39 Encounter for other screening for malignant neoplasm of breast (principal) | CPT/HCPCS: 76641 ==

== ENCOUNTER 2024-01-27 12:41 | Outpatient (AMB) | payer OTHER, SELFPAY ==
[2024-01-27 12:51] VITALS: BP 120/68; PULSE 68; O2SAT 99; BMI 21.0
--- NOTE | 2024-01-27 12:51 | MHC.OFFVIS ---
Vital Signs 01/27/24 12:51 Height 5 ft 5 in Weight 126 lb 4 oz BMI 21.0 BP 120/68 Blood Pressure Location Rt brachial Position Sitting Pulse 68 Pulse Source Pulse Oximeter Pulse Oximetry (%) 99 Oxygen Delivery Method Room Air Intake Visit Reasons: V-XM-Iyizfduq/Psychotic Dist/ Mood Dis/Anxiety Interventional Radiologist Required: No Accompanied by: Daughter Allergies No Known Allergies [No Known Allergies*] Allergy (Verified 01/27/24 12:56) Medication List - Last Reconciled 01/27/24 by Radha Love MD acetaminophen 650 mg (2 x 325 mg) PO Q6H PRN [adult diapers As directed] alprazolam 1 mg PO DAILY PRN 1 day blood pressure monitor As directed carvedilol 3.125 mg See Protocol PO BID collagenase clostridium histo. (Santyl) 1 appl See Protocol topical DAILY 30 days fluoxetine 10 mg PO DAILY 90 days furosemide 40 mg See Protocol PO DAILY quetiapine 100 mg PO BID 30 days risperidone 0.5 mg PO BID 30 days sacubitril-valsartan 24-26 mg (Entresto) 1 tab See Protocol PO BID spironolactone 25 mg See Protocol PO DAILY underpads (Bed Underpads) As directed [wipes As directed] HPI Comments Details: 58y/o female with Advanced Dementia comes for management. SHe is accompanied by her daughter who helps with history. A certified medical associate helped with todays visit. Candelario [id number] She was diagnosed with dementia about 4-5 years ago .she started having difficulty dressing , misplacing things etc. Currently she lives with her daughter - confused with her family and needs help with all her ADLs. she has mood swings- cries intermittently , mumbles, laughs etc. No aggressive behavior. she has day night reversal . she frequently mumbles . 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 she also has h/o suicidal attempt. The daughter reports she has seizure like activity for 1 year and had 7 episodes. - generalized tonic clonic activity Both her parents of dementia [facility] Medical History (Updated 01/27/24 @ 13:20 by Radha Love MD) Seizure Dementia Diffuse sclerosis CHF (congestive heart failure) Dementia Cardiomyopathy Pressure ulcer Bowel and bladder incontinence Encounter to establish care Depression Hypertension SBO (small bowel obstruction) B12 deficiency Surgical History History of incisional hernia repair History of ventral hernia repair History of section Family History Father Pacemaker Chronic mental illness Hypertension Mother Hypertension Chronic mental illness Family/Other Chronic mental illness Brother No problems noted. Sister No problems noted. Son No problems noted. Daughter No problems noted. Daughter No problems noted. Daughter No problems noted. Social History Household Members: Family Household Members Other:: lives with son Housing: Apartment Do you presently have visiting nurse or other home services: Yes (2 days per week) Unable to assess alcohol history related to: Unable to respond Alcohol intake: former Comment: 1:1 Patient Tobacco Use Status: Former Tobacco user Tobacco use type: Cigarette Years Smoked: 20 e-Cigarette/Vaping Use: Never Used Second Hand Smoke Exposure: No Advance Directives Date on File: 08/04/22 service: No Current occupational status: disabled Cognitive needs: No Hearing needs: No Vision needs: No Review of Systems Neuro Reports confusion Psych Reports confusion Physical Exam Vital Signs: Last Vital Signs Pulse 68 01/27/24 12:51 BP 120/68 01/27/24 12:51 Pulse Ox 99 01/27/24 12:51 Oxygen Delivery Method Room Air 01/27/24 12:51 BMI result Body Mass Index 21.0 Const General: in distress, anxious and confusion Nutritional Appearance: average body habitus Orientation/consciousness: confusion Neuro Other: mumbles, paces, confused, abnormal movements , automatism a full examination was not performed today General: confusion and Unable to assess gait Cranial nerves: Yes Normal facial strength present Cognition (Neuro): abnormal cognition Gait exam (Neuro): Unable to assess gait Assessment & Plan Assessment & Plan (1) Dementia: Code(s): F03.90 - Unspecified dementia, unspecified severity, without behavioral disturbance, psychotic disturbance, mood disturbance, and anxiety Category: Medical Qualifiers: Dementia type: Alzheimer's Alzheimer's disease onset: early onset Dementia severity: severe Dementia behavioral or psychological symptom: with psychotic disturbance Qualified Code(s): G30.0 - Alzheimer's disease with early onset; F02.C2 - Dementia in other diseases classified elsewhere, severe, with psychotic disturbance (2) Seizure: Comment: likely related to dementia Code(s): R56.9 - Unspecified convulsions Category: Medical Plan Discussed diagnosis with daughter. I will hold off on anticonvulsants for now If she has increased episodes consider adding dilantin or keppra . Patient should be on palliative care or Hospice. F/u with PCP Coding Level of Care Code New Pt Level 4 (03865) Diagnoses 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; F02.C2 Dementia type: Alzheimer's Alzheimer's disease onset: early onset Dementia severity: severe Dementia behavioral or psychological symptom: with psychotic disturbance Seizure R56.9
== END 2024-01-27 13:24 | disposition home or self-care (01) ==
PROVIDERS: Visit Provider Psychiatry & Neurology Neurology
DX: G30.0 Alzheimer's disease with early onset (principal); F02.C2 Dementia in other diseases classified elsewhere, severe, with psychotic disturbance; R56.9 Unspecified convulsions
CPT/HCPCS: 99204

== ENCOUNTER → 2024-01-27 12:41 | Outpatient (BNVA) | payer OTHER, SELFPAY | PROVIDERS: Visit Provider Psychiatry & Neurology Neurology | DX: G30.0 Alzheimer's disease with early onset (principal); F02.C2 Dementia in other diseases classified elsewhere, severe, with psychotic disturbance; R56.9 Unspecified convulsions | CPT/HCPCS: 99202 ==

== ENCOUNTER 2024-06-27 12:29 | Outpatient (AMB) | payer OTHER, SELFPAY ==
--- NOTE | 2024-06-27 12:35 | MHC.PC.OV ---
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 (Santyl) 1 appl See Protocol topical DAILY 30 days furosemide 40 mg See Protocol PO DAILY quetiapine 100 mg PO BID 30 days risperidone 0.5 mg PO BID 30 days sacubitril-valsartan 24-26 mg (Entresto) 1 tab See Protocol PO BID spironolactone 25 mg See Protocol PO DAILY underpads (Bed Underpads) As directed [wipes As directed] Tobacco use date assessed: 06/27/24 Dental Screening Dental Screen Date: 06/27/24 Did you have a dental visit in the last 12 months?: No Did you have a dental problem in the last 6 months where you did not have access to dental care?: No Was dental information given to patient?: Patient declined HPI HPI Comments History of Present Illness Details The patient is a 59-year-old female presenting for follow-up of heart failure, dementia, and convulsions. These conditions are managed in part with support from neurology. According to previous records, a last recorded echocardiogram, which was done last year, showed an ejection fraction of 50% to 55%, providing guidance on her current cardiac management without recent signs of decompensated heart failure, such as edema or unexplained weight increase. The rationale for using a hospital-type bed is primarily tied to her requirement for positional management, reducing the risk of aspiration pneumonia considering her compromised neurologic and cardiac status. Her diet has remained adequate without issues, maintaining a BMI of 21, though neurologically related weight issues may appear misleading. Semi electric hospital bed would prevent aspiration pneumonia as the patient has choke a few times with a regular bed. Due to congestive heart failure she needs a 30 degree angle to avoid shortness on breath. She also has hypertension well controlled with medications. Adherence to daily weight measurements to monitor for fluid retention is confirmed, and she maintains communication with her multidisciplinary care team regarding these chronic health conditions. [facility] Medical History Seizure Dementia Diffuse sclerosis CHF (congestive heart failure) Dementia Cardiomyopathy Pressure ulcer Bowel and bladder incontinence Encounter to establish care Depression Hypertension SBO (small bowel obstruction) B12 deficiency Surgical History History of incisional hernia repair History of ventral hernia repair History of section Family History Father Pacemaker Chronic mental illness Hypertension Mother Hypertension Chronic mental illness Family/Other Chronic mental illness Brother No problems noted. Sister No problems noted. Son No problems noted. Daughter No problems noted. Daughter No problems noted. Daughter No problems noted. Social History Household Members: Family Household Members Other:: lives with son Housing: Apartment Do you presently have visiting nurse or other home services: Yes (2 days per week) Unable to assess alcohol history related to: Unable to respond Alcohol intake: former Comment: 1:1 Patient Tobacco Use Status: Former Tobacco user Tobacco use type: Cigarette Years Smoked: 20 e-Cigarette/Vaping Use: Never Used Second Hand Smoke Exposure: No Advance Directives Date on File: 08/04/22 service: No Current occupational status: disabled Cognitive needs: Yes Hearing needs: No Vision needs: No Questionnaire PHQ-9 Over the last 2 weeks, how often have you been bothered by any of the following problems? 1. Little interest or pleasure in doing things: not at all 2. Feeling down, depressed, or hopeless: not at all 3. Trouble falling or staying asleep, or sleeping too much: not at all 4. Feeling tired or having little energy: not at all 5. Poor appetite or overeating: not at all 6. Feeling bad about yourself - or that you are a failure or have let yourself or your family down: not at all 7. Trouble concentrating on things, such as reading the newspaper or watching television: not at all 8. Moving or speaking so slowly that other people could have noticed. Or the opposite - being so fidgety or restless that you have been moving around a lot more than usual: not at all 9. Thoughts that you would be better off or of hurting yourself in some way: not at all Total score: 0 Depression Screening Interpretation: Negative Depression Screening Done: Yes 18411 - PHQ-9 Billing: Yes Source: Developed by Drs. Shravan Ramos, Rayna Tenorio, Nav Wolff and colleagues, with an educational ninoska from [employer]. Thrive Questionnaire Date Thrive assessed: 06/27/24 I am a: Patient What is your living situation today?: I have a steady place to live Within the past 12 months, did the food you bought not last and you didn't have the money to get more?: Never true Within the past 12 months, did you worry whether your food would run out before you got money to buy more?: Never true Do you have trouble paying for medicines?: No Do you have trouble getting transportation to medical appointments?: No Do you have trouble paying your heating and electricity bill?: No Do you have trouble taking care of your child, family member or friend?: No Do you have trouble with day-to-day activities such as bathing, preparing meals, shopping, managing finances, etc.?: No Are you currently unemployed and looking for a job?: No Are you interested in more education?: No Please select the resources that you would like help with: None Currently or been in a relationship where the following occur: I choose not to answer THRIVE Score: 0 AUDIT C Alcohol Use Questionnaire (AUDIT-C) 1. How often do you have a drink containing alcohol?: Never Total Score: 0 ERVIN-7 AMB Questionnaire ERVIN-7 Date ERVIN - 7 assessed: 06/27/24 Feeling nervous, anxious, or on edge: 1 = Several days Not being able to stop or control worryin = Not at all Worrying too much about different things: 0 = Not at all Trouble relaxin = More than half the days Being so restless that it is hard to sit still: 2 = More than half the days Becoming easily annoyed or irritable: 2 = More than half the days Feeling afraid as if something awful might happen: 0 = Not at all Total ERVIN-7 score (0-4 normal; 5-9 mild; 10-14 moderate; 15-21 severe): 7 Source: Developed by Drs. Shravan Ramos, Rayna Tenorio, Nav Wolff and colleagues, with an educational ninoska from [employer]. Review of Systems Const All systems reviewed & are unremarkable except as noted in HPI and below Card Denies chest pain at rest, Denies chest pain with activity, Denies edema, Denies irregular heart rhythm, Denies claudication, Denies dyspnea, Denies dyspnea on exertion, Denies orthopnea, Denies paroxysmal nocturnal dyspnea and Denies slow heart rate Resp Denies cough, Denies dyspnea and Denies dyspnea on exertion Denies urinary incontinence, Denies urinary hesitancy and Denies urinary urgency Musc Denies atrophy, Denies deformity and Denies limited range of motion Neuro Reports confusion Psych Reports confusion Physical exam (Primary Care) Vital Signs: Last Vital Signs BP 118/76 06/27/24 12:38 BMI result Body Mass Index 21.6 Tobacco/Smoking Status: Tobacco use Status Tobacco use date assessed 06/27/24 06/27/24 12:43 Patient Tobacco Use Status Former Tobacco user 06/27/24 12:36 Tobacco use type Cigarette 06/27/24 12:36 e-Cigarette/Vaping Use Never Used 06/27/24 12:36 PHQ-9: PHQ-9 Score PHQ-9: Total score 0 06/27/24 12:43 Depression Screening Interpretation: Negative Thrive Assessment: Date of Thrive Assessment Date Thrive assessed 06/27/24 06/27/24 12:43 Currently or been in a relationship where the following occur: I choose not to answer Const Other: Patient constantly mumbling General: combative, confusion and ill appearing chronically Orientation/consciousness: confusion Resp Effort & Inspection: normal respiratory effort Auscultation: clear to auscultation bilaterally Cardio Jugular venous distension: no JVD Rate: regular rate Rhythm: regular rhythm Heart sounds: S1 normal heart sound present and S2 normal heart sound present Neuro General: confusion Extrem General: Yes full ROM Coding Level of Care Code Est Pt Level 4 (08571) Complex EM visit Add On G2211 Diagnoses Seizure R56.9 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; F02.C2 Dementia type: Alzheimer's Alzheimer's disease onset: early onset Dementia severity: severe Dementia behavioral or psychological symptom: with psychotic disturbance Cardiomyopathy I42.9 Hypertension I10 Insomnia G47.00 Additional Codes PHQ-9 - 96409 - PHQ-9 Billing: Yes ([id number]) Time Spent (min) 24 Assessment & Plan Assessment & Plan (1) Seizure: Comment: likely related to dementia Code(s): R56.9 - Unspecified convulsions Category: Medical (2) Dementia: Code(s): F03.90 - Unspecified dementia, unspecified severity, without behavioral disturbance, psychotic disturbance, mood disturbance, and anxiety Category: Medical Qualifiers: Dementia type: Alzheimer's Alzheimer's disease onset: early onset Dementia severity: severe Dementia behavioral or psychological symptom: with psychotic disturbance Qualified Code(s): G30.0 - Alzheimer's disease with early onset; F02.C2 - Dementia in other diseases classified elsewhere, severe, with psychotic disturbance (3) Cardiomyopathy: Code(s): I42.9 - Cardiomyopathy, unspecified Category: Medical (4) Hypertension: Code(s): I10 - Essential (primary) hypertension Category: Medical (5) Insomnia: Code(s): G47.00 - Insomnia, unspecified Category: Medical Plan The management plan addresses her chronic conditions with an emphasis on strategic management of heart failure and prevention of aspiration pneumonia, largely via the use of a hospital-type bed to ensure proper positioning. Neurologic consultation remains integral for seizure prevention and dementia care. Regular daily weight checks are encouraged to monitor for signs of fluid overload. No alterations to the current care strategy were discussed beyond these focus points, given stable existing control of heart-related symptoms and overall good nutritional status. Patient was informed and verbally consented to the use of an ambient scribe for clinic note documentation during this visit. I informed the patient about the necessity of maintaining an elevated sleeping position to mitigate the risk of aspiration pneumonia, given her diagnosed heart failure status. This recommendation aligns with previously established guidance against fluid retention complications. I emphasized the ongoing importance of neurology's involvement in managing her convulsions and underlying dementia, maintaining status quo given current treatment response and stability. I also reiterated the significance of monitoring weight daily, given her heart condition. We discussed the possible introduction of an adjustable bed frame to meet her clinical needs regarding proper sleeping postures to further enhance safety and symptom control. Medications: New hospital bed As directed 1 ea 0RF F02.C2 - Dementia in other diseases classified elsewhere, severe, with psychotic disturbance, G30.0 - Alzheimer's disease with early onset, I42.9 - Cardiomyopathy, unspecified, R56.9 - Unspecified convulsions Patient Instructions: - Monitor weight daily to detect any significant changes. - Maintain current dietary habits to support health status. - Ensure sleeping position accommodates elevation to prevent potential aspiration. - Continue follow-up appointments with neurology and cardiology as scheduled.
[2024-06-27 12:38] VITALS: BP 118/76; BMI 21.6
== END 2024-06-27 12:59 | disposition home or self-care (01) ==
LOC: HO.HMCH 12:30
PROVIDERS: PCP Internal Medicine; Visit Provider Internal Medicine
DX: R56.9 Unspecified convulsions (principal); G30.0 Alzheimer's disease with early onset; F02.C2 Dementia in other diseases classified elsewhere, severe, with psychotic disturbance; I42.9 Cardiomyopathy, unspecified; I10 Essential (primary) hypertension; G47.00 Insomnia, unspecified

== ENCOUNTER → 2024-06-27 12:29 | Outpatient (BNVA) | payer OTHER, SELFPAY | PROVIDERS: PCP Internal Medicine; Visit Provider Internal Medicine | DX: R56.9 Unspecified convulsions (principal); G30.9 Alzheimer's disease, unspecified; F02.C2 Dementia in other diseases classified elsewhere, severe, with psychotic disturbance; I42.9 Cardiomyopathy, unspecified; I10 Essential (primary) hypertension; G47.00 Insomnia, unspecified | CPT/HCPCS: 96127; 99212 ==

== ENCOUNTER 2024-11-08 13:39 | Outpatient (AMB) | payer OTHER, SELFPAY ==
--- NOTE | 2024-11-08 13:43 | MHC.PC.OV ---
Vital Signs 11/08/24 13:44 Height 5 ft 5 in BMI Reason not done Patient refused/unable BP 120/62 Blood Pressure Location Lt brachial Position Sitting Respiration 18 Pulse 91 Pulse Source Pulse Oximeter Temp 97.3 F Temp Source Temporal Artery Scan Pulse Oximetry (%) 95 Oxygen Delivery Method Room Air Intake Visit Reasons: chf Chief Technology Officer Required: No Accompanied by: Self / Same As Patient Allergies No Known Allergies (No Known Allergies*) Allergy (Verified 11/08/24 13:54) Medication List - Last Reconciled 11/08/24 by Camila Gambino MD acetaminophen 650 mg (2 x 325 mg) PO Q6H PRN [adult diapers As directed] alprazolam 1 mg PO DAILY PRN 1 day blood pressure monitor As directed carvedilol 3.125 mg See Protocol PO BID collagenase clostridium histo. (Santyl) 1 appl See Protocol topical DAILY 30 days furosemide 40 mg See Protocol PO DAILY hospital bed As directed quetiapine 100 mg PO BID 30 days risperidone 0.5 mg PO BID 30 days sacubitril-valsartan 24-26 mg (Entresto) 1 tab See Protocol PO BID spironolactone 25 mg See Protocol PO DAILY underpads (Bed Underpads) As directed [wipes As directed] Tobacco use date assessed: 11/08/24 Dental Screening Dental Screen Date: 11/08/24 Did you have a dental visit in the last 12 months?: No Did you have a dental problem in the last 6 months where you did not have access to dental care?: No Was dental information given to patient?: No HPI HPI Comments History of Present Illness Details The patient is a 59-year-old female presenting with heart failure with reduced ejection fraction, the last echocardiogram showed an improvement in ejection fraction to 50-55%. The patient is currently on a regimen including Carvedilol, Entresto, and spironolactone for heart management. She also has dementia and seizures secondary to dementia which has progressively worsened and now needs wheelchair and shower chair with grab bars so the kier hand can take care of her. Also has history of anemia and insomnia. The patient also has a history of hypertension, managed with medications including Carvedilol. She is not allergic to any medications and uses Tylenol and Talprasolam as needed. The patient requires assistive devices for mobility, including a shower chair, grab bar, and wheelchair. [facility] Medical History Seizure Dementia Diffuse sclerosis CHF (congestive heart failure) Dementia Cardiomyopathy Pressure ulcer Bowel and bladder incontinence Encounter to establish care Depression Hypertension SBO (small bowel obstruction) B12 deficiency Surgical History History of incisional hernia repair History of ventral hernia repair History of section Family History Father Pacemaker Chronic mental illness Hypertension Mother Hypertension Chronic mental illness Family/Other Chronic mental illness Brother No problems noted. Sister No problems noted. Son No problems noted. Daughter No problems noted. Daughter No problems noted. Daughter No problems noted. Social History Household Members: Family Household Members Other:: lives with son Housing: Apartment Do you presently have visiting nurse or other home services: Yes (2 days per week) Unable to assess alcohol history related to: Unable to respond Alcohol intake: former Comment: 1:1 Patient Tobacco Use Status: Former Tobacco user Tobacco use type: Cigarette Years Smoked: 20 e-Cigarette/Vaping Use: Never Used Second Hand Smoke Exposure: No Advance Directives Date on File: 08/04/22 service: No Current occupational status: disabled Cognitive needs: Yes Hearing needs: No Vision needs: No Questionnaire PHQ-9 Over the last 2 weeks, how often have you been bothered by any of the following problems? 1. Little interest or pleasure in doing things: not at all 2. Feeling down, depressed, or hopeless: not at all 3. Trouble falling or staying asleep, or sleeping too much: not at all 4. Feeling tired or having little energy: not at all 5. Poor appetite or overeating: not at all 6. Feeling bad about yourself - or that you are a failure or have let yourself or your family down: not at all 7. Trouble concentrating on things, such as reading the newspaper or watching television: not at all 8. Moving or speaking so slowly that other people could have noticed. Or the opposite - being so fidgety or restless that you have been moving around a lot more than usual: not at all 9. Thoughts that you would be better off or of hurting yourself in some way: not at all Total score: 0 Depression Screening Interpretation: Negative Depression Screening Done: Yes 65326 - PHQ-9 Billing: Yes Source: Developed by Drs. Shravan Ramos, Rayna Tenorio, Nav Wolff and colleagues, with an educational ninoska from [employer]. Thrive Questionnaire Date Thrive assessed: 11/08/24 I am a: Patient What is your living situation today?: I have a steady place to live Within the past 12 months, did the food you bought not last and you didn't have the money to get more?: Never true Within the past 12 months, did you worry whether your food would run out before you got money to buy more?: Never true Do you have trouble paying for medicines?: No Do you have trouble getting transportation to medical appointments?: No Do you have trouble paying your heating and electricity bill?: No Do you have trouble taking care of your child, family member or friend?: No Do you have trouble with day-to-day activities such as bathing, preparing meals, shopping, managing finances, etc.?: No Are you currently unemployed and looking for a job?: No Are you interested in more education?: No Please select the resources that you would like help with: None Currently or been in a relationship where the following occur: I choose not to answer THRIVE Score: 0 AUDIT C Alcohol Use Questionnaire (AUDIT-C) 1. How often do you have a drink containing alcohol?: Never Total Score: 0 Score Reviewed/Action Taken: No ERVIN-7 AMB Questionnaire ERVIN-7 Date ERVIN - 7 assessed: 11/08/24 Feeling nervous, anxious, or on edge: 1 = Several days Not being able to stop or control worryin = Not at all Worrying too much about different things: 0 = Not at all Trouble relaxin = More than half the days Being so restless that it is hard to sit still: 2 = More than half the days Becoming easily annoyed or irritable: 2 = More than half the days Feeling afraid as if something awful might happen: 0 = Not at all Total ERVIN-7 score (0-4 normal; 5-9 mild; 10-14 moderate; 15-21 severe): 7 Source: Developed by Drs. Shravan Ramos, Rayna Tenorio, Nav Wolff and colleagues, with an educational ninoska from [employer]. ERVIN-7 Assessment Billing ERVIN-7 Assessment Tool: ERVIN-7 Assessment 74082 Review of Systems Const All systems reviewed & are unremarkable except as noted in HPI and below Card Denies chest pain at rest, Denies chest pain with activity, Denies edema, Denies irregular heart rhythm, Denies claudication, Denies dyspnea, Denies dyspnea on exertion, Denies orthopnea, Denies paroxysmal nocturnal dyspnea and Denies slow heart rate Resp Denies cough, Denies dyspnea and Denies dyspnea on exertion Physical exam (Primary Care) Vital Signs: Last Vital Signs Temp 97.3 F 11/08/24 13:44 Pulse 91 11/08/24 13:44 Resp 18 11/08/24 13:44 BP 120/62 11/08/24 13:44 Pulse Ox 95 11/08/24 13:44 Oxygen Delivery Method Room Air 11/08/24 13:44 Tobacco/Smoking Status: Tobacco use Status Tobacco use date assessed 11/08/24 11/08/24 13:56 Patient Tobacco Use Status Former Tobacco user 11/08/24 13:56 Tobacco use type Cigarette 11/08/24 13:56 e-Cigarette/Vaping Use Never Used 11/08/24 13:56 PHQ-9: PHQ-9 Score PHQ-9: Total score 0 11/08/24 13:56 Depression Screening Interpretation: Negative Thrive Assessment: Date of Thrive Assessment Date Thrive assessed 11/08/24 11/08/24 13:56 Currently or been in a relationship where the following occur: I choose not to answer Resp Effort & Inspection: normal respiratory effort Auscultation: clear to auscultation bilaterally Cardio Jugular venous distension: no JVD Rate: regular rate Rhythm: regular rhythm Heart sounds: S1 normal heart sound present and S2 normal heart sound present Extrem General: Yes full ROM Coding Level of Care Code Est Pt Level 4 (22289) Complex EM visit Add On G2211 Diagnoses Cardiomyopathy I42.9 Hypertension I10 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; F02.C2 Dementia type: Alzheimer's Alzheimer's disease onset: early onset Dementia severity: severe Dementia behavioral or psychological symptom: with psychotic disturbance Seizure R56.9 Anemia D64.9 Insomnia G47.00 Additional Codes ERVIN-7 Assessment Billing - ERVIN-7 Assessment Tool: ERVIN-7 Assessment 08200 ([id number]) PHQ-9 - 93072 - PHQ-9 Billing: Yes ([id number]) Time Spent (min) 23 Assessment & Plan Assessment & Plan (1) Cardiomyopathy: Code(s): I42.9 - Cardiomyopathy, unspecified Category: Medical (2) Hypertension: Code(s): I10 - Essential (primary) hypertension Category: Medical (3) Dementia: Code(s): F03.90 - Unspecified dementia, unspecified severity, without behavioral disturbance, psychotic disturbance, mood disturbance, and anxiety Category: Medical Qualifiers: Dementia type: Alzheimer's Alzheimer's disease onset: early onset Dementia severity: severe Dementia behavioral or psychological symptom: with psychotic disturbance Qualified Code(s): G30.0 - Alzheimer's disease with early onset; F02.C2 - Dementia in other diseases classified elsewhere, severe, with psychotic disturbance (4) Seizure: Comment: likely related to dementia Code(s): R56.9 - Unspecified convulsions Category: Medical (5) Anemia: Code(s): D64.9 - Anemia, unspecified Category: Medical (6) Insomnia: Code(s): G47.00 - Insomnia, unspecified Category: Medical Plan Plan Patient was informed and verbally consented to the use of an ambient scribe for clinic note documentation during this visit. 1. Unspecified systolic (congestive) heart failure I50.20 HCC 85 The patient will continue on her current medication regimen, including Carvedilol, Entresto, and spironolactone. A repeat echocardiogram is planned to monitor the ejection fraction. 2. Essential (primary) hypertension I10 Hypertension is managed with Carvedilol, and the patient's blood pressure is stable. 3. Unspecified dementia, unspecified severity, without behavioral disturbance, psychotic disturbance, mood disturbance, and anxiety F03.90 HCC 52 4. Unspecified convulsions R56.9 HCC 79 Orders: Orders Thyroid Stimulating Hormone Today F02.C18 - Dementia in other diseases classified elsewhere, severe, with other behavioral disturbance, G30.0 - Alzheimer's disease with early onset CA echo transthoracic complete Today I42.9 - Cardiomyopathy, unspecified NT-proBNP Today I42.9 - Cardiomyopathy, unspecified Comprehensive [place]. Panel Fast Today I42.9 - Cardiomyopathy, unspecified Vitamin B12 and Folate Today E53.8 - Deficiency of other specified B group vitamins Lipid Panel Today E78.5 - Hyperlipidemia, unspecified, I42.9 - Cardiomyopathy, unspecified Complete Blood Count Auto Diff Today D64.9 - Anemia, unspecified, F02.C18 - Dementia in other diseases classified elsewhere, severe, with other behavioral disturbance, G30.0 - Alzheimer's disease with early onset Medications: New [wheelchair] As directed 1 ea 0RF F02.C2 - Dementia in other diseases classified elsewhere, severe, with psychotic disturbance, G30.0 - Alzheimer's disease with early onset, I42.9 - Cardiomyopathy, unspecified, R56.9 - Unspecified convulsions [shower chair] As directed 1 ea 0RF F02.C2 - Dementia in other diseases classified elsewhere, severe, with psychotic disturbance, G30.0 - Alzheimer's disease with early onset, I42.9 - Cardiomyopathy, unspecified, R56.9 - Unspecified convulsions [grab bar] As directed 2 ea 0RF F02.C2 - Dementia in other diseases classified elsewhere, severe, with psychotic disturbance, G30.0 - Alzheimer's disease with early onset, I42.9 - Cardiomyopathy, unspecified, R56.9 - Unspecified convulsions
[2024-11-08 13:44] VITALS: BP 120/62; PULSE 91; RESP 18; TEMP 36.3; O2SAT 95
== END 2024-11-08 14:07 | disposition home or self-care (01) ==
PROVIDERS: PCP Internal Medicine; Visit Provider Internal Medicine
DX: I42.9 Cardiomyopathy, unspecified (principal); G30.0 Alzheimer's disease with early onset; F02.C2 Dementia in other diseases classified elsewhere, severe, with psychotic disturbance; R56.9 Unspecified convulsions; I10 Essential (primary) hypertension; D64.9 Anemia, unspecified; G47.00 Insomnia, unspecified

== ENCOUNTER → 2024-11-08 13:39 | Outpatient (BNVA) | payer OTHER, SELFPAY | PROVIDERS: PCP Internal Medicine; Visit Provider Internal Medicine | DX: I11.0 Hypertensive heart disease with heart failure (principal); I50.9 Heart failure, unspecified; R56.9 Unspecified convulsions; I42.9 Cardiomyopathy, unspecified; G30.0 Alzheimer's disease with early onset; F02.C2 Dementia in other diseases classified elsewhere, severe, with psychotic disturbance; D64.9 Anemia, unspecified; G47.00 Insomnia, unspecified; Z99.3 Dependence on wheelchair; Z79.899 Other long term (current) drug therapy | CPT/HCPCS: 96127; 99212 ==